=== PATIENT | female | born 1985 | race Caucasian/White ===

== ENCOUNTER → 2018-02-07 11:59 | Outpatient (CLI) | payer MEDICAID, SELFPAY ==
[2018-02-07 14:22] LABS: HCG Qualitative, Serum Negative (Negative)
[2018-02-07 14:33] LABS: Free T4 (Free Thyroxine) 1.39 ng/dl (0.76-1.46); Thyroid Stimulating Hormone 5.42 uIU/ml (0.358-3.740)
== END ==
PROVIDERS: PCP Physician Assistant; Visit Provider Physician Assistant
DX: E03.9 Hypothyroidism, unspecified (principal); N91.2 Amenorrhea, unspecified
CPT/HCPCS: 36415; 84439; 84443; 84703

== ENCOUNTER 2020-06-02 15:47 | Emergency (ER) | payer MEDICAID, SELFPAY ==
[2020-06-02 15:48] VITALS: PULSE 89; RESP 16; TEMP 37.2; O2SAT 98; BMI 56.5
--- NOTE | 2020-06-02 15:58 | HMH.EDUTC ---
[facility] [place] Disposition Clinical Impression: Sinusitis Qualifiers: Sinusitis location: unspecified location Chronicity: acute Recurrence: non-recurrent Qualified Code(s): J01.90 - Acute sinusitis, unspecified Otitis media Qualifiers: Otitis media type: suppurative Chronicity: acute Laterality: bilateral Recurrence: non-recurrent Spontaneous tympanic membrane rupture: without spontaneous rupture Qualified Code(s): H66.003 - Acute suppurative otitis media without spontaneous rupture of ear drum, bilateral Disposition: Home, Self-Care Condition on Discharge: Good Instructions: Middle Ear Infection, DI for Sinusitis Additional Instructions: Drink plenty of fluids. Take tylenol or ibuprofen for pain or fever. Take the medications as directed. Follow up with your regular doctor. GO TO THE ER FOR ANY WORSENING SYMPTOMS Prescriptions: Brompheniramine/Pseudoephed/Dm [Bromfed Dm Cough Syrup] 5 ml PO Q6HP PRN #240 syrup PRN Reason: Cough Transmission Status: Received by [facility] Amoxicillin/Potassium Clav [Augmentin 875-125 Tablet] 1 tab PO Q12H 10 Days #20 tab Transmission Status: Received by [facility] predniSONE [Prednisone 20mg Tab] 20 mg PO BID 4 Days #8 tab Transmission Status: Received by [facility] Referrals: Dorothy Hernández APRN [Primary Care Provider] - Time of Disposition: 16:11 Medical Decision Making - Medical Records Medical records reviewed: No: I reviewed the patient's medical records. - Donal Inquiry Pt receiving controlled substance: No Vital Signs: 06/02/20 15:48 06/02/20 16:12 Temperature 98.9 F 98.9 F Temperature Source Oral Oral Pulse Rate 89 Pulse Rate [Right] 89 Respiratory Rate 16 16 Blood Pressure 132/70 Blood Pressure Source Automatic Cuff Blood Pressure Position Sitting 02 Sat by Pulse Oximetry 98 Oxygen Delivery Method Room Air Room Air [facility] [place] HPI - General Stated complaint: Sore throat GARCIA Congestion Time Seen by Provider: 06/02/20 15:58 - History of Present Illness Provider Complaint: She states that she has had a cough, sore throat and sinus congestion for the past 3 days. She denies any possible contact with someone with covid. - Related Data Previous Rx's Medication Instructions Recorded Amoxicillin/Potassium Clav 1 tab PO Q12H 10 Days #20 tab 04/01/21 [Augmentin 875-125 Tablet] Brompheniramine/Pseudoephed/Dm 5 ml PO Q6HP PRN #240 syrup 06/02/20 [Bromfed Dm Cough Syrup] predniSONE [Prednisone 20mg 20 mg PO BID 4 Days #8 tab 06/02/20 Tab] Allergies Allergy/AdvReac Type Severity Reaction Status Date / Time From LORTAB Allergy Severe I-HIVES Uncoded 02/19/17 15:24 LATEX Allergy Severe I-HIVES Uncoded 02/19/17 15:24 SULFA (SULFONAMIDE) Allergy Severe SWELLING Uncoded 02/19/17 15:24 [facility] History - Hepatitis A Screen Attestation statement:: This patient has been screened for Hepatitis A risk factors. I have reviewed the patient's past medical history: Yes ROS Obtained: Yes All systems reviewed & no additional complaints - Constitutional Constitutional: Denies body ache, Reports chills, Denies fever(s), Reports poor appetite, Reports malaise - Eyes Eyes: Denies eye discharge - ENT Ears, Nose, Mouth, and Throat: Reports as per HPI - Cardiovascular Cardiovascular: Denies chest pain - Respiratory Respiratory: Reports as per HPI Physical Exam - General General appearance: alert, in no apparent distress - Head Head exam: atraumatic, normocephalic, normal inspection - Eye Eye exam: Present: normal appearance, PERRL, EOMI - ENT ENT exam: Present: mucous membranes moist, normal external ear exam - Expanded ENT Exam TM/Canal exam: Bilateral TM: erythema, bulging, effusion Mouth exam: Present: normal external inspection Teeth exam: Present: normal inspection Throat exam: Present: tonsillar erythema, tonsillomegaly. Absent: tonsillar exudate, R peritonsillar mass, L periton
[2020-06-02 16:12] VITALS: BP 132/70; PULSE 89; RESP 16; TEMP 37.2; O2SAT 98
== END 2020-06-02 16:14 | disposition home or self-care (01) ==
PROVIDERS: Emergency Provider Nurse Practitioner Family; PCP Nurse Practitioner Family
DX: J01.90 Acute sinusitis, unspecified (principal); H66.003 Acute suppurative otitis media without spontaneous rupture of ear drum, bilateral; Z88.2 Allergy status to sulfonamides; Z88.5 Allergy status to narcotic agent; Z91.040 Latex allergy status
CPT/HCPCS: 99202; G0463

== ENCOUNTER 2021-02-22 16:10 | Emergency (ER) | payer MEDICAID, SELFPAY ==
[2021-02-22 16:35] VITALS: BP 148/83; PULSE 66; RESP 18; TEMP 36.4; O2SAT 100; BMI 57.4
--- NOTE | 2021-02-22 16:49 | XR_ITS ---
PROCEDURE INFORMATION: Exam: XR Right Forearm Exam date and time: 02/22/2021 4:49 PM Age: 35 years old Clinical indication: Injury or trauma; Fall; Blunt trauma (contusions or hematomas); Arm, lower; Right TECHNIQUE: Imaging protocol: XR Right forearm. Views: 2 views. COMPARISON: No relevant prior studies available. FINDINGS: Bones/joints: There is no evidence of acute fracture. There is no evidence of joint malalignment or dislocation. Soft tissues: No focal soft tissue swelling. IMPRESSION: 1. No evidence of acute fracture. 2. No evidence of acute dislocation.
--- NOTE | 2021-02-22 17:33 | HMH.EDUTC ---
[facility] [place] Disposition Clinical Impression: Forearm sprain Qualifiers: Encounter type: initial encounter Laterality: right Qualified Code(s): S63.501A - Unspecified sprain of right wrist, initial encounter Disposition: Home, Self-Care Condition on Discharge: Good Instructions: Sprain, How To Perform RICE (Rest, Ice, Compress, Elevate) Additional Instructions: *RICE, Rest the extremity, Ice 15-20 minutes 3-4 times daily, Compress- wear the cesar wrap as discussed as much as possible to help reduce swelling and pain, Elevate the extremity when at rest *Cesar wrap is for support and help control swelling, use it except in the shower. Be sure that is not to tight but not to loose either *Elevate when resting *Ibuprofen as directed on package every 6-8 hours as needed for pain an inflammation. If need something more can take Tylenol in between doses of Ibuprofen to help Immediately follow up with your family doctor for new or worsening of symptoms, or no noticeable improvement over the next 3-5 days You may call back later this evening for the official reading of your xray Follow up with Orthopedics if needed Referrals: Dorothy Hernández APRN [Primary Care Provider] - As needed Gianluca Hernández JR, MD [Physician] - Time of Disposition: 17:34 Medical Decision Making - Donal Inquiry Pt receiving controlled substance: No Donal was queried for this patient: No Vital Signs: 02/22/21 16:35 02/22/21 17:35 Temperature 97.6 F 97.6 F Temperature Source Oral Pulse Rate 66 Pulse Rate [Left Brachial] 66 Respiratory Rate 18 18 Blood Pressure 148/83 H Blood Pressure [Left Arm] 148/83 H Blood Pressure Mean [Left Arm] 104 Blood Pressure Source [Left Arm] Automatic Cuff Blood Pressure Position [Left Arm] Sitting 02 Sat by Pulse Oximetry 100 Oxygen Delivery Method Room Air - Radiology Data #1 Image(s): Forearm Image Reviewed: Yes I reviewed the patient's radiology image Preliminary Findings: No Fracture Seen [facility] [place] HPI - General Stated complaint: AO [id number] right arm pain,home accident Time Seen by Provider: 02/22/21 16:50 Mode of Arrival: Ambulatory Source of Information: Patient Limitations: No Limitations Description of Symptoms (Recalled from Triage Doc. 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 it certain ways - Related Data Allergies Allergy/AdvReac Type Severity Reaction Status Date / Time acetaminophen [From Lortab] Allergy Verified 02/22/21 17:07 hydrocodone [From Lortab] Allergy Verified 02/22/21 17:07 latex Allergy Verified 02/22/21 17:07 Sulfa (Sulfonamide Allergy Verified 02/22/21 17:07 Antibiotics) - Worker's Comp Is this a Worker's Comp case?: No [facility] History - Hepatitis A Screen Drug use history?: No High risk sexual behaviors?: No History of sexually transmitted infection?: No Currently employed?: No Childcare worker?: No Do you have indoor plumbing?: Yes Do you have electricity?: Yes Attestation statement:: This patient has been screened for Hepatitis A risk factors. I have reviewed the patient's past medical history: Yes ROS Obtained: Yes All systems reviewed & no additional complaints, Yes Systems reviewed as appropriate & no additional complaints - Constitutional Constitutional: Reports system reviewed and no additional complaints, except as docu, Denies body ache, Denies chills, Denies fever(s) - ENT Ears, Nose, Mouth, and Throat: Reports system reviewed and no additional comp
[2021-02-22 17:35] VITALS: BP 148/83; PULSE 66; RESP 18; TEMP 36.4; O2SAT 100
== END 2021-02-22 17:40 | disposition home or self-care (01) ==
PROVIDERS: Emergency Provider Nurse Practitioner; PCP Nurse Practitioner Family
DX: S63.501A Unspecified sprain of right wrist, initial encounter (principal); W01.0XXA Fall on same level from slipping, tripping and stumbling without subsequent striking against object, initial encounter; Y92.73 Farm field as the place of occurrence of the external cause; Z88.2 Allergy status to sulfonamides
CPT/HCPCS: 73090; 99202; G0463

== ENCOUNTER → 2021-10-09 06:45 | Outpatient (CLI) | payer MEDICAID, SELFPAY ==
[2021-10-09 18:46] LABS: Basophils # 0.1 K/mm3 (0-0.2); Basophils % 0.6 % (0.1-2.0); Eosinophils % 0.1 % (0.1-12.0); Hematocrit 39.1 % (37.0-47.0); Hemoglobin 12.5 g/dL (12.2-16.2); Lymphocytes % 26.8 % (10-50); Mean Corpuscular HGB Conc 31.8 g/dL (31.8-35.4); Mean Corpuscular Hemoglobin 30.9 pg (27.0-31.2); Mean Platelet Volume 10.2 fl (7.4-10.4); Monocytes # 0.8 K/mm3 (0.1-1.0); Monocytes % 5.5 % (1.7-9.3); Platelet Count 375 K/mm3 (142-424); Red Blood Count 4.03 M/mm3 (4.20-5.40); Red Cell Distribution Width 14.4 % (11.5-17.5)
[2021-10-09 19:01] LABS: MANUAL DIFFERENTIAL MANUAL DIFFERENTIAL (MANUAL DIFF)
[2021-10-09 19:20] LABS: Lymphocytes % 30 % (10-50); Monocytes % 5 % (2-9); Neutrophils % 65 % (42-76); Platelet Estimate Normal; RBC Morphology Normal; Total Cells Counted 100
== END ==
PROVIDERS: PCP Family Medicine; Visit Provider Family Medicine
DX: R53.83 Other fatigue (principal); I10 Essential (primary) hypertension; Z20.822 Contact with and (suspected) exposure to COVID-19
CPT/HCPCS: 84439; 84443; 85007; 85025; C9803; U0003; U0005

== ENCOUNTER → 2021-11-09 08:46 | Outpatient (CLI) | payer MEDICAID, SELFPAY ==
[2021-11-09 14:13] LABS: Basophils # 0.1 K/mm3 (0-0.2); Basophils % 1.2 % (0.1-2.0); Eosinophils # 0.1 K/mm3 (0.0-0.4); Eosinophils % 1.4 % (0.1-12.0); Hematocrit 37.5 % (37.0-47.0); Hemoglobin 12.2 g/dL (12.2-16.2); Lymphocytes # 1.5 K/mm3 (0.7-4.5); Lymphocytes % 18.4 % (10-50); Mean Corpuscular HGB Conc 32.4 g/dL (31.8-35.4); Mean Corpuscular Hemoglobin 30.7 pg (27.0-31.2); Mean Corpuscular Volume 94.6 fl (81-99); Mean Platelet Volume 10.5 fl (7.4-10.4); Monocytes # 0.5 K/mm3 (0.1-1.0); Monocytes % 6.1 % (1.7-9.3); Neutrophils % 72.9 % (37.0-80.0); Platelet Count 331 K/mm3 (142-424); Red Blood Count 3.97 M/mm3 (4.20-5.40); Red Cell Distribution Width 13.9 % (11.5-17.5); White Blood Count 8.2 K/mm3 (4.8-10.8)
[2021-11-09 14:38] LABS: Free T4 (Free Thyroxine) 0.94 ng/dl (0.78-2.19)
[2021-11-09 14:49] LABS: Thyroid Stimulating Hormone 7.72 uIU/mL (0.465-4.68)
[2021-11-13 18:00] LABS: Vitamin B6 3.1 ug/L (3.4-65.2)
== END ==
PROVIDERS: PCP Family Medicine; Visit Provider Family Medicine
DX: E01.0 Iodine-deficiency related diffuse (endemic) goiter (principal); R53.83 Other fatigue; I10 Essential (primary) hypertension
CPT/HCPCS: 36415; 84207; 84439; 84443; 85025

== ENCOUNTER → 2021-12-11 11:45 | Outpatient (CLI) | payer MEDICAID, SELFPAY ==
[2021-12-11 18:48] LABS: Thyroid Stimulating Hormone 5.75 uIU/mL (0.465-4.68)
== END ==
PROVIDERS: PCP Family Medicine; Visit Provider Family Medicine
DX: E03.9 Hypothyroidism, unspecified (principal)
CPT/HCPCS: 84443

== ENCOUNTER → 2021-12-23 11:29 | Outpatient (CLI) | payer MEDICAID, SELFPAY ==
--- NOTE | 2021-12-23 11:41 | XR_ITS ---
PROCEDURE INFORMATION: Exam: XR Right Foot Complete; Alignment Exam date and time: 12/23/2021 11:42 AM Age: 36 years old Clinical indication: Pain; Foot; Bilateral; Additional info: Foot pain TECHNIQUE: Imaging protocol: Radiologic exam of the Right foot. Views: 3 or more views. COMPARISON: No relevant prior studies available. FINDINGS: Bones/joints: Normal. No acute fracture. Joint spaces are preserved. No dislocation or subluxation. Soft tissues: Normal. IMPRESSION: No evidence of acute osseous injury.
--- NOTE | 2021-12-23 11:41 | XR_ITS ---
PROCEDURE INFORMATION: Exam: XR Left Foot Complete; Alignment Exam date and time: 12/23/2021 11:42 AM Age: 36 years old Clinical indication: Pain; Foot; Bilateral; Additional info: Foot pain TECHNIQUE: Imaging protocol: Radiologic exam of the Left foot. Views: 3 or more views. COMPARISON: No relevant prior studies available. FINDINGS: Bones/joints: Minimal enthesophyte plantar margin of the calcaneus at the site of attachment of the plantar aponeurosis. Soft tissues: Normal. IMPRESSION: 1. No evidence of acute osseous injury. 2. Prominent calcaneal spur.
== END ==
PROVIDERS: PCP Family Medicine; Visit Provider Nurse Practitioner Family
DX: M79.672 Pain in left foot (principal); M79.671 Pain in right foot
CPT/HCPCS: 73630

== ENCOUNTER → 2022-04-10 20:49 | Outpatient (CLI) | payer MEDICAID, SELFPAY ==
[2022-04-10 19:51] LABS: Alanine Aminotransferase 20 U/L (12-78); Albumin Level 4.1 g/dl (3.5-5.0); Albumin/Globulin Ratio 1.3 (1.1-1.8); Alkaline Phosphatase 105 U/L (38-126); Anion Gap 10.4 mEq/L (5-15); Aspartate Amino Transferase 25 U/L (14-36); Blood Urea Nitrogen 10 mg/dl (7-17); Carbon Dioxide 27 mmol/L (22.0-30.0); Chloride 102 mmol/L (98-107); Cholesterol 196 mg/dl (140-200); Estimated Glomerular Filt Rate 112 ml/min (>60); GFR (African American) 136 ML/MIN (>60); Globulin 3.1 g/dL (1.3-3.2); Glucose 94 mg/dl (74-100); HDL Cholesterol 39 mg/dl (40-60); Potassium 4.4 mmoL/L (3.5-5.1); Sodium 135 mmol/L (136-145); Total Protein,Serum 7.2 g/dl (6.3-8.2); Triglycerides 189 mg/dl (30-150); VLDL Cholesterol 38 mg/dL (0-40)
[2022-04-10 20:03] LABS: Direct LDL Cholesterol 112.28 mg/dL (100-129)
== END ==
LOC: LAB 04-13 00:35 → LAB.DROPOF 04-18 08:14
PROVIDERS: PCP Nurse Practitioner Family; Visit Provider Nurse Practitioner Family
DX: I10 Essential (primary) hypertension (principal); E03.9 Hypothyroidism, unspecified
CPT/HCPCS: 80053; 80061; 84443

== ENCOUNTER → 2022-05-31 07:12 | Outpatient (CLI) | payer MEDICAID, SELFPAY ==
[2022-05-31 17:58] LABS: Basophils # 0.1 K/mm3 (0-0.2); Basophils % 1.3 % (0.1-2.0); Eosinophils # 0.4 K/mm3 (0.0-0.4); Eosinophils % 4.2 % (0.1-12.0); Hemoglobin 12.3 g/dL (12.2-16.2); Lymphocytes # 2.6 K/mm3 (0.7-4.5); Lymphocytes % 27.5 % (10-50); Mean Corpuscular HGB Conc 30.8 g/dL (31.8-35.4); Mean Corpuscular Hemoglobin 28.7 pg (27.0-31.2); Mean Corpuscular Volume 93.2 fl (81-99); Mean Platelet Volume 9.8 fl (7.4-10.4); Monocytes # 0.4 K/mm3 (0.1-1.0); Monocytes % 4.4 % (1.7-9.3); Neutrophils # 5.8 K/mm3 (1.8-7.8); Neutrophils % 62.6 % (37.0-80.0); Platelet Count 343 K/mm3 (142-424); Red Blood Count 4.29 M/mm3 (4.20-5.40); Red Cell Distribution Width 14.1 % (11.5-17.5); White Blood Count 9.3 K/mm3 (4.8-10.8)
[2022-05-31 18:04] LABS: Alanine Aminotransferase 18 U/L (12-78); Albumin Level 4.3 g/dl (3.5-5.0); Albumin/Globulin Ratio 1.4 (1.1-1.8); Alkaline Phosphatase 118 U/L (38-126); Anion Gap 12.5 mEq/L (5-15); Aspartate Amino Transferase 24 U/L (14-36); Bilirubin,Total 0.7 mg/dl (0.2-1.3); Blood Urea Nitrogen 12 mg/dl (7-17); Carbon Dioxide 29 mmol/L (22.0-30.0); Chloride 99 mmol/L (98-107); Estimated Glomerular Filt Rate 94 ml/min (>60); GFR (African American) 114 ML/MIN (>60); Glucose 94 mg/dl (74-100); Potassium 4.5 mmoL/L (3.5-5.1); Sodium 136 mmol/L (136-145); Total Protein,Serum 7.3 g/dl (6.3-8.2)
[2022-05-31 18:35] LABS: Thyroid Stimulating Hormone 7.35 uIU/mL (0.465-4.68)
== END ==
PROVIDERS: PCP Family Medicine; Visit Provider Family Medicine
DX: E03.9 Hypothyroidism, unspecified (principal); I10 Essential (primary) hypertension; R60.9 Edema, unspecified
CPT/HCPCS: 80053; 84443; 85025

== ENCOUNTER 2022-06-18 08:23 | Observation (INO) | payer MEDICAID, SELFPAY ==
[2022-06-18 08:24] VITALS: BP 161/97; PULSE 84; RESP 18; TEMP 36.7; O2SAT 99; BMI 43.2
--- NOTE | 2022-06-18 08:36 | PC.NURSE ---
ED MD AT BEDSIDE
--- NOTE | 2022-06-18 08:49 | CA_ITS ---
FINAL REPORT TECHNIQUE: Ultrasound images of the deep venous system were obtained from the left groin to the calf veins. CLINICAL HISTORY: leg swelling x 1 month. No known trauma. Morbid obesity. HTN. FINDINGS: The deep venous system is normally compressible. Normal flow is identified. IMPRESSION: No evidence of left lower extremity DVT. Reviewed, Interpreted and Dictated by Ronaldo Yepez III, MD Transcribed by Duane Bustamante Authenticated and [facility]
--- NOTE | 2022-06-18 08:51 | HMH.EDEXTP ---
Discharge Plan Disposition Patient Disposition: Admitted As Inpatient Prescriptions Prescriptions: No Action cetirizine 10 mg tablet 10 mg PO DAILY lisinopril 10 mg tablet 10 mg PO DAILY meloxicam 7.5 mg tablet 7.5 mg PO DAILY levothyroxine 125 mcg tablet 125 mcg PO DAILY Referrals Follow up/Referrals: Sourav Ambrocio MD [Primary Care Provider] - See instructions Clinical Impressions Clinical Impression: Cellulitis Instructions Patient Instructions: Cellulitis Discharge ED Provider: Jazmín Carmona Extremity Problem HPI General Chief complaint: Extremity Problem,Nontraumatic Stated complaint: left leg swollen, no accident Time Seen by Provider: 06/18/22 08:40 Mode of Arrival: Ambulatory Source of Information: Patient Limitations: No Limitations Description of Symptoms (Recalled from ER Triage Doc. by RN): PT C/O INCREASED SWELLING TO LEFT LOWER LEG FOR ABOUT 1 MONTH. HAS SEEN PCP ABOUT 1 WEEK AGO. REPORTS PAIN AND WARM TO TOUCH. History of Present Illness HPI Narrative: Patient is a 36-year-old female who is here secondary to left lower extremity swelling for 1 month. Patient is complaining about left lower extremity swelling and saw the primary care doctor 1 week ago. Patient has no fevers or chills. No trauma. Patient has no clotting disorder or long flight or long drive. No history of cancer. No hypercoagulable state. Complaint: extremity swelling Onset (ago): month(s) Consistency: constant Location: left and lower extremity Severity scale (1-10): 8 Quality: aching, dull and constant Radiation: distal Relieving factors: nothing Exacerbating factors: range of motion, walking, exertion and palpation Associated symptoms: denies other symptoms Related Data Home Medications Medication Instructions Recorded Confirmed cetirizine 10 mg tablet 10 mg PO DAILY Allergy symptoms 06/18/22 06/18/22 levothyroxine 125 mcg tablet 125 mcg PO DAILY THYROID 06/18/22 06/18/22 lisinopril 10 mg tablet 10 mg PO DAILY High blood pressure 06/18/22 06/18/22 meloxicam 7.5 mg tablet 7.5 mg PO DAILY Pain 06/18/22 06/18/22 Allergies Allergy/AdvReac Type Severity Reaction Status Date / Time hydrocodone [From Lortab] Allergy Verified 05/31/22 08:59 latex Allergy Verified 05/31/22 08:59 Sulfa (Sulfonamide Allergy Verified 05/31/22 08:59 Antibiotics) PFSH [facility] Disclaimer: The information contained in this section may have been updated after the patient was seen, as this information can be updated by other users. Medical History Calcaneal spur of left foot Callus of foot Forearm sprain Hypertension Metatarsalgia of both feet Nausea Otitis media Sinusitis Surgical History H/O tubal ligation History of cholecystectomy Previous section Family History Grandmother Cancer Coronary artery disease Kidney disease Grandfather Coronary artery disease Father Coronary artery disease Diabetes Heart attack Hypertension Kidney disease Mother Diabetes Stroke Social History Smoking Status: Never smoker alcohol intake: never substance use type: denies use current occupational status: unemployed Travel in the last 8 weeks: None household members: family and children housing: house ROS Obtained: Yes All systems reviewed & no additional complaints except as documented Constitutional Constitutional: Reports system reviewed and no additional complaints, except as documented Eyes Eyes: Reports system reviewed and no additional complaints, except as documented ENT Ears, Nose, Mouth, and Throat: Reports system reviewed and no additional complaints, except as documented Cardiovascular Cardiovascular: Reports system reviewed and no a
--- NOTE | 2022-06-18 08:51 | PC.NURSE ---
VASCULAR LAB NOTIFIED OF DOPPLER
--- NOTE | 2022-06-18 08:58 | PC.NURSE ---
SWING FRAME GRINDER OPERATOR AT BEDSIDE FOR DOPPLER
--- NOTE | 2022-06-18 09:11 | PC.NURSE ---
LABORATORY TECHNOLOGIST REPORTS DOPPLER IS NEGATIVE
--- NOTE | 2022-06-18 09:25 | PC.NURSE ---
ROUNDED ON PT AT THIS TIME. NO NEEDS VOICED
[2022-06-18 09:35] LABS: Chloride 100 mmol/L (98-107)
[2022-06-18 09:36] LABS: Potassium 4.3 mmoL/L (3.5-5.1); Sodium 136 mmol/L (136-145)
[2022-06-18 09:38] LABS: Alanine Aminotransferase 19 U/L (12-78); Alkaline Phosphatase 91 U/L (38-126); Anion Gap 14.3 mEq/L (5-15); Aspartate Amino Transferase 24 U/L (14-36); Bilirubin,Total 0.8 mg/dl (0.2-1.3); Blood Urea Nitrogen 9 mg/dl (7-17); Carbon Dioxide 26 mmol/L (22.0-30.0); Creatinine Clearance Estimated 144 mL/min (50-200); Estimated Glomerular Filt Rate 139 ml/min (>60); GFR (African American) 168 ML/MIN (>60)
[2022-06-18 09:39] LABS: Albumin Level 3.9 g/dl (3.5-5.0); Albumin/Globulin Ratio 1.1 (1.1-1.8); Calcium 8.7 mg/dl (8.4-10.2); Globulin 3.4 g/dL (1.3-3.2); Glucose 94 mg/dl (74-100); Total Protein,Serum 7.3 g/dl (6.3-8.2)
[2022-06-18 09:44] LABS: Basophils # 0.1 K/mm3 (0-0.2); Basophils % 0.6 % (0.1-2.0); Eosinophils # 0.3 K/mm3 (0.0-0.4); Eosinophils % 3.2 % (0.1-12.0); Hematocrit 35.9 % (37.0-47.0); Hemoglobin 11.6 g/dL (12.2-16.2); Lymphocytes # 2.2 K/mm3 (0.7-4.5); Lymphocytes % 22.9 % (10-50); Mean Corpuscular HGB Conc 32.5 g/dL (31.8-35.4); Mean Corpuscular Hemoglobin 29.1 pg (27.0-31.2); Mean Corpuscular Volume 89.5 fl (81-99); Mean Platelet Volume 8.4 fl (7.4-10.4); Monocytes # 0.4 K/mm3 (0.1-1.0); Monocytes % 3.6 % (1.7-9.3); Neutrophils # 6.6 K/mm3 (1.8-7.8); Neutrophils % 69.7 % (37.0-80.0); Platelet Count 249 K/mm3 (142-424); Red Blood Count 4.01 M/mm3 (4.20-5.40); Red Cell Distribution Width 14.1 % (11.5-17.5); White Blood Count 9.5 K/mm3 (4.8-10.8)
[2022-06-18 09:56] LABS: Activated Partial Thrombo Time 21.8 seconds (22.8-30.6); INR 0.89 (0.9-1.1); Prothrombin Time 9.7 seconds (10.1-12.5)
[2022-06-18 10:20] LABS: C-Reactive Protein 25.7 mg/L (0-4)
--- NOTE | 2022-06-18 10:35 | PC.NURSE ---
waiting artificial insemination technician back from dr. lynn (hospitalist)
[2022-06-18 10:38] LABS: D-Dimer 0.89 ug/mL (0.0-0.5)
[2022-06-18 10:39] LABS: Erythrocyte Sedimentation Rate 75 mm/hr (0-20)
[2022-06-18 10:40] LABS: Coronavirus 19, PCR Not Detected (NotDetected); Influenza A, PCR Not Detected (NotDetected); Influenza B, PCR Not Detected (NotDetected)
--- NOTE | 2022-06-18 10:40 | PC.NURSE ---
PT UPDATED ON POC BY DR BERGER, PT AGREES TO ADMISSION
--- NOTE | 2022-06-18 10:47 | EXP.PHA.CONS ---
Pharmacy Consult Date: 06/18/22 Time: 10:47 Referring provider: DR. BERGER Reason for Consult:: VANCOMYCIN DOSING Allergies Allergy/AdvReac Type Severity Reaction Status Date / Time hydrocodone [From Lortab] Allergy Verified 05/31/22 08:59 latex Allergy Verified 05/31/22 08:59 Sulfa (Sulfonamide Allergy Verified 05/31/22 08:59 Antibiotics) Home Medications Medication Instructions Recorded Confirmed Type cetirizine 10 mg tablet 10 mg PO DAILY ALLERGIES 06/18/22 06/18/22 History levothyroxine 125 mcg capsule 125 mcg PO DAILY THYROID 06/18/22 06/18/22 History lisinopril 10 mg tablet 10 mg PO DAILY High blood pressure 06/18/22 06/18/22 History New Prescriptions to Start Prescriptions: Height: 1.68 m Weight: 121.563 kg Laboratory Results:: Laboratory Results - last 24 hr 06/18/22 09:22: Sodium 136, Potassium 4.3, Chloride 100, Carbon Dioxide 26, Anion Gap 14.3, BUN 9, Creatinine 0.50 L, Estimated Creat Clear 144, Estimated GFR 139, Est GFR ( Amer) 168, Glucose 94, Calcium 8.7, Total Bilirubin 0.8, AST 24, ALT 19, Alkaline Phosphatase 91, Total Protein 7.3, Albumin 3.9, Globulin 3.4 H, Albumin/Globulin Ratio 1.1 06/18/22 09:22: PT 9.7 L, INR 0.89 L, APTT 21.8 L 06/18/22 09:37: WBC 9.5, RBC 4.01 L, Hgb 11.6 L, Hct 35.9 L, MCV 89.5, MCH 29.1, MCHC 32.5, RDW 14.1, Plt Count 249, MPV 8.4, Neut % (Auto) 69.7, Lymph % (Auto) 22.9, [place] % (Auto) 3.6, Eos % (Auto) 3.2, Baso % (Auto) 0.6, Neut # (Auto) 6.6, Lymph # (Auto) 2.2, [place] # (Auto) 0.4, Eos # (Auto) 0.3, Baso # (Auto) 0.1 06/18/22 09:37: ESR 75 H 06/18/22 09:37: C-Reactive Protein 25.7 H Medical History: Medical History (Updated 06/18/22 @ 08:36 by Dione Peterson RN) Calcaneal spur of left foot Callus of foot Forearm sprain Hypertension Metatarsalgia of both feet Nausea Otitis media Sinusitis Assessment and Plan Assessment and plan all Dx Assessment and Plan for all problems:: Pharmacokinetic dosing service Objective: Patient: Floor: Age: 36 yo Serum creatinine: 0.5 mg/dL Height: 66.0 Inches Weight (kg): 121.6 Assessment: IBW (kg): 59.30 Dosing wt(kg): 121.6 Estimated Creatinine clearance (ml/min): 130 Clearance limited to 130 ml/min to reduce risk of overdosing. CRCL method: Cockcroft and Gault using ibw(default). Drug selected: Vancomycin Loading dose (mg): 0 Vd (liters): 97.3 (factor used: 0.8 L/kg) Julio César (hr-1): 0.112 Half life (hrs): 6.19 Recommended dose: 2000 mg Interval: 8 hrs Infusion time (hrs): 2.0 Predicted peak (mcg/mL): 31.1 Predicted trough (mcg/mL): 15.88 Total body weight is being used for vancomycin dosing. Recommendations: Give Vancomycin 2000 mg q 8 hrs with an expected Cpeak of 31.1 mcg/ml and an expected Ctrough of 15.88 mcg/ml. ----Vanco only - ignore for aminoglycosides----- CLvanco= 10.90 L/hr AUC 0-24 /BASILIO Data: BASILIO 0.5 mcg/mL: AUC/BASILIO: 1100.9 BASILIO 1.0 mcg/mL: AUC/BASILIO: 550.5 --------- BASILIO 1.5 mcg/mL: AUC/BASILIO: 367.0 BASILIO 2.0 mcg/mL: AUC/BASILIO: 275.2
--- NOTE | 2022-06-18 10:48 | PC.NURSE ---
DR BERGER SPEAKING WITH DR. SHI FOR ADMISSION
--- NOTE | 2022-06-18 10:49 | HMH.PHAINT1 ---
Pharmacy Intervention Comments: MEDICATION RECONCILIATION COMPLETED ON PATIENT USING EXTERNAL FILL HISTORY FROM PHARMACY. -JEN DAVIDSON, MICHAELAD
--- NOTE | 2022-06-18 11:06 | PC.NURSE ---
dr. lynn stated would see pt prior to official admitting pt.
--- NOTE | 2022-06-18 11:08 | PC.NURSE ---
CARE MANAGEMENT NOTIFIED OF ADMISSION
[2022-06-18 11:10] LABS: Procalcitonin 0.042 ng/mL (0.0-2.0)
[2022-06-18 11:34] LABS: Lactic Acid 0.8 mmol/L (0.7-2.1)
[2022-06-18 11:44] LABS: Hemoglobin A1C 5.3 % (4.0-6.0)
--- NOTE | 2022-06-18 11:59 | PC.NURSE ---
REPORT GIVEN TO Tiffani LENTZ RN
--- NOTE | 2022-06-18 12:14 | EXP.HP ---
History of Present Illness *Admission Date: 06/18/22 *Reason for visit:: leg swelling, pain *History of present illness: Ms. Dickson is a 36-year-old female who presented with complaint of left lower leg pain from the ankle to the knee. Pain has been progressive over the past month. She notes occasional redness of the leg. Starting to have some pain in her right leg as well starting at the ankle. She denies any fevers, systemic symptoms, chest pain, nausea, vomiting, diarrhea, headache, trauma to her legs. Has not seen her PCP or been on antibiotics in the past month. ER initial work-up including imaging of her legs and labs. Doppler left lower extremity negative for DVT. White cell count normal however has elevated inflammatory markers. ER concern for cellulitis. Given pain and redness, initiated on IV vancomycin and cefepime. Consulted medicine for admission and further management. After arriving to the floor, patient is stable on room air. She states she is occasionally short of breath when chasing her kids but able to lay flat without dyspnea. Swelling and pain worse as the day goes on. Sometimes makes it hard to take her pants or socks off with the swelling. Denies any trauma or breaks in her skin. Does report family history of arthritis in her mom, not sure if it is rheumatologic. No known history of gout or arthritis in patient. [facility] Disclaimer: The information contained in this section may have been updated after the patient was seen, as this information can be updated by other users. Medical History Calcaneal spur of left foot Callus of foot Forearm sprain Hypertension Metatarsalgia of both feet Nausea Otitis media Sinusitis Surgical History H/O tubal ligation History of cholecystectomy Previous section Family History Diabetes Father Mother Coronary artery disease Grandmother Grandfather Father Kidney disease Grandmother Father Heart attack Father Cancer Grandmother Hypertension Father Stroke Mother Social History Smoking Status: Never smoker alcohol intake: never substance use type: denies use current occupational status: unemployed Travel in the last 8 weeks: None household members: family and children housing: house Review of Systems Review of Systems Review of systems (narrative): 14 point review of systems performed, pertinent positives and negatives as per [facility] Meds Home Medications and Allergies Home Medications Medication Instructions Recorded Confirmed Type cetirizine 10 mg tablet 10 mg PO DAILY Allergy symptoms 06/18/22 06/18/22 History levothyroxine 125 mcg tablet 125 mcg PO DAILY THYROID 06/18/22 06/18/22 History lisinopril 10 mg tablet 10 mg PO DAILY High blood pressure 06/18/22 06/18/22 History meloxicam 7.5 mg tablet 7.5 mg PO DAILY Pain 06/18/22 06/18/22 History New Prescriptions to Start Prescriptions: Allergies Allergy/AdvReac Type Severity Reaction Status Date / Time hydrocodone [From Lortab] Allergy Verified 05/31/22 08:59 latex Allergy Verified 05/31/22 08:59 Sulfa (Sulfonamide Allergy Verified 05/31/22 08:59 Antibiotics) Exam Data for Last 24 hours Vital signs and Labs for Last 24 Hours: Temp Pulse Resp BP Pulse Ox 98.0 F 84 18 161/97 H 99 06/18/22 08:24 06/18/22 08:24 06/18/22 08:24 06/18/22 08:24 06/18/22 08:24 Laboratory Results - last 24 hr 06/18/22 09:22: Sodium 136, Potassium 4.3, Chloride 100, Carbon Dioxide 26, Anion Gap 14.3, BUN 9, Creatinine 0.50 L, Estimated Creat Clear 144, Estimated GFR 139, Est GFR ( Amer) 168, Glucose 94, Calcium 8.7, Total Bilirubin 0.8, AST 24, ALT 19, Alkaline Phosphatase 91, Total Protein 7.3, Albumin 3.9, Globulin 3.4 H, Albumin/Globu
[2022-06-18 12:17] VITALS: BP 136/68; PULSE 80; RESP 18; TEMP 36.7; O2SAT 99
--- NOTE | 2022-06-18 12:24 | PC.NURSE ---
arrived by w/c from ED
[2022-06-18 12:27] VITALS: BP 136/68; PULSE 82; RESP 18; TEMP 36.7; O2SAT 98; BMI 59.4
[2022-06-18 14:41] LABS: NT Pro Brain Natriuretic Pep. 48.5 pg/mL (0-125)
--- NOTE | 2022-06-18 15:09 | PC.NURSE ---
A&OX4. TOLERATING RA WELL. PT UP INDEPENDENTLY IN ROOM. NO C/O PAIN THUS FAR. BLE RED AND WARM, EDEMA NOTED. LEFT SIDE IS WORSE THAN RIGHT. PT RESTING AT THIS TIME, VSS.
[2022-06-18 16:00] VITALS: BP 131/63; PULSE 75; RESP 20; TEMP 36.8; O2SAT 100
[2022-06-18 19:28] VITALS: BP 123/92; PULSE 85; RESP 18; TEMP 36.6; O2SAT 100
[2022-06-18 20:00] VITALS: O2SAT 97
[2022-06-19 04:00] VITALS: BP 132/74; PULSE 76; RESP 15; TEMP 36.3; O2SAT 95; BMI 59.3
[2022-06-19 06:20] LABS: Basophils % 0.4 % (0.1-2.0); Eosinophils # 0.3 K/mm3 (0.0-0.4); Eosinophils % 2.8 % (0.1-12.0); Hematocrit 35.3 % (37.0-47.0); Hemoglobin 11.2 g/dL (12.2-16.2); Lymphocytes # 2.6 K/mm3 (0.7-4.5); Lymphocytes % 24.3 % (10-50); Mean Corpuscular HGB Conc 31.7 g/dL (31.8-35.4); Mean Corpuscular Hemoglobin 28.7 pg (27.0-31.2); Mean Corpuscular Volume 90.7 fl (81-99); Mean Platelet Volume 8.6 fl (7.4-10.4); Monocytes # 0.4 K/mm3 (0.1-1.0); Monocytes % 3.9 % (1.7-9.3); Neutrophils # 7.4 K/mm3 (1.8-7.8); Neutrophils % 68.6 % (37.0-80.0); Platelet Count 231 K/mm3 (142-424); Red Blood Count 3.89 M/mm3 (4.20-5.40); Red Cell Distribution Width 14.1 % (11.5-17.5); White Blood Count 10.8 K/mm3 (4.8-10.8)
[2022-06-19 07:04] LABS: Erythrocyte Sedimentation Rate 52 mm/hr (0-20)
[2022-06-19 07:11] LABS: Chloride 100 mmol/L (98-107); Sodium 133 mmol/L (136-145)
[2022-06-19 07:14] LABS: Alanine Aminotransferase 16 U/L (12-78); Albumin Level 3.6 g/dl (3.5-5.0); Albumin/Globulin Ratio 1.2 (1.1-1.8); Alkaline Phosphatase 75 U/L (38-126); Aspartate Amino Transferase 33 U/L (14-36); Bilirubin,Total 1.2 mg/dl (0.2-1.3); Blood Urea Nitrogen 12 mg/dl (7-17); Calcium 8.3 mg/dl (8.4-10.2); Carbon Dioxide 28 mmol/L (22.0-30.0); Creatinine Clearance Estimated 120 mL/min (50-200); Estimated Glomerular Filt Rate 112 ml/min (>60); GFR (African American) 136 ML/MIN (>60); Glucose 93 mg/dl (74-100); Magnesium 1.9 mg/dl (1.6-2.3); Total Protein,Serum 6.6 g/dl (6.3-8.2)
[2022-06-19 07:20] VITALS: BP 118/66; PULSE 80; RESP 18; TEMP 36.9; O2SAT 96
[2022-06-19 07:21] LABS: C-Reactive Protein 30.8 mg/L (0-4)
--- NOTE | 2022-06-19 07:24 | EXP.DC.SUM ---
General Admission date:: 06/18/22 Discharge date: 06/19/22 HPI HPI HPI: Ms. Dickson is a 36-year-old female who presented with complaint of left lower leg pain from the ankle to the knee. Pain has been progressive over the past month. She notes occasional redness of the leg. Starting to have some pain in her right leg as well starting at the ankle. She denies any fevers, systemic symptoms, chest pain, nausea, vomiting, diarrhea, headache, trauma to her legs. Has not seen her PCP or been on antibiotics in the past month. ER initial work-up including imaging of her legs and labs. Doppler left lower extremity negative for DVT. White cell count normal however has elevated inflammatory markers. ER concern for cellulitis. Given pain and redness, initiated on IV vancomycin and cefepime. Consulted medicine for admission and further management. After arriving to the floor, patient is stable on room air. She states she is occasionally short of breath when chasing her kids but able to lay flat without dyspnea. Swelling and pain worse as the day goes on. Sometimes makes it hard to take her pants or socks off with the swelling. Denies any trauma or breaks in her skin. Does report family history of arthritis in her mom, not sure if it is rheumatologic. No known history of gout or arthritis in patient. Hospital Course Hospital Course Hospital Course: 36-year-old female with morbid obesity and hypothyroidism.? Concern for cellulitis versus lipedema versus lymphedema.? Admitted for IV antibiotics and monitoring overnight.? Ultrasound negative for DVT.? Clinically stable.? Problems addressed as follows: Cellulitis versus lymphedema Elevated inflammatory marker -Lower legs with edema bilaterally.? Tender to palpation.? No significant erythema by time she arrived to the floor. Was started on empiric IV antibiotics. Will complete total of 5 days of antibiotics with transition to oral Keflex 500 mg twice daily. Given duration of onset of a month, concern for this being related to lipedema or lymphedema versus cellulitis. Echo obtained. Poor visualization due to body habitus however function grossly normal. EF greater than 55%. Diastolic parameters inconclusive. BNP obtained, 48. Trialed Lasix 40 mg IV x1. Had good response. Marginal change in lower extremity edema. oven tender on exam however. Marginally better day of discharge. Patient would benefit from eval in lymphedema clinic. Outpatient order placed for eval and treatment. Would still benefit from further work-up for alternate etiologies of her pain. Will defer further work-up to PCP. Of note uric acid was obtained, normal at 5.0. Hypothyroidism: Continue home levothyroxine Hypertension: Continue home lisinopril Morbid obesity complicates all aspects of her care.? May underlie her current presentation as well. Stable for discharge home with further management as an outpatient. Exam Data for Last 24 hours Vital signs and Labs for Last 24 Hours: Temp Pulse Resp BP Pulse Ox 97.3 F L 76 15 132/74 95 06/19/22 04:00 06/19/22 04:00 06/19/22 04:00 06/19/22 04:00 06/19/22 04:00 Laboratory Results - last 24 hr 06/18/22 09:22: Sodium 136, Potassium 4.3, Chloride 100, Carbon Dioxide 26, Anion Gap 14.3, BUN 9, Creatinine 0.50 L, Estimated Creat Clear 144, Estimated GFR 139, Est GFR ( Amer) 168, Glucose 94, Calcium 8.7, Total Bilirubin 0.8, AST 24, ALT 19, Alkaline Phosphatase 91, Total Protein 7.3, Albumin 3.9, Globulin 3.4 H, Albumin/Globulin Ratio 1.1 06/18/22 09:22: PT 9.7 L, INR 0.89 L, APTT 21.8 L 06/18/22 09:22: Uric Acid 5.0, NT-Pro-B Natriuret Pep 48.5 06/18/22 09:37: WBC 9.5, RBC 4.01 L, Hgb 11.6 L, Hct 35.9 L, MCV 89.5, MCH 29.1, MCHC 32.5, RDW 14.1, Plt Count 249, MPV 8.4, Neut % (Auto) 69.7, Lymph % (Auto) 22.9, [place] % (Auto) 3.6, Eos % (Auto) 3.2, Baso % (Auto) 0.6, Neut # (Auto) 6.6, Lymph # (Auto) 2.2, [place] # (Auto) 0.4, Eos # (Auto) 0.3, Baso # (Auto) 0.1
[2022-06-19 11:21] LABS: Vancomycin,Trough 21.4 ug/mL (5.0-10.0)
--- NOTE | 2022-06-19 12:09 | HMH.PHAINT1 ---
Pharmacy Intervention Comments: Counseled patient on new medication (cephalexin) to START at discharge. Patient expressed understanding of medication's indication, dose, route, frequency, and potential side effects.
--- NOTE | 2022-06-20 15:17 | CARE MANAGER ---
Spoke with patient related to hospital discharge. She states she feels worse and her leg is the same. She states that she has not called PCP for follow up appointment. Recommended she get an appointment tomorrow or Saturday. She is aware of her appt. with lymphedema clinic and she picked up her antibiotic. Denies any other questions or concerns. DOMENICO Rosas
== END 2022-06-19 12:37 | disposition home or self-care (01) ==
LOC: ER 11:09 → 2ND 11:33
PROVIDERS: Admitting Provider Internal Medicine Adolescent Medicine; Emergency Provider Emergency Medicine; PCP Family Medicine; Visit Provider Internal Medicine Adolescent Medicine
DX: L03.90 Cellulitis, unspecified (principal); E03.9 Hypothyroidism, unspecified; I10 Essential (primary) hypertension; Z79.899 Other long term (current) drug therapy; Z68.43 Body mass index [BMI] 50.0-59.9, adult; I89.0 Lymphedema, not elsewhere classified
CPT/HCPCS: 36415; 80053; 80202; 83036; 83605; 83735; 83880; 84145; 84550; 85025; 85378; 85610; 85651; 85730; 86140; 87040; 93306; 93971; 99285; C9803; G0378; J3370; U0003; U0005

== ENCOUNTER → 2022-09-05 09:40 | Outpatient (CLI) | payer MEDICAID, SELFPAY ==
[2022-09-05 17:29] LABS: Basophils % 0.4 % (0.1-2.0); Eosinophils # 0.3 K/mm3 (0.0-0.4); Eosinophils % 3.5 % (0.1-12.0); Hematocrit 38.3 % (37.0-47.0); Hemoglobin 11.8 g/dL (12.2-16.2); Lymphocytes # 2.5 K/mm3 (0.7-4.5); Lymphocytes % 31.5 % (10-50); Mean Corpuscular HGB Conc 30.9 g/dL (31.8-35.4); Mean Corpuscular Hemoglobin 27.5 pg (27.0-31.2); Mean Corpuscular Volume 88.9 fl (81-99); Mean Platelet Volume 10.5 fl (7.4-10.4); Monocytes # 0.4 K/mm3 (0.1-1.0); Monocytes % 5.4 % (1.7-9.3); Neutrophils # 4.7 K/mm3 (1.8-7.8); Neutrophils % 59.2 % (37.0-80.0); Platelet Count 303 K/mm3 (142-424); Red Cell Distribution Width 14.5 % (11.5-17.5); White Blood Count 7.9 K/mm3 (4.8-10.8)
[2022-09-05 17:54] LABS: Thyroid Stimulating Hormone 7.44 uIU/mL (0.465-4.68)
== END ==
PROVIDERS: PCP Family Medicine; Visit Provider Family Medicine
DX: D64.9 Anemia, unspecified (principal); E03.9 Hypothyroidism, unspecified
CPT/HCPCS: 84443; 85025

== ENCOUNTER 2022-09-11 09:00 | Outpatient (RCR) | payer MEDICAID, SELFPAY ==
--- NOTE | 2022-08-17 11:32 | HMH.PTOPEV ---
PT Outpatient Evaluation Rehab PT Outpatient Evaluation Start: 08/17/22 10:05 Freq: Status: Active Protocol: Document 08/17/22 10:07 HANNAHBI (Rec: 08/17/22 11:32 SHANNA [id number]) E-signed By Radha Hines, PT Outpatient Therapy Subjective History Subjective History Pt is a 37 year old female that presents to the PT clinic with reports of (B) foot pain . Pt reports that after walking/standing ~ 2 minutes she experiences (B) foot burning/ pain. Pt reports that she began to notice the pain in her feet ~ 6 months ago. Pt reports that she had a callus removed from her L foot which helped with the pain some. Pt reports she was given voltaren gel which does not help much. Pt reports she has also been taking mobic medication but has not noticed any improvement. Pt reports she notices a little bit more pain in L>R. Pt reports she notices the most pain in the morning and is consistent throughout the day. Pt states she has a difficult time playing with her children or doing many activities due to her feet. Pt reports that she has tried a cold pack, hot pack, stretches- all with little relief. PMH: lymphedema, hypothyroidism, obesity Chief Complaint Pain,Swelling Symptom Type Ache,Throb,Burning,Numbness, Tingling Symptoms Relieved By Rest/Positioning,Heat,OTC Meds Symptoms Aggravated By Sitting,Standing,Bending/ Stooping,Physical Activity, Twisting,Walking,Lifting Prior Functional Limitations None Current Functional Limitations Reaching,Lifting,Dressing, Driving,Sleeping,Standing, Sitting,Squatting,Recreation Activity,Walking,Stairs, Balance,Bending/Stooping Symptom Description Constant but Variable Level of pain today (0-10) 5
== END 2022-09-11 09:05 | disposition home or self-care (01) ==
LOC: PT 09:00
PROVIDERS: PCP Family Medicine; Visit Provider Nurse Practitioner Family
DX: M79.671 Pain in right foot (principal); M77.41 Metatarsalgia, right foot; M79.672 Pain in left foot; M77.42 Metatarsalgia, left foot
CPT/HCPCS: 97010; 97014; 97110; 97163; G0283

== ENCOUNTER → 2022-09-27 11:14 | Outpatient (CLI) | payer MEDICAID, SELFPAY ==
--- NOTE | 2022-09-27 11:21 | XR_ITS ---
FINAL REPORT CLINICAL HISTORY: Lymphedema, Lt leg numbness/tingling COMPARISON: None FINDINGS: No fracture is identified. Minimal endplate spurring. Mild facet arthropathy. Alignment is normal. IMPRESSION: No acute process. Reviewed, Interpreted and Dictated by Shubham Garcia MD Transcribed by Meredith Medina Authenticated and [facility]
== END ==
PROVIDERS: PCP Family Medicine; Visit Provider Nurse Practitioner Family
DX: R20.2 Paresthesia of skin (principal)
CPT/HCPCS: 72100

== ENCOUNTER 2022-10-04 10:00 | Outpatient (RCR) | payer MEDICAID, SELFPAY ==
--- NOTE | 2022-06-27 12:40 | HMH.PTOPWND ---
Rehab Outpt Wound Evaluation Rehab OP Wound Evaluation Start: 06/27/22 11:50 Freq: Status: Active Protocol: Document 06/27/22 12:30 PHORNE (Rec: 06/27/22 12:39 PHORNE [id number]) E-signed By Rasheed Smiley, PT Subjective/History History History This is the initial PT eval for Natacha Dickson 36 yowf who presents with c/o B LE edema x ~ 2 mos with insidious onset of symptoms, L LE worse than R LE. She reports US showed no evidence of DVT in B LE. She c /o increased pain with increased edema, tenderness to palpation, and intermittent tingling, worse in the L LE. She reports hx of CCY, hypothyroid, prior L LE cellulitis, and prior partial tear of L ACL and MCL. Subjective Subjective Currently pain is 6/10, at worst 9/10. No pitting edema noted, but fibrotic susan to B lower legs noted with palpation. Possible Lipidema component, but difficult to assess at this time. Moderate blanchable erythema noted to B lower legs. 2/4 TTP noted in B lower legs. Lymphedema Eval Classification of Lymphedema Secondary Lymphedema Yes Stemmer's sign Stemmer's Sign no Stage of Lymphedema Lymphedema stages Stage II (Pitting edema, increased fibrosis w/ decreased pitting) Skin Changes Dry Skin Yes Skin Folds Yes Redness Yes Discoloration of Skin Yes Other Changes Yes Pain Scale Pain Scale (0-10) 9 Affected Extremities Areas Affected by Lymphedema/Edema Right Lower Extremity,Left Lower Extremity Manual Lymphatic Drainage Treatment Area MLD Treatment Area Right Lower Extremity,Left Lower Extremity Wound Problems/Impairments Impairments Problems/Impairmments Palpation Tenderness,Impaired Endurance,Impaired Standing, Impaired Sitting,Impaired Household Care,Impaired Recreational Activities,
--- NOTE | 2022-07-25 14:50 | HMH.RHREAS ---
Rehab Reassessment Rehab OP Re-assessment Start: 07/25/22 14:39 Freq: Status: Active Protocol: Document 07/25/22 14:44 JAVAN (Rec: 07/25/22 14:50 PHOMOHINDER [id number]) E-signed By Rasheed Smiley, PT Rehab Re-assessment Subjective Subjective Pt reports 8/10 pain this date in L lateral lower leg. It feels like somebody is putting hot coals on my leg. Objective Objective Notes Circumferential measurements: R LE total is 252.6 cm which is -8.7 cm since IE L LE total is 266.0 cm which is +2.0 cm since IE TTP: 03/07 noted to B lower legs . Assessment Progress Assessment Slower Than Expected Assessment Notes Pt has shown significant edema reduction in the R LE, but no progress in the L LE as of yet. She also continues to c/o severe pain in the L LE, as well. She continues to have difficulty with tar heat exchanger cleaner and transfers due to edema and pain. She continues to need skilled interventions to return to prior level of function. Patient goals met ST,[address],3,5 LT,2,3,4,5,6 ,7 Revised Goals none Plan Plan Continue per initial POC Frequency of Therapy 2 x/wk Duration of therapy 4 wks Time and Billing Re-Eval Time 15 Re-Eval Billing Units 1 PHYSICIAN CERTIFICATION: I certify the specified therapy services for Natacha Dickson are required, authorized, and reviewed every 30 days.
--- NOTE | 2022-08-23 11:41 | HMH.RHREAS ---
Rehab Reassessment Rehab OP Re-assessment Start: 07/25/22 14:39 Freq: Status: Active Protocol: Document 08/23/22 11:37 DEANTezFAMILIA (Rec: 08/23/22 11:41 PHOMOHINDER [id number]) E-signed By Rasheed Smiley, PT Rehab Re-assessment Subjective Subjective Pt reports, My right leg feels really good, but my left leg still hurts most of the time. Pain in L LE 08/11 this am. Objective Objective Notes Circumferential measurements: R LE total is 243.9 cm which is -17.4 cm since IE L LE total is 258.6 cm which is -5.4 cm since IE TTP: 03/07 noted to L lower leg. Assessment Progress Assessment Progressing as Expected Assessment Notes Pt has shown significant reduction in B LE edema overall, with R much more so than L. She continues to have quite a bit of pain, but only in the L LE now. She continues to have difficulty with standing activity at home due to the L LE edema and pain. She continues to need skilled intervention to return to prior level of function. Patient goals met ST,2,3,4,5 Goals Not Met LT,2,3,4,5,6,7 Revised Goals none Plan Plan Continue per initial POC Frequency of Therapy 2 x/wk Duration of therapy 4 wks Time and Billing Re-Eval Time 16 Re-Eval Billing Units 1 PHYSICIAN CERTIFICATION: I certify the specified therapy services for Natacha Dickson are required, authorized, and reviewed every 30 days.
== END 2022-10-04 11:00 | disposition home or self-care (01) ==
LOC: PT 10:00
PROVIDERS: PCP Family Medicine; Visit Provider Internal Medicine Adolescent Medicine
DX: I89.0 Lymphedema, not elsewhere classified (principal)
CPT/HCPCS: 97140; 97162; 97164

== ENCOUNTER → 2022-11-15 23:33 | Outpatient (CLI) | payer MEDICAID, SELFPAY | PROVIDERS: PCP Family Medicine; Visit Provider Family Medicine | DX: E03.9 Hypothyroidism, unspecified (principal) | CPT/HCPCS: 84443 ==

== ENCOUNTER → 2023-02-01 08:38 | Outpatient (CLI) | payer MEDICAID, SELFPAY ==
[2023-02-01 17:06] LABS: Thyroid Stimulating Hormone 7.23 uIU/mL (0.465-4.68)
== END ==
PROVIDERS: PCP Family Medicine; Visit Provider Nurse Practitioner Family
DX: E03.9 Hypothyroidism, unspecified (principal)
CPT/HCPCS: 84443

== ENCOUNTER 2023-04-29 16:26 | Outpatient (CLI) | payer MEDICAID, SELFPAY | END 2023-04-29 23:59 | LOC: LAB.DROPOF 16:26 | PROVIDERS: PCP Nurse Practitioner Family; Visit Provider Nurse Practitioner Family | DX: J02.9 Acute pharyngitis, unspecified (principal) | CPT/HCPCS: 87070 ==

== ENCOUNTER 2023-05-06 16:48 | Outpatient (CLI) | payer MEDICAID, SELFPAY ==
[2023-05-06 16:33] LABS: Alanine Aminotransferase 20 U/L (12-78); Albumin Level 4.1 g/dl (3.5-5.0); Albumin/Globulin Ratio 1.4 (1.1-1.8); Alkaline Phosphatase 139 U/L (38-126); Anion Gap 10.4 mEq/L (5-15); Aspartate Amino Transferase 24 U/L (14-36); Bilirubin,Total 0.6 mg/dl (0.2-1.3); Blood Urea Nitrogen 10 mg/dl (7-17); Carbon Dioxide 28 mmol/L (22.0-30.0); Chloride 104 mmol/L (98-107); Chol/HDL Ratio 6.1 (1-3.5); Cholesterol 218 mg/dl (140-200); Estimated Glomerular Filt Rate 94 ml/min (>60); GFR (African American) 113 ML/MIN (>60); Glucose 101 mg/dl (74-100); HDL Cholesterol 36 mg/dl (40-60); Potassium 4.4 mmoL/L (3.5-5.1); Sodium 138 mmol/L (136-145); Total Protein,Serum 7.1 g/dl (6.3-8.2); Triglycerides 156 mg/dl (30-150); VLDL Cholesterol 31 mg/dL (0-40)
[2023-05-06 16:36] LABS: Basophils # 0.1 K/mm3 (0-0.2); Basophils % 0.7 % (0.1-2.0); Eosinophils # 0.2 K/mm3 (0.0-0.4); Eosinophils % 2.6 % (0.1-12.0); Hemoglobin 12.2 g/dL (12.2-16.2); Lymphocytes % 23.9 % (10-50); Mean Corpuscular HGB Conc 31.4 g/dL (31.8-35.4); Mean Corpuscular Hemoglobin 30.1 pg (27.0-31.2); Mean Corpuscular Volume 95.9 fl (81-99); Mean Platelet Volume 10.3 fl (7.4-10.4); Monocytes # 0.5 K/mm3 (0.1-1.0); Monocytes % 5.3 % (1.7-9.3); Neutrophils # 5.8 K/mm3 (1.8-7.8); Neutrophils % 67.6 % (37.0-80.0); Platelet Count 285 K/mm3 (142-424); Red Blood Count 4.06 M/mm3 (4.20-5.40); Red Cell Distribution Width 14.1 % (11.5-17.5); White Blood Count 8.6 K/mm3 (4.8-10.8)
[2023-05-06 16:44] LABS: Direct LDL Cholesterol 124.12 mg/dL (100-129)
[2023-05-06 17:04] LABS: Thyroid Stimulating Hormone 8.46 uIU/mL (0.465-4.68)
[2023-05-06 17:52] LABS: Hemoglobin A1C 5.4 % (4.0-6.0)
[2023-05-06 17:54] LABS: 25-OH Vitamin D, Total < 12.8 ng/mL (30-100)
== END 2023-05-06 23:59 ==
LOC: LAB.DROPOF 16:48
PROVIDERS: PCP Nurse Practitioner Family; Visit Provider Nurse Practitioner Family
DX: E03.9 Hypothyroidism, unspecified (principal); E55.9 Vitamin D deficiency, unspecified; Z68.44 Body mass index [BMI] 60.0-69.9, adult
CPT/HCPCS: 80053; 80061; 82306; 83036; 84443; 85025

== ENCOUNTER 2023-08-06 13:28 | Outpatient (CLI) | payer MEDICAID, SELFPAY ==
[2023-08-06 16:33] LABS: Basophils # 0.1 K/mm3 (0-0.2); Basophils % 0.8 % (0.1-2.0); Eosinophils # 0.4 K/mm3 (0.0-0.4); Eosinophils % 4.1 % (0.1-12.0); Hematocrit 38.6 % (37.0-47.0); Hemoglobin 12.4 g/dL (12.2-16.2); Lymphocytes # 2.2 K/mm3 (0.7-4.5); Lymphocytes % 24.2 % (10-50); Mean Corpuscular HGB Conc 32.1 g/dL (31.8-35.4); Mean Corpuscular Hemoglobin 29.6 pg (27.0-31.2); Mean Corpuscular Volume 92.4 fl (81-99); Mean Platelet Volume 10.4 fl (7.4-10.4); Monocytes # 0.4 K/mm3 (0.1-1.0); Monocytes % 4.7 % (1.7-9.3); Neutrophils # 6.1 K/mm3 (1.8-7.8); Neutrophils % 66.2 % (37.0-80.0); Platelet Count 266 K/mm3 (142-424); Red Blood Count 4.18 M/mm3 (4.20-5.40); Red Cell Distribution Width 14.9 % (11.5-17.5); White Blood Count 9.1 K/mm3 (4.8-10.8)
[2023-08-06 16:41] LABS: Alanine Aminotransferase 23 U/L (12-78); Albumin Level 3.9 g/dl (3.5-5.0); Albumin/Globulin Ratio 1.2 (1.1-1.8); Alkaline Phosphatase 126 U/L (38-126); Anion Gap 11.5 mEq/L (5-15); Aspartate Amino Transferase 25 U/L (14-36); Bilirubin,Total 0.7 mg/dl (0.2-1.3); Blood Urea Nitrogen 9 mg/dl (7-17); Calcium 9.6 mg/dl (8.4-10.2); Carbon Dioxide 29 mmol/L (22.0-30.0); Chloride 101 mmol/L (98-107); Estimated Glomerular Filt Rate 111 ml/min (>60); GFR (African American) 135 ML/MIN (>60); Globulin 3.3 g/dL (1.3-3.2); Glucose 103 mg/dl (74-100); Magnesium 1.7 mg/dl (1.6-2.3); Potassium 4.5 mmoL/L (3.5-5.1); Sodium 137 mmol/L (136-145); Total Protein,Serum 7.2 g/dl (6.3-8.2)
[2023-08-06 16:59] LABS: 25-OH Vitamin D, Total 23.5 ng/mL (30-100); Free Thyroxine Index 3.2 ug/dL (5.93-13.13); T4 (Thyroxine) 12.3 ug/dl (5.53-11.0); Triiodothryronine (T3) Uptake 26 % (23.5-40.5)
[2023-08-06 17:12] LABS: Thyroid Stimulating Hormone 7.02 uIU/mL (0.465-4.68)
== END 2023-08-06 23:59 | disposition home or self-care (01) ==
LOC: LAB.DROPOF 08-07 13:29
PROVIDERS: PCP Nurse Practitioner Family; Visit Provider Nurse Practitioner Family
DX: E03.9 Hypothyroidism, unspecified (principal); E55.9 Vitamin D deficiency, unspecified; Z68.45 Body mass index [BMI] 70 or greater, adult; R25.2 Cramp and spasm
CPT/HCPCS: 80050; 80053; 82306; 83735; 84436; 84443; 84479; 85025

== ENCOUNTER 2023-11-12 16:55 | Outpatient (CLI) | payer MEDICAID, SELFPAY ==
[2023-11-12 17:36] LABS: Alanine Aminotransferase 23 U/L (12-78); Albumin Level 3.9 g/dl (3.5-5.0); Albumin/Globulin Ratio 1.2 (1.1-1.8); Alkaline Phosphatase 108 U/L (38-126); Anion Gap 9.6 mEq/L (5-15); Aspartate Amino Transferase 26 U/L (14-36); Bilirubin,Total 0.8 mg/dl (0.2-1.3); Blood Urea Nitrogen 6 mg/dl (7-17); Calcium 9.3 mg/dl (8.4-10.2); Carbon Dioxide 30 mmol/L (22.0-30.0); Chloride 101 mmol/L (98-107); Estimated Glomerular Filt Rate 137 ml/min (>60); GFR (African American) 166 ML/MIN (>60); Globulin 3.3 g/dL (1.3-3.2); Glucose 77 mg/dl (74-100); Potassium 4.6 mmoL/L (3.5-5.1); Sodium 136 mmol/L (136-145); Total Protein,Serum 7.2 g/dl (6.3-8.2)
[2023-11-12 17:50] LABS: Free Thyroxine Index 5.1 ug/dL (5.93-13.13); T4 (Thyroxine) 15.8 ug/dl (5.53-11.0); Triiodothryronine (T3) Uptake 32 % (23.5-40.5)
[2023-11-12 18:03] LABS: Thyroid Stimulating Hormone < 0.02 uIU/mL (0.465-4.68)
[2023-11-12 22:14] LABS: 25-OH Vitamin D, Total 39.6 ng/mL (30-100)
[2023-11-13 08:56] LABS: HIV (1&2) Antibody Rapid NONREACTIVE (NONREACTIVE)
[2023-11-14 11:18] LABS: HCV Ab Non Reactive (Non Reactive)
[2023-11-14 17:10] LABS: Thyroglobulin Level 633.9 IU/mL (0.0-0.9)
== END 2023-11-12 23:59 | disposition home or self-care (01) ==
LOC: LAB.DROPOF 16:55
PROVIDERS: PCP Nurse Practitioner Family; Visit Provider Nurse Practitioner Family
DX: E03.9 Hypothyroidism, unspecified (principal); E55.9 Vitamin D deficiency, unspecified; Z11.59 Encounter for screening for other viral diseases; Z11.4 Encounter for screening for human immunodeficiency virus [HIV]
CPT/HCPCS: 80053; 82306; 84436; 84443; 84479; 86800; 86803; 87389

== ENCOUNTER 2023-11-20 10:30 | Outpatient (CLI) | payer MEDICAID, SELFPAY ==
--- NOTE | 2023-11-20 10:31 | US_ITS ---
FINAL REPORT TECHNIQUE: Real-time grayscale and color ultrasound of the thyroid was performed. CLINICAL HISTORY: elevated thyroglobulin COMPARISON: None FINDINGS: The thyroid gland measures 37 x 11 x 12 mm on the right and 38 x 13 x 12 mm on the left. The isthmus measures 5 mm. The parenchyma is heterogeneous, probably due to diffuse goiter.. Nodules: Scattered macro calcifications are noted, not associated with a specific mass. IMPRESSION: Heterogeneous thyroid gland probably due to diffuse goiter, without suspicious mass or nodule. Reviewed, Interpreted and Dictated by William Bauman MD Transcribed by Meredith Medina Authenticated and . [facility]
== END 2023-11-20 23:59 | disposition home or self-care (01) ==
LOC: RAD 10:31
PROVIDERS: PCP Family Medicine; Visit Provider Family Medicine
DX: E03.9 Hypothyroidism, unspecified (principal)
CPT/HCPCS: 76536

== ENCOUNTER 2023-12-12 15:27 | Emergency (ER) | payer MEDICAID, SELFPAY ==
[2023-12-12 15:28] VITALS: BP 171/103; PULSE 83; RESP 20; TEMP 36.9; O2SAT 99; BMI 60.5
--- NOTE | 2023-12-12 15:30 | ED_ITS ---
Discharge Plan Disposition Patient Disposition: Home, Self-Care Condition: Good Prescriptions Prescriptions: No Action methocarbamol 750 mg tablet 1,500 mg PO TID Qty: 180 1RF meloxicam 15 mg tablet 15 mg PO DAILY Qty: 90 1RF lisinopril 10 mg tablet See Rx Instructions .ROUTE .COMPLEX Qty: 90 3RF Dose Instruction: TAKE 1 TABLET BY MOUTH ONCE DAILY Rx Instructions: TAKE 1 TABLET BY MOUTH ONCE DAILY levothyroxine 50 mcg tablet 50 mcg PO DAILY Qty: 30 3RF levothyroxine 200 mcg tablet 200 mcg PO DAILY Qty: 30 2RF cholecalciferol (vitamin D3) 1,250 mcg (50,000 unit) capsule 1,250 mcg PO WEEKLY Qty: 5 3RF amitriptyline 10 mg tablet 10 mg PO TID Qty: 90 2RF cetirizine 10 mg tablet See Rx Instructions .ROUTE .COMPLEX Qty: 30 2RF Dose Instruction: TAKE 1 TABLET BY MOUTH EVERY DAY Rx Instructions: TAKE 1 TABLET BY MOUTH EVERY DAY Referrals Follow up/Referrals: Sourav Ambrocio MD [Primary Care Provider] - See instructions Activity Restrictions/Add. Instructions Additional Instructions/Restrictions: You may use ice compression and Tylenol as needed I would advise against ibuprofen and Naprosyn due to the fact that it may make the hematoma worse in the short-term. Follow-up with your PCP for no improvement or worsening symptoms or return to ER as needed Clinical Impressions Clinical Impression: Hematoma of right hand Instructions Patient Instructions: DI for Hematoma (Bruise) Print Language Print Language: Maltese Discharge ED Provider: Florentin Jackson General Adult HPI <VAHID Braajas - Last Filed: 12/12/23 16:00> General Chief complaint: Extremity Injury, Upper Stated complaint: AO12/10 Rt hand inj Time Seen by Provider: 12/12/23 15:30 History of Present Illness HPI narrative: Patient presents for right hand injury. Patient struck the dorsum of her right hand against a TV stand while playing with her daughter. This morning she woke up and noticed that she had a significant bruise. Over the same area. Patient reports that causes burning when she attempts to move her hand but she is able to move her hand. She has no numbness no tingling. Related Data Previous Rx's ?Medication ?Instructions ?Recorded lisinopril 10 mg tablet See Rx Instructions .Route 11/13/22 .COMPLEX #90 tabs levothyroxine 50 mcg tablet 50 mcg PO DAILY #30 tabs 08/08/23 levothyroxine 200 mcg tablet 200 mcg PO DAILY #30 tabs 09/10/23 cholecalciferol (vitamin D3) 1,250 1,250 mcg PO WEEKLY #5 caps 10/28/23 mcg (50,000 unit) capsule amitriptyline 10 mg tablet 10 mg PO TID #90 tabs 10/31/23 cetirizine 10 mg tablet See Rx Instructions .Route 10/31/23 .COMPLEX #30 tabs meloxicam 15 mg tablet 15 mg PO DAILY #90 tabs 11/12/23 methocarbamol 750 mg tablet 1,500 mg (2 x 750 mg) PO TID #180 11/12/23 tabs Allergies Allergy/AdvReac Type Severity Reaction Status Date / Time hydrocodone [From Lortab] Allergy Verified 11/12/23 09:35 latex Allergy Verified 11/12/23 09:35 Sulfa (Sulfonamide Allergy Verified 11/12/23 09:35 Antibiotics) [facility] <VAHID Barajas - Last Filed: 12/12/23 16:00> [facility] Disclaimer: The information contained in this section may have been updated after the vahid jane was seen, as this information can be updated by other users. Medical History Hypertension Callus of foot Nausea Calcaneal spur of left foot Metatarsalgia of both feet Forearm sprain Otitis media Sinusitis Surgical History Previous section H/O tubal ligation History of cholecystectomy Family History Grandmother Cancer Coronary artery disease Kidney disease Grandfather Coronary artery disease Father Coronary artery disease Diabetes Heart attack Hypertension Kidney disease Mother Diabetes Stroke Social History Smoking Status: Never smoker alcohol intake: never substance use type: denies use current occupational status: unemployed Travel in the last 8 weeks: None household members: family and children housing: house Other Medical History Have you received the Flu Vaccine for this season: No Have you received the Pneumonia Vaccine: No <VAHID Barajas - Last Filed: 12/12/23 16:00> ROS Obtained: Yes Systems reviewed as appropriate & no additional complaints except as documented Physical Exam <VAHID Barajas - Last Filed: 12/12/23 16:00> General General appearance: alert and in no apparent distress Respiratory Respiratory exam: Present normal lung sounds bilaterally Cardiovascular Cardiovascular exam: Present regular rate and normal rhythm Neurological Exam Neurological exam: Present alert and oriented X3 Medical Decision Making <VAHID Barajas - Last Filed: 12/12/23 16:00> Medical Records Screening: Per USPSTF and CDC recommendations, given the prevalence of disease in our region, it is our hospital?s policy to screen for HIV and viral Hepatitis for all patients aged 18 and over and those with ongoing risk factors. Donal Inquiry Pt receiving controlled substance: No Vital Signs: 12/12/23 15:28 12/12/23 16:08 Temperature 98.5 F 70 F L Temperature Source Oral Pulse Rate 80 Pulse Rate [Right Radial] 83 Respiratory Rate 20 20 Blood Pressure 158/79 H Blood Pressure [Right Arm] 171/103 H Blood Pressure Mean [Right Arm] 125 02 Sat by Pulse Oximetry 99 Oxygen Delivery Method Room Air Room Air Orders (Tests/Meds): ED MEDICATIONS Discontinued Medications Generic Name Dose Route Start Last Admin Trade Name Mason PRN Reason Stop Dose Admin Acetaminophen 1,000 mg 12/12/23 15:34 12/12/23 15:43 Acetaminophen 500mg Tab PO 12/12/23 15:35 1,000 mg ONCE ONE Administration ORDERS Category Date Time Status Hand XR right minimum 3 views [XR hand RT min 3V] Stat Exams 12/12/23 15:34 Completed Medical Decision Narrative: In summary patient is a 38-year-old female who presents to the emergency department for evaluation of right hand injury. Patient is hemodynamically stable upon arrival, afebrile. Physical exam is remarkable for hematoma over the fourth and fifth metacarpals on the dorsum of her right hand. There is no bony deformity noted. It is tender to palpation dorsally but not on the palmar surface. She is neurovascular intact distally.. Differential diagnosis includes hematoma versus fracture. Initial workup will be conducted with plain film x- rays. Initial interventions include Tylenol. Initial workup reviewed by me and my informal interpretation of her plain film x-ray shows no evidence of acute fracture. Upon repeat evaluation modest improvement of her discomfort after initial intervention. Given this patient is appropriate for discharge with follow-up with with her PCP for any worsening or not improving symptoms or return to ER as needed. <Florentin Jackson MD - Last Filed: 12/12/23 19:23> Vital Signs: 12/12/23 15:28 12/12/23 16:08 Temperature 98.5 F 70 F L Temperature Source Oral Pulse Rate 80 Pulse Rate [Right Radial] 83 Respiratory Rate 20 20 Blood Pressure 158/79 H Blood Pressure [Right Arm] 171/103 H Blood Pressure Mean [Right Arm] 125 02 Sat by Pulse Oximetry 99 Oxygen Delivery Method Room Air Room Air Orders (Tests/Meds): ED MEDICATIONS Discontinued Medications Generic Name Dose Route Start Last Admin Trade Name Freq PRN Reason Stop Dose Admin Acetaminophen 1,000 mg 12/12/23 15:34 12/12/23 15:43 Acetaminophen 500mg Tab PO 12/12/23 15:35 1,000 mg ONCE ONE Administration ORDERS Category Date Time Status Hand XR right minimum 3 views [XR hand RT min 3V] Stat Exams 12/12/23 15:34 Completed Medical Decision Narrative: In summary patient is a 38-year-old female who presents to the emergency department for evaluation of right hand injury. Patient is hemodynamically stable upon arrival, afebrile. Physical exam is remarkable for hematoma over the fourth and fifth metacarpals on the dorsum of her right hand. There is no bony deformity noted. It is tender to palpation dorsally but not on the palmar surface. She is neurovascular intact distally.. Differential diagnosis includes hematoma versus fracture. Initial workup will be conducted with plain film x- rays. Initial interventions include Tylenol. Initial workup reviewed by me and my informal interpretation of her plain film x-ray shows no evidence of acute fracture. Upon repeat evaluation modest improvement of her discomfort after initial intervention. Given this patient is appropriate for discharge with follow-up with with her PCP for any worsening or not improving symptoms or return to ER as needed. I, Florentin Arredondo MD, was present at the time of evaluation and agree with the plan and workup as mentioned above. Critical Care <VAHID Barajas - Last Filed: 12/12/23 16:00> Critical Care Time Critical Care Time: No
--- NOTE | 2023-12-12 15:34 | XR_ITS ---
FINAL REPORT CLINICAL HISTORY: Trauma to the dorsum of the right hand FINDINGS: RIGHT HAND Three views demonstrate no acute fracture or dislocation. The visualized joint spaces are normally aligned. There is dorsal hand soft tissue swelling. IMPRESSION: Soft tissue swelling with no acute bony abnormality. Reviewed, Interpreted and Dictated by Ronaldo Yepez III, MD Transcribed by Judith Encarnacion Authenticated and . [facility]
[2023-12-12] MEDS: ACETAMINOPHEN 500MG TAB 1000 MG PO (15:43)
[2023-12-12 16:08] VITALS: BP 158/79; PULSE 80; RESP 20; TEMP 21.1; O2SAT 97
== END 2023-12-12 16:08 | disposition home or self-care (01) ==
PROVIDERS: Emergency Provider Student in an Organized Health Care Education/Training Program; PCP Family Medicine
DX: S60.221A Contusion of right hand, initial encounter (principal); M79.641 Pain in right hand; W22.8XXA Striking against or struck by other objects, initial encounter; Y93.89 Activity, other specified; Y92.009 Unspecified place in unspecified non-institutional (private) residence as the place of occurrence of the external cause
CPT/HCPCS: 73130; 99283

== ENCOUNTER 2024-01-02 10:43 | Outpatient (CLI) | payer MEDICAID, SELFPAY | END 2024-01-02 23:59 | disposition home or self-care (01) | LOC: LAB 10:44 | PROVIDERS: PCP Family Medicine; Visit Provider Physician Assistant | DX: R63.5 Abnormal weight gain (principal); Z68.45 Body mass index [BMI] 70 or greater, adult | CPT/HCPCS: 36415; 82533 ==

== ENCOUNTER 2024-03-17 09:15 | Outpatient (CLI) | payer MEDICAID, SELFPAY ==
[2024-03-17 16:49] LABS: HDL Cholesterol 40 mg/dl (40-60)
[2024-03-17 16:51] LABS: Chol/HDL Ratio 5.1 (1-3.5); Cholesterol 204 mg/dl (140-200); Triglycerides 177 mg/dl (30-150); VLDL Cholesterol 35 mg/dL (0-40)
[2024-03-17 16:59] LABS: Direct LDL Cholesterol 121.32 mg/dL (100-129)
[2024-03-17 18:26] LABS: 25-OH Vitamin D, Total 34.2 ng/mL (30-100)
== END 2024-03-17 23:59 | disposition home or self-care (01) ==
LOC: LAB.DROPOF 03-18 13:26
PROVIDERS: PCP Nurse Practitioner Family; Visit Provider Nurse Practitioner Family
DX: E55.9 Vitamin D deficiency, unspecified (principal)
CPT/HCPCS: 80061; 82306

== ENCOUNTER 2024-10-16 10:16 | Emergency (ER) | payer MEDICAID, SELFPAY ==
--- OUTSIDE RECORDS SUMMARY | 2024-10-16 10:24 | XMS_ITS | Encounter Summary ---
Author Organization [employer] ([place], [place], [place], [place]) Address [address] [place] [address] Care Team Providers Care Materials Tech Name Role Phone Unavailable Primary Care Provider Unavailabl e Encounter Details Date Type Department Care Team (Late st Contact Info) Description 05/08/[address] [facility] [place] [address] ProviderRuperto MD [address] [place] [address] Social History Tobacco Use Types Packs/Day Years Used Date Smoking Tobacco: Never Assessed Comments Unknown Sex and Gender Information Value Date Recorded Sex Assigned at Female 08/29/2021 4:28 PM CDT Legal Sex Female 4:28 PM CDT Gender Identity Female 08/29/2021 4:28 PM CDT Sexual Orientation Not on file documented as of this encounter Miscellaneous Notes * Cerner Conversion Note - Historical ProviderMD - 05/08/2020 12:42 PM SECURITY SCREENER Patient: PASCALE BOOTHE Age: 34 Years Sex: Female : 1985 Assessment/Plan 34-year-old female who underwent laparoscopic cholecystectomy yesterday for acute cholecystitis. Had a very large stone in the neck of the gallbladder. Doing well this morning. Seems to have good pain control but not up moving much yet. Noted moderate perioperative leukocytosis. She has just a bit of transaminitis and hyperbilirubinemia. I think likely the large gallstone was causing some biliary compression which should be resolving. Okay to discharge from my standpoint when she feels ready. We discussed discharge instructions today. Okay to shower when home. Regular diet as tolerated. Avoid heavy lifting more than 10 pounds. We will plan for short follow-up this week. If any clinical concerns for ongoing biliary obstruction will repeat labs. Otherwise if she remains in house we will check CMP tomorrow. VTE Prophylaxis - Medical Heparin 5,000 Units, SubCutaneous, Inj, Q8H, Routine, Start 05/07/20 14:00:00 EST, 05/07/20 11:02:00 EST (BLADIMIR YI) Subjective No events. Moderate pain control. Tolerating liquids. Vital Signs T: 36.5 ??C TMIN: 36.4 ??C TMAX: 36.9 ??C HR: 81 RR: 17 BP: 116/68 SpO2: 94% Oxygen Settings (Last) Oxygen Therapy Mode: Room air (05/08/20 11:07:00) Oxygen Flow Rate: 2 Liter/Min (05/07/20 20:19:00) Intake & Output Totals Last 24 Hours (7a-7a) Input Total: 1223.6 mL Output Total: 0 mL Balance: 1223.6 mL Physical Exam Comfortable in bed, regular rate and rhythm, normal work of breathing, abdomen soft, appropriately tender, laparoscopic incision sites without erythema. Medications Dilaudid, 0.5 mg= 0.5 mL, IV Push, Q2H, PRN DuoNeb 0.5 mg-2.5 mg/3 mL inhalation solution, 3 mL, Nebulized Inhalation , RT_Q6H, PRN heparin, 5000 Units= 1 mL, SubCutaneous, Q8H hydrALAZINE, 10 mg= 0.5 mL, IV Push, Q6H, PRN Pravachol, 20 mg= 1 Tab, Oral, At Bedtime propranolol, 40 mg= 2 Tab, Oral, Daily Roxicodone, 10 mg= 2 Tab, Oral, Q4H, PRN Sodium Chloride 0.9% intravenous solution 1,000 mL, 1000 mL, IntraVENous Synthroid, 175 mcg= 1 Tab, Oral, Daily Tylenol, 650 mg= 2 Tab, Oral, Q4H, PRN Zofran, 4 mg= 2 mL, IV Push, Q4H, PRN Zoloft, 100 mg= 1 Tab, Oral, Daily Zosyn + Sodium Chloride 0.9% intravenous solution 100 mL Lab Results Test Name Test Result Date/Time Sodium Level 137 mmol/L 05/08/2020 06:11 EST Potassium Level 4.1 mmol/L 05/08/2020 06:11 EST Chloride Level 104 mmol/L 05/08/2020 06:11 EST Carbon Dioxide Level 29 mmol/L 05/08/2020 06:11 EST Anion Gap 8 (Low) 05/08/2020 06:11 EST Glucose Level 115 mg/dL (High) 05/08/2020 06:11 EST Blood Urea Nitrogen 7 mg/dL 05/08/2020 06:11 EST Creatinine Level 0.80 mg/dL 05/08/2020 06:11 EST eGFR >60 mL/min/1.73m2 05/08/2020 06:11 EST eGFR NonAfrican >60 mL/min/1.73m2 05/08/2020 06:11 EST Bun/Creatinine 8.8 05/08/2020 06:11 EST Calcium Level 8.8 mg/dL 05/08/2020 06:11 EST Protein Total 7.2 Gram/dL 05/08/2020 06:11 EST Albumin Level 3.3 Gram/dL (Low) 05/08/2020 06:11 EST Globulin 3.9 Gram/dL 05/08/2020 06:11 EST A/G Ratio 0.8 (Low) 05/08/2020 06:11 EST Bilirubin Total 1.4 mg/dL (High) 05/08/2020 06:11 EST Alk Phos 113 Units/Liter 05/08/2020 06:11 EST AST 110 Units/Liter (High) 05/08/2020 06:11 EST ALT 104 Units/Liter (High) 05/08/2020 06:11 EST WBC 14.8 K/uL (High) 05/08/2020 06:11 EST RBC 4.17 Million/uL 05/08/2020 06:11 EST Hgb 12.3 g/dL 05/08/2020 06:11 EST Hct 39.0 % 05/08/2020 06:11 EST MCV 93.5 fL 05/08/2020 06:11 EST MCH 29.5 pg 05/08/2020 06:11 EST MCHC 31.5 Gram/dL (Low) 05/08/2020 06:11 EST Platelet Count 282 K/uL 05/08/2020 06:11 EST MPV 11.5 fL 05/08/2020 06:11 EST RDW 13.4 % 05/08/2020 06:11 EST Neut % 84.8 % (High) 05/08/2020 06:11 EST Neut # 12.59 K/uL (High) 05/08/2020 06:11 EST Lymph % 10.6 % (Low) 05/08/2020 06:11 EST Lymph # 1.57 x10(3)/uL 05/08/2020 06:11 EST [place] % 3.6 % 05/08/2020 06:11 EST [place] # 0.53 K/uL 05/08/2020 06:11 EST Eos % 0.0 % 05/08/2020 06:11 EST Eos # 0.00 x10(3)/uL 05/08/2020 06:11 EST Baso % 0.2 % 05/08/2020 06:11 EST Baso # 0.03 x10(3)/uL 05/08/2020 06:11 EST Slide Review No 05/08/2020 06:11 EST IG# 0.12 x10(3)/uL (High) 05/08/2020 06:11 EST IG% 0.80 % (High) 05/08/2020 06:11 EST Electronically signed by [facility], [facility] Conversion Primary Care Nurse Practitioner Cerner at 06/20/2022 6:29 PM CDT documented in this encounter Plan of Treatment Not on file documented as of this encounter Visit Diagnoses Not on filedocumented in this encounter
--- OUTSIDE RECORDS SUMMARY | 2024-10-16 10:24 | XMS_ITS | Encounter Summary ---
Author Organization [employer] ([place], [place], [place], [place]) Address [address] [place] [address] Care Team Providers Care Emulsification Operator Name Role Phone Unavailable Primary Care Provider Unavailabl e Encounter Details Date Type Department Care Team (Late st Contact Info) Description 05/08/2020 Transcribed Document [facility] [place] [facility] [place] [address] ProviderRuperto MD [address] [place] [address] Social History Tobacco Use Types [...] Conversion Note - Historical ProviderMD - 05/08/2020 4:07 PM LOGISTICS LOSS PREVENTION MANAGER UM Authorization Entered On: 05/08/2020 16:07 EST Performed On: 05/08/2020 16:07 EST by DEL HARRISON Rn-Utilization Review Primary Insurance Authorization Authorization and Policy Numbers : Insurance 1 Health Plan: [employer] Policy Number: [id number] Authorization Number: Insurance Primary Name : [employer] Policy Number: [id number] Authorization Status-Primary : Awaiting callback Authorized Service Begin Date-Primary : 05/07/2020 EST Authorization Comments-Primary : Faxed facesheet and orders to [employer] for Inpt notification. Historical Authorization Comments-Primary : No Authorization Comments Found DEL HARRISON Rn-Utilization Review - 05/08/2020 16:07 EST Electronically signed by Jimmy [facility] Conversion Director Sales Support Cerner at 06/20/2022 6:16 PM CDT documented in this encounter Plan of Treatment Not on file documented as of this encounter Visit Diagnoses Not on filedocumented in this encounter
--- OUTSIDE RECORDS SUMMARY | 2024-10-16 10:24 | XMS_ITS | Encounter Summary ---
Author Organization [employer] ([place], [place], [place], [place]) Address [address] [place] [address] Care Team Providers Care Refrigeration Installer Name Role Phone Unavailable Primary Care Provider Unavailabl e Encounter Details Date Type Department Care Team (Late st Contact Info) Description 05/08/2020 Transcribed Document [facility] [place] [address] [place] [address] ProviderRuperto MD [address] [place] [address] Social History Tobacco Use Types [...] Conversion Note - Historical ProviderMD - 05/08/2020 2:00 AM PLASTIC MOULD MAKER Plush Brusher Details Entered On: 05/08/2020 1:41 EST Performed On: 05/08/2020 2:00 EST by Laina Greer V, RN Order Details Transport Mode Order Detail : Wheelchair Isolation Precautions Order Detail : Standard Precautions Order Detail : 1 IV Order Detail : 1 Oxygen Order Detail : 0 Nurse Collect Order Detail : 0 Lift/Transfer : Minimal Central Line Order Detail : No Room Service : Appropriate Arterial Line : No Patient Needs Meds Crushed/Liquid : No Laina Greer V, RN - 05/08/2020 1:41 EST documented in this encounter Plan of Treatment Not on file documented as of this encounter Visit Diagnoses Not on filedocumented in this encounter
--- OUTSIDE RECORDS SUMMARY | 2024-10-16 10:24 | XMS_ITS | Encounter Summary ---
Author Organization [employer] ([place], [place], [place], [place]) Address [address] [place] [address] Care Team Providers Care Vascular Nurse Name Role Phone Unavailable Primary Care Provider Unavailabl e Encounter Details Date Type Department Care Team (Late st Contact Info) Description 05/08/2020 Transcribed Document [facility] [place] [address] [place] [address] ProviderRuperto MD [address] [place] [address] Social History Tobacco Use Types [...] Conversion Note - Historical ProviderMD - 05/08/2020 5:00 AM SALES SERVICE PROFESSIONAL Chart Check - Review Order Profile Entered On: 05/08/2020 6:48 EST Performed On: 05/08/2020 5:00 EST by Laina Greer V RN Chart Check Powerplans Initiated/Discontinued as Appropriate : Yes All Active Orders Reviewed : Yes Laina Greer RN - 05/08/2020 6:48 EST documented in this encounter Plan of Treatment Not on file documented as of this encounter Visit Diagnoses Not on filedocumented in this encounter
--- OUTSIDE RECORDS SUMMARY | 2024-10-16 10:24 | XMS_ITS | Clinical Summary ---
Author Organization [employer] ([place], [place], [place], [place]) Address [address] [place] [address] Care Team Providers Care Superintendent Construction Name Role Phone Unavailable Primary Care Provider Unavailabl e Social History Tobacco Use Types Packs/Day Years Used Date Smoking Tobacco: Never Assessed Comments Unknown Sex and Gender Information Value Date Recorded Sex Assigned at Female 08/29/2021 4:28 PM CDT Legal Sex Female 4:28 PM CDT Gender Identity Female 08/29/2021 4:28 PM CDT Sexual Orientation Not on file Plan of Treatment Not on file
--- OUTSIDE RECORDS SUMMARY | 2024-10-16 10:25 | XMS_ITS | Encounter Summary ---
Author Organization [employer] ([place], [place], [place], [place]) Address [address] [place] [address] Care Team Providers Care Pm Technician Name Role Phone Unavailable Primary Care Provider Unavailabl e Encounter Details Date Type Department Care Team (Late st Contact Info) Description 05/12/2020 Transcribed Document [facility] [place] [address] [place] [address] ProviderRuperto MD [address] [place] [address] Social History Tobacco Use Types [...] Cerner Conversion Note - Historical ProviderMD - 05/12/2020 6:38 AM TURN MACHINE OPERATOR UM Authorization Entered On: 05/12/2020 6:40 EST Performed On: 05/12/2020 6:38 EST by Willow Connelly, Site Physician Primary Insurance Authorization Authorization and Policy Numbers : Insurance 1 Health Plan: [employer] Policy Number: [id number] Authorization Number: Insurance Primary Name : [employer] Policy Number: [id number] Authorization Status-Primary : No precert required Auth/Referral Contact Name-Primary : [place] Authorization Number-Primary : NPR - COVID Crisis Authorized Service Begin Date-Primary : 05/07/2020 EST Authorization Comments-Primary : Per fax 05/11/20 @ 1131. All authorization s for inpatient medical services have been suspended. Historical Authorization Comments-Primary : Comment 1: Discharge date and summary faxed. (Willow Connelly, Site Physician 05/11/2020 14:15) Comment 2: no updated information on website (Juliana Fontanez, Rn-Utilization Review 05/11/2020 10:07) Comment 3: Faxed facesheet and orders to [employer] for Inpt notification. (DEL HARRISON, Rn-Utilization Review 05/08/2020 16:07) Willow Connelly, Site Physician - 05/12/2020 6:38 EST documented in this encounter Plan of Treatment Not on file documented as of this encounter Visit Diagnoses Not on filedocumented in this encounter
--- OUTSIDE RECORDS SUMMARY | 2024-10-16 10:25 | XMS_ITS | Encounter Summary ---
Author Organization [employer] ([place], [place], [place], [place]) Address [address] [place] [address] Care Team Providers Care Television Service Engineer Name Role Phone Unavailable Primary Care Provider Unavailabl e Encounter Details Date Type Department Care Team (Late st Contact Info) Description 05/09/2020 Transcribed Document [facility] [place] [facility] [place] [address] ProviderRuperto MD [address] [place] [address] Social History Tobacco Use Types [...] Cerner Conversion Note - Historical ProviderMD - 05/09/2020 2:00 AM OB TECH Bone Char Kiln Tender Details Entered On: 05/09/2020 4:54 EST Performed On: 05/09/2020 2:00 EST by Abeba Henderson, RN Order Details Transport Mode Order Detail : Wheelchair Isolation Precautions Order Detail : Standard Precautions Order Detail : 1 IV Order Detail : 1 Oxygen Order Detail : 0 Nurse Collect Order Detail : 0 Lift/Transfer : Minimal Central Line Order Detail : No Room Service : Appropriate Arterial Line : No Patient Needs Meds Crushed/Liquid : No Abeba Henderson, RN - 05/09/2020 4:54 EST documented in this encounter Plan of Treatment Not on file documented as of this encounter Visit Diagnoses Not on filedocumented in this encounter
--- OUTSIDE RECORDS SUMMARY | 2024-10-16 10:25 | XMS_ITS | Encounter Summary ---
Author Organization [employer] ([place], [place], [place], [place]) Address [address] [place] [address] Care Team Providers Care Human Resources Admin Name Role Phone Unavailable Primary Care Provider Unavailabl e Encounter Details Date Type Department Care Team (Late st Contact Info) Description 05/07/2020 Transcribed Document [facility] [place] Family Medicine [place] [address] ProviderRuperto MD [place] [address] Social History Tobacco Use Types Packs/Day Years Used Date Smoking Tobacco: Never Assessed Comments Unknown Sex and Gender Information Value Date Recorded Sex Assigned at Female 08/29/2021 4:28 PM CDT Legal Sex Female 4:28 PM CDT Gender Identity Female 08/29/2021 4:28 PM CDT Sexual Orientation Not on file documented as of this encounter Miscellaneous Notes * [employer]ner Conversion Note - Historical Provider, - 05/07/2020 8:28 AM INTERNATIONAL FLIGHT ATTENDANT Admission History, Adult Entered On: 05/07/2020 9:37 EST Performed On: 05/07/2020 8:28 EST by Levar Luna RN Advance Directive Patient has Advance Directive *Q : No, patient refuses Advance Directive information Levar Luna RN - 05/07/2020 9:28 EST Anesthesia/Transfusion History Family History of Anesthesia Reaction : No prior transfusion(s) Transfusion History : Prior anesthesia without reaction Family History of Anesthesia Reaction : None Levar Luna RN - 05/07/2020 9:28 EST Functional Assessment Living Situation : Home Persons Assisting Patient at Home : Child/Children, Parent(s) Current Home Treatments : None Levar Luna RN - 05/07/2020 9:28 EST General Info Want Family/Rep/Phys Notified of Admit : No Emergency Contact #1 : day killian Emergency Contact #1 Phone Number : [phone] Emergency Contact #1 Relationship : mother Emergency Contact #2 : na Emergency Contact #2 Phone Number : na Emergency Contact #2 Relationship : na Information Obtained From : Patient Primary Language : Nigerian Communication Barrier : None Supervisor Inspection Needed : No Levar Luna RN - 05/07/2020 9:28 EST Fall Risk Scales ABCs Fall Injury Risk Identification : None CLAYTON Hx Falls Immediate/Within 3 Months : No Clayton Secondary Diagnosis : No CLAYTON Use of Ambulatory Aid : Bed rest/Nurse assist CLAYTON IV Therapy or IV Access : Yes [place] Gait/Transferring : Normal, bedrest, immobile [place] Mental Status : Oriented to own ability [place] Fall Risk Score : 20 C[place]TON Fall Scale Risk Level : 0-24 Low Risk [place] Fall Interventions : Adequate lighting, Assistive devices within reach, Bed in low position, Call device within reach, Frequent orientation to call device, Frequent orientation to surroundings, Hourly comfort/safety rounds, Non-slip footwear, Personal items within reach, Reinforced to call for assistance before getting out of bed, Room free of clutter/spills, Upper side-rails up, Wheels locked, Wires/Cords secured Levar Luna RN - 05/07/2020 9:28 EST Health Histories Smoking Status : Never (less than 100 in lifetime; none in last 30 days) Smokeless Tobacco Status : Never Levar Luna RN - 05/07/2020 9:28 EST Social History (As Of: 05/07/2020 09:37:25 EST) Height and Weight, Clinical Dosing Height Source : Stated Height Entry Format : [place] Height, Feet : 5 ft(Converted to: 152 cm, 60 Inch) Height, Inches : 6 Inch(Converted to: 0 ft 6 Inch, 15.24 cm) Clinical Height : 167.64 cm Weight Source : Standing scale Weight Entry Format : [place] Clinical Dosing Weight : 159.09 kg Weight, Pounds : 350 lb Body Surface Area (BSA) : 2.54 m2 Body Mass Index : 56.6 kg/m2 (>HHI) [place] Body Weight : 59 kg Levar Luna RN - 05/07/2020 9:28 EST Infectious Disease History Has the patient ever been tested for COVID-19? : Yes, Patient stated results Negative Date of COVID-19 test known? : Yes Date of COVID-19 Test : 05/07/2020 EST Does patient have symptoms of COVID-19? : No COVID19 Screening : No Experiencing Infectious Disease Symptoms : Vomiting Physical contact outside [place] in the last 30 days : No Infectious Disease History : Chicken pox/Shingles Tuberculosis Symptoms : None Levar Luna RN - 05/07/2020 9:28 EST Influenza Vaccine Asmt, Adult Previous Vaccines from Immunization Schedule : No qualifying data available. Influenza Immunization, Current Season : Outside of influenza season Levar Luna RN - 05/07/2020 9:28 EST Pneumococcal Vaccine Previous Vaccines from Immunization Schedule : No qualifying data available. Pneumonia Immunization Received : No Pneumococcal Risk Assessment < Age 65 : None Levar Luna RN - 05/07/2020 9:28 EST Order Details Patient Needs Meds Crushed/Liquid : No Levar Luna RN - 05/07/2020 9:28 EST Nutrition History Eating Poorly Due to Decreased Appetite : No Unplanned Weight Loss in Past 3-6 Months : No Malnutrition Screening Tool Total(mal) : 0 Malnutrition Screening Tool Risk Level : Patient not at risk Levar Luna RN - 05/07/2020 9:28 EST [place] Suicide Severity Rating Scale (C-SSRS) CSSRS Past Month Wish to be : No CSSRS Past Month Suicidal Thoughts : No CSSRS Lifetime Suicide Behavior : No Suicide Severity Rating Score : 0 Suicide Severity Rating : No Additional Care Required at this time Levar Luna RN - 05/07/2020 9:28 EST Psychosocial History Currently in Unsafe Situation : No Levar Luna RN - 05/07/2020 9:28 EST Sleep Apnea Risk Assmt BiPAP/CPAP Ordered for Home Use : Yes Hx of Obstructive Sleep Apnea Diagnosis : Yes BiPAP/CPAP Used at Home : No Reason BiPAP/CPAP Not Used at Home : pt has young kids that are terrified of the machine Age over 50 Years Old : No Gender Male : No Levar Luna RN - 05/07/2020 9:28 EST Valuables and Belongings Valuables and Belongings : Clothing, Jewelry, Personal items Clothing : Common streetwear Clothing Disposition : With patient Jewelry : Necklace, Ring Jewelry Disposition : With patient Personal Items : Cell phone, Purse Personal Items Disposition : With patient Levar Luna RN - 05/07/2020 9:28 EST Electronically signed by Jimmy [facility] Conversion Calcine Furnace Tender Cerner at 06/20/2022 6:22 PM CDT documented in this encounter Plan of Treatment Not on file documented as of this encounter Visit Diagnoses Not on filedocumented in this encounter
--- OUTSIDE RECORDS SUMMARY | 2024-10-16 10:25 | XMS_ITS | Encounter Summary ---
Author Organization [employer] ([place], [place], [place], [place]) Address [address] [place] [address] Care Team Providers Care Director Credit Risk Name Role Phone Unavailable Primary Care Provider Unavailabl e Encounter Details Date Type Department Care Team (Late st Contact Info) Description 05/10/2020 Transcribed Document [facility] [place] [facility] [place] [address] ProviderRuperto MD [address] [place] [address] Social History Tobacco Use Types [...] Cerner Conversion Note - Historical ProviderMD - 05/10/2020 2:00 AM STAGING TECHNICIAN Industrial Tech Instructor Details Entered On: 05/10/2020 4:16 EST Performed On: 05/10/2020 2:00 EST by Abeba Henderson, RN Order [...] Needs Meds Crushed/Liquid : No Abeba Henderson, DOMENICO - 05/10/2020 4:16 EST Electronically signed by Jimmy [facility] Conversion Cooker Syrup Cerner at 06/20/2022 6:13 PM CDT documented in this encounter Plan of Treatment Not on file documented as of this encounter Visit Diagnoses Not on filedocumented in this encounter
--- OUTSIDE RECORDS SUMMARY | 2024-10-16 10:25 | XMS_ITS | Encounter Summary ---
Author Organization [employer] ([place], [place], [place], [place]) Address [address] [place] [address] Care Team Providers Care Delivery Helper Name Role Phone Unavailable Primary Care Provider Unavailabl e Encounter Details Date Type Department Care Team (Late st Contact Info) Description 05/11/2020 Transcribed Document [facility] [place] [facility] [place] [address] ProviderRuperto MD [address] [place] [address] Social History Tobacco Use Types [...] Cerner Conversion Note - Historical ProviderMD - 05/11/2020 2:15 PM MANUFACTURING SYSTEMS ENGINEER UM Authorization Entered On: 05/11/2020 14:15 EST Performed On: 05/11/2020 14:15 EST by Willow Connelly, Cleaning Specialist Primary Insurance Authorization Authorization and Policy Numbers : Insurance 1 Health Plan: [employer] Policy Number: [id number] Authorization Number: Insurance Primary Name : [employer] Policy Number: [id number] Authorization Status-Primary : Awaiting callback Auth/Referral Contact Name-Primary : [place] Authorized Service Begin Date-Primary : 05/07/2020 EST Authorization Comments-Primary : Discharge date and summary faxed. Historical Authorization Comments-Primary : Comment 1: no updated information on website (Juliana Fontanez Rn-Utilization Review 05/11/2020 10:07) Comment 2: Faxed facesheet and orders to [employer] for Inpt notification. (DEL HARRISON, Rn-Utilization Review 05/08/2020 16:07) Willow Connelly, Cleaning Specialist - 05/11/2020 14:15 EST Electronically signed by Jimmy [facility] Conversion Registered Nurse Cerner at 06/20/2022 6:24 PM CDT documented in this encounter Plan of Treatment Not on file documented as of this encounter Visit Diagnoses Not on filedocumented in this encounter
--- OUTSIDE RECORDS SUMMARY | 2024-10-16 10:25 | XMS_ITS | Clinical Summary ---
Author Organization [facility] Address [address] [place] [address] Care Team Providers Care Brand Mgr Name Role Phone Dorothy Hernández FRANCISCO Primary Care Provider [phone] Allergies Active Allergy Reactions Criticality Noted Date Comments Hydrocodone Hives,Rash Medium 04/19/2021 Latex Hives,Swelling High 04/19/2021 Sulfa Drugs Anaphylaxis High 04/19/2021 Medications ibuprofen 600 MG tablet Take 1 tablet (600 mg total) by mouth every 6 (six) hours if needed for mild pain or fever for up to 14 doses. 14 tablet 2 Active lisinopril 10 MG tablet Take 1 tablet (10 mg total) by mouth 1 (one) time each day. 30 tablet 1 2 028 Active amitriptyline (Elavil) 10 MG tablet Take 1 tablet (10 mg) by mouth nightly. 4 Active cetirizine (ZyrTEC) 10 MG tablet Take 1 tablet (10 mg) by mouth daily. 4 Active Vitamin D3 1.25 MG (43261 UT) capsule Take 1 capsule (50,000 Units) by mouth 1 (one) time per week. 4 Active meloxicam (Mobic) 15 MG tablet Take 1 tablet (15 mg) by mouth daily. 4 Active dexamethasone (Decadron) 1 MG tabletIndicatio ns:Abnormal weight gain Take 1 tablet when directed 2 tablet 4 Active Additional Information Patient not taking.Reported on 05/05/2024 methocarbamol (Robaxin) 750 MG tablet Active Semaglutide-Dung ght Management (Wegovy) 0.25 MG/0.5ML solution auto-injector Inject 0.25 mg under the skin 1 (one) time per week. 2 mL Active levothyroxine (Synthroid, Levoxyl) 200 MCG tabletIndicatio ns:Hypothyroidi sm, unspecified type Take 1 tablet by mouth daily before breakfast. TAKE 1 TABLET (200 MCG) BY MOUTH DAILY IN ADDITION TO 50 MCG FOR A TOTAL DOSE OF 250 MCG OF LEVOTHYROXINE DAILY PATIENT MUST ATTEND FOLLOW UP ON 12/02/2024 FOR ANY ADDITIONAL REFILLS. 30 tablet 3 5 Active levothyroxine (Synthroid, Levoxyl) 50 MCG tabletIndicatio ns:Hypothyroidi sm, unspecified type Take 1 tablet by mouth daily before breakfast. IN COMBINATION WITH 200 MCG TABLET FOR TOTAL DAILY DOSE OF 250 MCG EVERY DAY PATIENT MUST ATTEND FOLLOW UP ON 12/02/2024 FOR ANY ADDITIONAL REFILLS. 30 tablet 3 5 Active Active Problems Problem Noted Date Diagnosed Date Lymphedema 05/18/2024 High cholesterol 05/18/2024 Multiple joint pain 05/18/2024 Hypothyroid 05/05/2024 Hypertension 03/02/2024 Sleep apnea, unspecified 03/02/2024 Hypothyroidism 02/29/2024 Abnormal weight gain 12/27/2023 Dental caries 09/14/2021 Morbid obesity with BMI of 60.0-69.9, adult 04/04 Encounters Date Type Department Care Team Description 07/20/2024 Refill [place] [facility] Endocrinology [address] [place] [address] Sarah Holland MD Hypothyroidism, unspecified type 07/20/2024 Refill [place] [facility] [place] [facility] Endocrinology [address] [place] [address] Marah Espinal PA Hypothyroidism, unspecified type from Last 3 Months Family History Medical History Relation Name Comments Diabetes Father Heriberto Dickson Heart attack Father Heriberto Dcikson Diabetes Mother Renee contreras Relation Name Status Comments Father Heriberto Dickson Alive Mother Renee contreras Alive Social History Tobacco Use Types Packs/Day Years Used Date Smoking Tobacco: Never Smokeless Tobacco: Never Tobacco Cessation:Counseling Given: Yes Alcohol Use Standard Drinks/Week Comments Not Currently 0 (1 standard drink = 0.6 oz pur e alcohol) PHQ-2 Answer Date Recorded Patient Health Questionnaire-2 Score 0 05/14/2024 PHQ-9 Answer Date Recorded Patient Health Questionnaire-9 Score 0 05/14/2024 PHQ-2A Answer Date Recorded Depression Risk 0 05/14/2024 PHQ-9A Answer Date Recorded Depression Risk Score 0 05/14/2024 Comments No Sex and Gender Information Value Date Recorded Sex Assigned at Female 04/25/2021 10:30 PM EST Legal Sex Female 8:45 PM EDT Gender Identity Female 04/25/2021 10:30 PM EST Sexual Orientation Straight 04/25/2021 10 :30 PM EST Last Filed Vital Signs Vital Sign Reading Time Taken Comments Blood Pressure 135/81 05/14/2024 1:52 PM EDT Pulse 88 05/14/2024 1:52 PM EDT Temperature 36.2 C (97.2 F) 05/05/2024 10:36 AM EST Respiratory Rate 16 05/14/2024 1:52 PM EDT Oxygen Saturation 95% 05/14/2024 1:52 PM EDT Inhaled Oxygen Concentration - - Weight 172 kg (378 lb 6.4 oz) 05/14/2024 1:52 PM EDT Height 162.6 cm (5' 4 ) 05/14/2024 1:52 PM EDT Body Mass Index 64.95 05/14/2024 1:52 PM EDT Plan of Treatment Upcoming Encounters Date Type Department Care Team (Late st Contact Info) Description 11/05/2024 2:40 PM EDT Office Visit [facility] [address] [facility] 5th Floor [address] [place] [address] Brianne Espinoza PA [address] [facility] [address] [place] [address] 12/02/2024 11:40 AM EDT Office Visit [facility] Endocrinology [address] [place] [address] Sona Wallace DO [address] [place] [address] Health Maintenance Due Date Last Done Comments Dental Oral Exam 1985 [facility]-Infant/Child/Adol SDOH Screenings 1985 Dental Prophylaxis 01/29/1994 07/28/1993 Diabetes: Dental Exam 1994 [facility]-Varicella Vaccines (1 of 2 - 13+ 2-dose series) 1997 [facility]- SDOH Screenings 2002 [facility]-Adult SDOH Screenings 2002 [facility]-Pneumococcal Vaccine: Pediatrics (0 to 5 Years) and At-Risk Patients (6 to 49 Years) (1 of 2 - PCV) 07/04/2003 [facility]-Pap Smear 2005 HPV Vaccines (1 - 3-dose SCDM series) 07/04/2011 [facility]-Cervical Cancer Screening 2014 [facility]-HPV/Cotest 2014 Dental X-Ray: Bitewings 09/22/2022 09/21/2021 [facility]-DTaP,Tdap,and Td Vaccines (3 - Td or Tdap) 07/07/2023 07/06/2013, 11/01/1998 [id number] Vaccine ( season) 2023 06/23/2021, 07/21/2020, 06/23/2020 Dental X-Ray: Full Mouth 04/27/2024 04/26/2021 [facility]-Influenza Vaccine (#1) 2024 12/11/2021 [facility]-Diabetes: Hemoglobin A1C 11/11/2024 05/14/2024 [facility]-Depression Screening 05/14/2025 025, 05/14/2024, 05/14/2024, Additional history exists [facility]-Zoster Vaccines (1 of 2) 2034 [facility]-Hepatitis B Vaccines Completed 000, 12/02/1998, 11/01/1998 [facility]-HIV Screening Completed 09/14/2021 [facility]-Hepatitis C Screening Completed 09/14/2021 [facility]-Obesity Intervention Completed 025, 05/05/2024, 03/02/2024, Additional history exists [facility]-HIB Vaccines Aged Out No longer e ligible based on patient's age to complete this topic [facility]-Hepatitis A Vaccines Aged Out No longer eligible based on patient's age to complete this topic [facility]-IPV Vaccines Aged Out No longer e ligible based on patient's age to complete this topic [facility]-Rotavirus Vaccines Aged Out No lo nger eligible based on patient's age to complete this topic Procedures Procedure Name Priority Date/Time Associated Diagnosis Comments HEMOGLOBIN A1C Routine 05/14/2024 2:36 PM EDT Lymphedema Morbid obesity with BMI of 60.0-69.9, adult (CMS/HCC) Hypertension, unspecified type High cholesterol Multiple joint pain 19 BITEWING - SINGLE RADIOGRAPHIC IMAGE Routine 09/21/2021 8:00 AM EDT Pain, dental HEPATITIS C ANTIBODY - ED W/REFLEX TO HCV QUANT PCR STAT 09/14/2021 10:49 AM EDT HIV 1/2 ANTIBODY/ANTIGEN SCREEN WITH REFLEX TO HIV I/II DIFFERENTIATION STAT 09/14/2021 10:49 AM EDT PANORAMIC RADIOGRAPHIC IMAGE Routine 04/26/2021 8:00 AM EST Dental caries PROPHYLAXIS - CHILD Routine 07/28/1993 1 2:00 AM EDT from Last 3 Months or Most Recently Relevant to Health Maintenance Results * Hemoglobin A1c (05/14/2024 2:36 PM EDT) Hemoglobin A1c 5.0 <5.7 % 05/14/2024 6:14 PM EDT [facility] Blood Venous blood specimen / Unknown Venipuncture / Unknown 05/14/2024 2:36 PM EDT 05/14/2024 2:37 PM EDT Narrative [facility] - 05/14/2024 6:14 PM EDT HA1C Interpretive Data: Diagnosis of Diabetes: Diabetic > or = 6.5% Pre-diabetic 5.7 to 6.4% Non-diabetic < or = 5.6% Glycemic Targets for Type I and Type II Diabetics: Non- Adults <7.0% Adults <6.0% Children and Adolescents <7.5% Source: [place] [employer]. Standards of medical care in diabetes,2017. Diabetes Care.2017:40 (suppl 1):S1-S135. HbA1c assay performed by an ion-exchange chromatography method that is certified traceable to the DCCT. Robyn Beckford APRN LAB BLOOD ORDERABLES Melisa l Result [facility] [address] [place] [address] * HIV 1 & 2 Antibody/Antigen Screen (09/14/2021 10:49 AM EDT) Pathologist [facility] HIV 1 & 2 Antibody/Anti gen Screen Nonreactive Nonreactive 09/14/2021 12:22 PM EDT [facility] Blood Venous blood specimen / Unknown Venipuncture / Unknown 09/14/2021 10:49 AM EDT 09/14/2021 11:05 AM EDT Reynold Flores MD LAB BLOOD ORDERABLES Final Res ult Performing Organization Address [facility] Co de Phone Number [facility] [address] [place] [address] * Hepatitis C Antibody - ED (09/14/2021 10:49 AM EDT) [facility] Hepatitis C Antibody Negative Negative 09/14/2021 12:21 PM EDT [facility] Blood Venous blood specimen / Unknown Venipuncture / Unknown 09/14/2021 10:49 AM EDT 09/14/2021 11:05 AM EDT Reynold Flores MD LAB BLOOD ORDERABLES Final Res ult Performing Organization Address City/[facility] Co de Phone Number [facility] [address] [place] [address] from Last 3 Months or Most Recently Relevant to Health Maintenance Insurance [employer] MEDICA[employer] [facility] MEDICAID DENTAL Care Teams Brand Mgr Relationship Specialty Start Date End Date Dorothy Hernández APRN [address] [place] [id number] PCP - General 04/04/21
--- OUTSIDE RECORDS SUMMARY | 2024-10-16 10:25 | XMS_ITS | Encounter Summary ---
Author Organization [employer] ([place], [place], [place], [place]) Address [address] [place] [address] Care Team Providers Care Booky Name Role Phone Unavailable Primary Care Provider Unavailabl e Encounter Details Date Type Department Care Team (Late st Contact Info) Description 05/10/2020 Transcribed Document [facility] Family Medicine [facility] [place] [address] ProviderRuperto MD [address] [place] [address] Social History Tobacco Use Types [...] Conversion Note - Historical ProviderMD - 05/10/2020 12:30 PM RECOVERER Patient: PASCALE BOOTHE Age: 34 Years Sex: Female : 1985 Assessment/Plan Postop day 3 laparoscopic cholecystectomy for acute cholecystitis. Doing well. Nausea has resolved. Tolerating full liquids. She is ambulating. Pain control is moderate. Mild transaminitis and hyperbilirubinemia are resolving, suspect these were from cholecystitis and large stone causing some biliary compression. No sign of ongoing biliary obstruction. I'll order regular diet. If she tolerates this for a meal or two okay to discharge any time either today or tomorrow. Can plan for follow-up in two weeks. Should avoid lifting more than 10 pounds. Okay to shower when home. I sent oxycodone and docusate to her pharmacy [facility] Prophylaxis - Medical Heparin 5,000 Units, SubCutaneous, Inj, Q8H, Routine, Start 05/07/20 14:00:00 EST, 05/07/20 11:02:00 EST (BLADIMIR YI) Subjective no issues. Feeling better than yesterday. Nausea resolved. Asking for solid food. Vital Signs T: 36.7 ??C TMIN: 36.4 ??C TMAX: 36.8 ??C HR: 56(Monitored) RR: 18 BP: 108/60 SpO2: 94% Oxygen Settings (Last) Oxygen Therapy Mode: Room air (05/10/20 07:49:00) Oxygen Flow Rate: 2 Liter/Min (05/07/20 20:19:00) Intake & Output Totals Last 24 Hours (7a-7a) Input Total: 1074.98 mL Output Total: 0 mL Balance: 1074.98 mL Physical Exam comfortable in bed, regular rate and rhythm, normal work of breathing on room air Abdomen soft, nontender, incisions without erythema or drainage Medications Dilaudid, 0.5 mg= 0.5 mL, IV Push, Q2H, PRN DuoNeb 0.5 mg-2.5 mg/3 mL inhalation solution, 3 mL, Nebulized Inhalation , RT_Q6H, PRN heparin, 5000 Units= 1 mL, SubCutaneous, Q8H hydrALAZINE, 10 mg= 0.5 mL, IV Push, Q6H, PRN pantoprazole, 40 mg= 1 Tab, Oral, Daily Phenergan, 12.5 mg= 0.5 mL, IV Push, Q6H, PRN [...] Test Result Date/Time Sodium Level 137 mmol/L 05/10/2020 06:46 EST Potassium Level 3.4 mmol/L (Low) 05/10/2020 06:46 EST Chloride Level 103 mmol/L 05/10/2020 06:46 EST Carbon Dioxide Level 31 mmol/L 05/10/2020 06:46 EST Anion Gap 6 (Low) 05/10/2020 06:46 EST Glucose Level 82 mg/dL 05/10/2020 06:46 EST Blood Urea Nitrogen 10 mg/dL 05/10/2020 06:46 EST Creatinine Level 0.90 mg/dL 05/10/2020 06:46 EST eGFR >60 mL/min/1.73m2 05/10/2020 06:46 EST eGFR NonAfrican >60 mL/min/1.73m2 05/10/2020 06:46 EST Bun/Creatinine 11.1 05/10/2020 06:46 EST Calcium Level 8.4 mg/dL 05/10/2020 06:46 EST Protein Total 6.3 Gram/dL (Low) 05/10/2020 06:46 EST Albumin Level 3.0 Gram/dL (Low) 05/10/2020 06:46 EST Globulin 3.3 Gram/dL 05/10/2020 06:46 EST A/G Ratio 0.9 (Low) 05/10/2020 06:46 EST Bilirubin Total 1.1 mg/dL 05/10/2020 06:46 EST Alk Phos 215 Units/Liter (High) 05/10/2020 06:46 EST AST 144 Units/Liter (High) 05/10/2020 06:46 EST ALT 233 Units/Liter (High) 05/10/2020 06:46 EST Lipase Level 45 Units/Liter (Low) 05/10/2020 06:46 EST WBC 8.1 K/uL 05/10/2020 06:46 EST RBC 3.73 Million/uL (Low) 05/10/2020 06:46 EST Hgb 11.0 g/dL (Low) 05/10/2020 06:46 EST Hct 35.4 % 05/10/2020 06:46 EST MCV 94.9 fL (High) 05/10/2020 06:46 EST MCH 29.5 pg 05/10/2020 06:46 EST MCHC 31.1 Gram/dL (Low) 05/10/2020 06:46 EST Platelet Count 200 K/uL 05/10/2020 06:46 EST MPV 11.4 fL 05/10/2020 06:46 EST RDW 13.7 % 05/10/2020 06:46 EST Slide Review No 05/10/2020 06:46 EST Electronically signed by [facility], [facility] Conversion Media Developer Cerner at 06/20/2022 6:35 PM CDT documented in this encounter Plan of Treatment Not on file documented as of this encounter Visit Diagnoses Not on filedocumented in this encounter
--- OUTSIDE RECORDS SUMMARY | 2024-10-16 10:25 | XMS_ITS | Encounter Summary ---
Author Organization [employer] ([place], [place], [place], [place]) Address [address] [place] [address] Care Team Providers Care Machine Installer Name Role Phone Unavailable Primary Care Provider Unavailabl e Encounter Details Date Type Department Care Team (Late st Contact Info) Description 05/08/2020 Transcribed Document [facility] Family Medicine [address] [place] [address] ProviderRuperto MD [address] [place] [address] Social History Tobacco Use Types Packs/Day Years Used Date Smoking Tobacco: Never Assessed Comments Unknown Sex and Gender Information Value Date Recorded Sex Assigned at Female 08/29/2021 4:28 PM CDT Legal Sex Female 4:28 PM CDT Gender Identity Female 08/29/2021 4:28 PM CDT Sexual Orientation Not on file documented as of this encounter Miscellaneous Notes * Cerner Conversion Note - Ruperto ProviderMD - 05/08/2020 10:56 AM COLLEGE COUNSELOR Patient: PASCALE BOOTHE Age: 34 years Sex: Female : 1985 Associated Diagnoses: None Author: GINO SOLORIO MD Subjective Seen and examined 3/ complains from nausea, abdominal pain She underwent laparoscopic cholecystectomy yesterday Review of Systems Nausea No fever no chills Abdominal pain No shortness of breath or chest pain Health Status Allergies: Allergic Reactions (Selected) Severe Sulfa drugs- No reactions were documented. Mild Latex- No reactions were documented. Medium Lortab- No reactions were documented., Allergies (3) Active Reaction sulfa drugs None Documented Lortab None Documented Latex None Documented Current medications: (Selected) Inpatient Medications Ordered Dilaudid: 0.5 mg, IV Push, Q2H, PRN: Pain (Severe 7-10) DuoNeb 0.5 mg-2.5 mg/3 mL inhalation solution: 3 mL, Nebulized Inhalation, RT_Q6H, PRN: Shortness of Breath Pravachol: 20 mg, Oral, At Bedtime Roxicodone: 10 mg, Oral, Q4H, PRN: Pain (Moderate 4-6) Sodium Chloride 0.9% intravenous solution 1,000 mL: 75 mL/Hr, IntraVENous Synthroid: 175 mcg, Oral, Daily Tylenol: 650 mg, Oral, Q4H, PRN: Pain (Mild 1-3) Zofran: 4 mg, IV Push, Q4H, PRN: Nausea Zoloft: 100 mg, Oral, Daily Zosyn + Sodium Chloride 0.9% intravenous solution 100 mL: 3.375 Gram, 33.33 mL/Hr, IV Piggyback, Q6HInt heparin: 5,000 Units, SubCutaneous, Q8H hydrALAZINE: 10 mg, IV Push, Q6H, PRN: Other (See Comment) propranolol: 40 mg, Oral, Daily Documented Medications Documented diclofenac sodium 75 mg oral delayed release tablet: 0 Refill(s) levothyroxine 175 mcg (0.175 mg) oral tablet: 0 Refill(s) lisinopril 10 mg oral tablet: 0 Refill(s) pravastatin 20 mg oral tablet: 0 Refill(s) propranolol 40 mg oral tablet: 0 Refill(s) sertraline 100 mg oral tablet: 0 Refill(s), Medications (13) Active Scheduled: (6) heparin 5,000 units/1 mL inj 5,000 Units 1 mL, SubCutaneous, Q8H levothyroxine 175 mcg (0.175 mg) tab 175 mcg 1 Tab, Oral, Daily piperacillin-tazobactam + NaCl 0.9% 100 mL 3.375 Gram, IV Piggyback, Q6HInt PRAVAstatin sodium 20 mg tab 20 mg 1 Tab, Oral, At Bedtime propranolol 20 mg tab 40 mg 2 Tab, Oral, Daily sertraline 100 mg tab 100 mg 1 Tab, Oral, Daily Continuous: (1) NaCl 0.9% 1,000 mL 1,000 mL, IntraVENous, 75 mL/Hr PRN: (6) acetaminophen 325 mg tab 650 mg 2 Tab, Oral, Q4H albuterol-ipratropium inh 3 mL 3 mL, Nebulized Inhalation, RT_Q6H hydrALAZINE 20 mg/1 mL inj 10 mg 0.5 mL, IV Push, Q6H HYDROmorphone 1 mg/1 mL inj 0.5 mg 0.5 mL, IV Push, Q2H ondansetron 4 mg/2 mL inj 4 mg 2 mL, IV Push, Q4H oxyCODONE 5 mg tab 10 mg 2 Tab, Oral, Q4H Problem list: Medical History of obstructive sleep apnea / IMO [id number] / Confirmed, Active Problems (8) Anxiety Depression History of obstructive sleep apnea Hyperlipidemia Hypertension Hypothyroidism, unspecified Migraines Sleep apnea Objective VS/Measurements Vitals Signs (last 24 hrs) Last Charted Minimum Maximum Temp 97.7 (MAY 08 08:59) 97.7 (MAY 08 08:59) 98.2 (MAY 07 12:00) Mon HR 81 (MAY 08 08:59) 49 (MAY 07 18:00) 83 (MAY 07 14:51) Resp Rate 17 (MAY 08 08:59) 14 (MAY 08 06:21) H 40 (MAY 07 14:51) SBP 116 (MAY 08 08:59) 115 (MAY 07 12:00) H 167 (MAY 07 15:10) DBP 68 (MAY 08 08:59) 60 (MAY 07 16:10) H 97 (MAY 07 14:51) MAP 80 (MAY 08 08:59) 80 (MAY 08 08:59) 114 (MAY 07 14:51) SpO2 94 (MAY 08 08:59) L 91 (MAY 08 07:44) 100 (MAY 07 15:00) General: Alert and oriented, Mild distress, Obese. Eye: Pupils are equal, round and reactive to light, Extraocular movements are intact, Normal conjunctiva. HENT: Normocephalic, No pharyngeal erythema. Neck: Supple, Non-tender, No lymphadenopathy. Respiratory: Lungs are clear to auscultation, Breath sounds are equal. Cardiovascular: Normal rate, Regular rhythm, No murmur, Good pulses equal in all extremities. Gastrointestinal: Soft, Non-distended, Normal bowel sounds, Right upper quadrant tenderness. Musculoskeletal: Normal range of motion, No tenderness. Integumentary: Warm, No rash. Neurologic: Alert, Oriented, No focal deficits. Psychiatric: Cooperative, Appropriate mood & affect. Review / Management MAY 08 06:11 137 104 7 / H 115 4.1 29 0.80 \ MAY 08 06:11 \ 12.3 / H 14.8 282 / 39.0 \ No Radiology Results Found Results review: Labs (Last four charted values) WBC H 14.8 (MAY 08) H 11.9 (MAY 07) HB 12.3 (MAY 08) 12.0 (MAY 07) HCT 39.0 (MAY 08) 37.2 (MAY 07) Plt 282 (MAY 08) 246 (MAY 07) Na 137 (MAY 08) 139 (MAY 07) K 4.1 (MAY 08) 4.2 (MAY 07) Cl 104 (MAY 08) 105 (MAY 07) CO2 29 (MAY 08) 28 (MAY 07) BUN 7 (MAY 08) 8 (MAY 07) Cr 0.80 (MAY 08) 0.70 (MAY 07) Glu R H 115 (MAY 08) H 107 (MAY 07) Ca 8.8 (MAY 08) 9.0 (MAY 07) PT 10.3 (MAY 07) INR 1.0 (MAY 07) AST H 110 (MAY 08) 11 (MAY 07) ALT H 104 (MAY 08) 21 (MAY 07) ALK P 113 (MAY 08) 81 (MAY 07) T Bili H 1.4 (MAY 08) 0.6 (MAY 07) PTN 7.2 (MAY 08) 7.2 (MAY 07) ALB L 3.3 (MAY 08) 3.4 (MAY 07) . Impression and Plan #Probable acute cholecystitis CT scan showed large gallstone, distended gallbladder Keep patient n.p.o. IV fluid IV Zosyn Consult surgery underwent laparoscopic cholecystectomy 3/ Advance diet per surgery Encourage ambulation Pain control #Right upper quadrant pain Bowel rest Pain control #Elevated white count IV antibiotic Monitor Afebrile Recheck in the morning #Elevated LFT post operative Monitor #Nausea and vomiting Keep patient n.p.o. Antiemetic as needed #Hypertension Patient on lisinopril at home IV hydralazine as needed Monitor blood pressure #Hypothyroidism levothyroxine #Anxiety and depression Resume home medication #Morbid obesity Complicate clinical aspect of care #Obstructive sleep apnea Patient not compliant with CPAP We will order CPAP at night and with sleep #Migraine headache We will resume home medications when list available DVT prophylaxis SCDs Time spent 33 minutes Discussed with patient family at bedside Labs, imaging from outside hospital reviewed Electronically signed by Fran Marquez Conversion Director Of Student Financial Services Cerner at 06/20/2022 6:29 PM CDT documented in this encounter Plan of Treatment Not on file documented as of this encounter Visit Diagnoses Not on filedocumented in this encounter
--- OUTSIDE RECORDS SUMMARY | 2024-10-16 10:25 | XMS_ITS | Encounter Summary ---
Author Organization [employer] ([place], [place], [place], [place]) Address [address] [place] [address] Care Team Providers Care Boring Inspector Name Role Phone Unavailable Primary Care Provider Unavailabl e Encounter Details Date Type Department Care Team (Late st Contact Info) Description 05/11/2020 Transcribed Document [facility] [place] [address] ProviderRuperto MD [address] [place] [address] Social History Tobacco Use Types [...] Cerner Conversion Note - Ruperto ProviderMD - 05/11/2020 10:21 AM WASTE [place] [address] PASCALE BOOTHE :1985 Visit Time:05/07/2020 Your Visit Summary Your Care Team Admitting Physician - KEELY GUZMAN, DO-INT Attending Physician - GINO SOLORIO MD Primary Care Physician - JAYDON GARY, RESISTOR WINDER-FAM Referring Physician - PAULA DELGADO (REF)MD-INT Your Diagnosis Abdominal pain Calculus of gallbladder without cholecystitis without obstruction, Calculus of gallbladder without cholecystitis without obstruction Discharge Vitals Temperature 36.9 ??C Heart Rate (Monitored) 56 Respiratory Rate 18 Blood Pressure 124/70 What to do next Instructions From Your Care Team Diet after Discharge: Resume usual diet as tolerated, Activity after Discharge: As tolerated, Lifting Restrictions: No heavy lifting over 10 pounds Driving after Discharge: Do not drive until 24 hours after no longer taking pain medications May Return to Work/School: to be determined by physician Showering/Bathing: May shower, No tub bathing, soaking or swimming Notify Provider of: questions or concerns Wound/Incision Care after Discharge: Keep operative site/wound site clean and dry, Discharge Activity: Discharge Activity: Activity as tolerated Diet: Discharge Diet: Resume usual diet as tolerated Follow-Up Appointments Follow Up with BLADIMIR YI MD When 05/25/2020 11:00 AM EDT Comments Appointment has been made Bring discharge instructions with you Bring Ins Card, Photo ID, Ins Co-pay Where: [id number] [facility] [address] [address]- Follow Up with JAYDON GARY APRN-FAM When 05/16/2020 02:15 PM EDT Comments Appointment has been made Bring discharge instructions with you Bring Ins Card, Photo ID, Ins Co-pay Where: [address] [place] [address]- [phone] Medications What How Much When Instructions Next Dose docusate (Colace 100 mg oral capsule) 1 Capsule(s) Oral Every Day Pickup at [facility] 05/12/2020 AM oxyCODONE (Roxicodone 5 mg oral tablet) 1 Tablet(s) Oral Every 4 Hours as needed for Pain (Moderate 4-6) Pickup at [facility] as needed PRAVAstatin (pravastatin 20 mg oral tablet) 1 Tablet(s) Oral Every Day 05/12/2020 AM diclofenac (diclofenac sodium 75 mg oral delayed release tablet) 1 Tablet(s) Oral Two Times A Day 05/11/2020 PM levothyroxine (levothyroxine 175 mcg (0.175 mg) oral tablet) 1 Tablet(s) Oral Every Day 05/12/2020 AM lisinopril (lisinopril 10 mg oral tablet) 1 Tablet(s) Oral Every Day 05/12/2020 AM propranolol (propranolol 40 mg oral tablet) 1 Tablet(s) Oral Every Day 05/12/2020 AM sertraline (sertraline 100 mg oral tablet) 1 Tablet(s) Oral Every Day 05/12/2020 AM Pharmacy Information [facility] [address] [place], [place] [phone] Take your medications faithfully. Do NOT skip medication. Do NOT stop taking medications without the direction of a physician. Carry a list of your medications with you at all times, and take this medication list with you to your first follow up visit. Report any side effects. Avoid herbal remedies unless discussed with your physician. As part of your treatment plan, your physician may have prescribed a limited course of a controlled substance. This medication may be given to help people with moderate or severe pain or for other medical conditions, but there are risks involved with treatment. Common side effects may include nausea, constipation, drowsiness, sweating, itching, dry mouth, and rash. More serious side effects may include cognitive and motor impairment, like problems with thinking, concentrating, alertness, and movement (e.g. slowed reflexes), and driving and operating heavy machinery can be dangerous. It is important for you to talk to your physician if you have these side effects or questions. These controlled substances can produce physical dependence and be habit-forming if taken for an extended period of time, which means that the body has gotten used to them and may experience withdrawal symptoms if they are abruptly stopped. Withdrawal symptoms can include runny nose, sweating, goose bumps, diarrhea, abdominal cramping, rapid heartbeat, difficulty sleeping, and nervousness. Please dispose of unused and medications per your retail pharmacy guidance. Allergies sulfa drugs Latex Lortab Immunizations This Visit No Immunizations Found Stroke/TIA Instructions Individualized Stroke Risk Factors Individualized Stroke Risk Factors *Q: Hypertension/High blood pressure Stroke/TIA Signs/Symptoms to Report Immediately: Sudden onset difficulty speaking, Sudden onset difficulty understanding speech, Sudden onset change in vision, Sudden onset weakness particulary on one side of the body, Sudden onset numbness/tingling, Sudden severe headache, Sudden dizziness or trouble with gait, Call : EMS activation is crucial Mutually Agreed Upon Goals My LDL Level: My LDL Level: Education Materials Laparoscopic Cholecystectomy, Care After This sheet gives you information about how to care for yourself after your procedure. Your health care provider may also give you more specific instructions. If you have problems or questions, contact your health care provider. What can I expect after the procedure? After the procedure, it is common to have: ??? Pain at your incision sites. You will be given medicines to control this pain. ??? Mild nausea or vomiting. ??? Bloating and possible shoulder pain from the air-like gas that was used during the procedure. Follow these instructions at home: Incision care ??? Follow instructions from your health care provider about how to take care of your incisions. Make sure you: ? Wash your hands with soap and water before you change your bandage (dressing). If soap and water are not available, use hand bomb technician. ? Change your dressing as told by your health care provider. ? Leave stitches (sutures), skin glue, or adhesive strips in place. These skin closures may need to be in place for 2 weeks or longer. If adhesive strip edges start to loosen and curl up, you may trim the loose edges. Do not remove adhesive strips completely unless your health care provider tells you to do that. ??? Do not take baths, swim, or use a hot tub until your health care provider approves. Ask your health care provider if you can take showers. You may only be allowed to take sponge baths for bathing. ??? Check your incision area every day for signs of infection. Check for: ? More redness, swelling, or pain. ? More fluid or blood. ? Warmth. ? Pus or a bad smell. Activity ??? Do not drive or use heavy machinery while taking prescription pain medicine. ??? Do not lift anything that is heavier than 10 lb (4.5 kg) until your health care provider approves. ??? Do not play contact sports until your health care provider approves. ??? Do not drive for 24 hours if you were given a medicine to help you relax (sedative). ??? Rest as needed. Do not return to work or school until your health care provider approves. General instructions ??? Take iunx-jqm-srmxwxu and prescription medicines only as told by your health care provider. ??? To prevent or treat constipation while you are taking prescription pain medicine, your health care provider may recommend that you: ? Drink enough fluid to keep your urine clear or pale yellow. ? Take rzvd-aaw-bdovbsv or prescription medicines. ? Eat foods that are high in fiber, such as fresh fruits and vegetables, whole grains, and beans. ? Limit foods that are high in fat and processed sugars, such as fried and sweet foods. Contact a health care provider if: ??? You develop a rash. ??? You have more redness, swelling, or pain around your incisions. ??? You have more fluid or blood coming from your incisions. ??? Your incisions feel warm to the touch. ??? You have pus or a bad smell coming from your incisions. ??? You have a fever. ??? One or more of your incisions breaks open. Get help right away if: ??? You have trouble breathing. ??? You have chest pain. ??? You have increasing pain in your shoulders. ??? You faint or feel dizzy when you stand. ??? You have severe pain in your abdomen. ??? You have nausea or vomiting that lasts for more than one day. ??? You have leg pain. This information is not intended to replace advice given to you by your health care provider. Make sure you discuss any questions you have with your health care provider. Document Released: 02/18/2006 Document Revised: 01/31/2018 Document Reviewed: 08/06/2016 [employer] Patient Education ?? 2020 [employer]. Cholecystitis Cholecystitis is inflammation of the gallbladder. It is often called a gallbladder attack. The gallbladder is a pear-shaped organ that lies beneath the liver on the right side of the body. The gallbladder stores bile, which is a fluid that helps the body digest fats. If bile builds up in your gallbladder, your gallbladder becomes inflamed. This condition may occur suddenly. Cholecystitis is a serious condition and requires treatment. What are the causes? The most common cause of this condition is gallstones. Gallstones can block the tube (duct) that carries bile out of your gallbladder. This causes bile to build up. Other causes include: ??? Damage to the gallbladder due to a decrease in blood flow. ??? Infections in the bile ducts. ??? Scars or kinks in the bile ducts. ??? Tumors in the liver, pancreas, or gallbladder. What increases the risk? You are more likely to develop this condition if: ??? You have sickle cell disease. ??? You take control pills or use estrogen. ??? You have alcoholic liver disease. ??? You have liver cirrhosis. ??? You have your nutrition delivered through a vein (parenteral nutrition). ??? You are critically ill. ??? You do not eat or drink for a long time. This is also called fasting. ??? You are obese. ??? You lose weight too fast. ??? You are . ??? You have high levels of fat (triglycerides) in the blood. ??? You have pancreatitis. What are the signs or symptoms? Symptoms of this condition include: ??? Pain in the abdomen, especially in the upper right area of the abdomen. ??? Tenderness or bloating in the abdomen. ??? Nausea. ??? Vomiting. ??? Fever. ??? Chills. How is this diagnosed? This condition is diagnosed with a medical history and physical exam. You may also have other tests, including: ??? Imaging tests, such as: ? An ultrasound of the gallbladder. ? A CT scan of the abdomen. ? A gallbladder nuclear scan (HIDA scan). This scan allows your health care provider to see the bile moving from your liver to your gallbladder and on to your small intestine. ? MRI. ??? Blood tests, such as: ? A complete blood count. The white blood cell count may be higher than normal. ? Liver function tests. Certain types of gallstones cause some results to be higher than normal. How is this treated? Treatment may include: ??? Surgery to remove your gallbladder (cholecystectomy). ??? Antibiotic medicine, usually through an IV. ??? Fasting for a certain amount of time. ??? Giving IV fluids. ??? Medicine to treat pain or vomiting. Follow these instructions at home: ??? If you had surgery, follow instructions from your health care provider about home care after the procedure. Medicines ??? Take obbf-ulh-tkjpusa and prescription medicines only as told by your health care provider. ??? If you were prescribed an antibiotic medicine, take it as told by your health care provider. Do not stop taking the antibiotic even if you start to feel better. General instructions ??? Follow instructions from your health care provider about what to eat or drink. When you are allowed to eat, avoid eating or drinking anything that triggers your symptoms. ??? Do not lift anything that is heavier than 10 lb (4.5 kg), or the limit that you are told, until your health care provider says that it is safe. ??? Do not use any products that contain nicotine or tobacco, such as cigarettes and e-cigarettes. If you need help quitting, ask your health care provider. ??? Keep all follow-up visits as told by your health care provider. This is important. Contact a health care provider if: ??? Your pain is not controlled with medicine. ??? You have a fever. Get help right away if: ??? Your pain moves to another part of your abdomen or to your back. ??? You continue to have symptoms or you develop new symptoms even with treatment. Summary ??? Cholecystitis is inflammation of the gallbladder. ??? The most common cause of this condition is gallstones. Gallstones can block the tube (duct) that carries bile out of your gallbladder. ??? Common symptoms are pain in the abdomen, nausea, vomiting, fever, and chills. ??? This condition is treated with surgery to remove the gallbladder, medicines, fasting, and IV fluids. ??? Follow your health care provider's instructions for eating and drinking. Avoid eating anything that triggers your symptoms. This information is not intended to replace advice given to you by your health care provider. Make sure you discuss any questions you have with your health care provider. Document Released: 02/18/2006 Document Revised: 06/27/2018 Document Reviewed: 06/27/2018 [employer] Patient Education ?? 2020 [employer]. docusate (oral/rectal) (K esequiel lam) Colace, Diocto, Doc-Q-Lace, Docu, Doculase, Docusil, Docusoft S, DocuSol, Dulcolax Stool Softener, Enemeez Mini, Armando-Tin, Pedia-Lax Stool Softener, Espinoza Stool Softener, Promolaxin, Silace, Surfak Stool Softener, Carmelina-Q-Lax What is the most important information I should know about docusate? You should not use docusate if you also use mineral oil, unless your doctor tells you to. What is docusate? Docusate is a stool softener that makes bowel movements softer and easier to pass. Docusate is used to relieve occasional constipation (irregularity). There are many brands and forms of docusate available. Not all brands are listed on this leaflet. Docusate may also be used for purposes not listed in this medication guide. What should I discuss with my healthcare provider before using docusate? You should not use docusate if you are allergic to it. Ask a doctor or pharmacist if this medicine is safe to use if you have: ?? stomach pain; ?? nausea; ?? vomiting; or ?? a sudden change in bowel habits that lasts over 2 weeks. Ask a doctor before using this medicine if you are or . Do not give this medicine to a child without medical advice. How should I use docusate? Use exactly as directed on the label, or as prescribed by your doctor. Drink plenty of liquids while you are using docusate. Measure liquid medicine carefully. Use the dosing syringe provided, or use a medicine dose-measuring device (not a kitchen spoon). Do not take the rectal enema by mouth. Rectal medicine is for use only in the rectum. Wash your hands before and after using the enema. To use the enema, lie on your left side with your left leg extended and your right leg slightly bent. Remove the cap from the applicator tip and gently insert the tip into your rectum. Slowly squeeze the bottle to empty the contents into the rectum. After using the enema, lie down on your left side for at least 30 minutes to allow the liquid to distribute throughout your intestines. Avoid using the bathroom, and hold in the enema at least 1 hour, or all night if possible. Read and carefully follow any Instructions for Use provided with your medicine. Ask your doctor or pharmacist if you do not understand these instructions. Docusate generally produces bowel movement in 12 to 72 hours. Call your doctor if your symptoms do not improve after 72 hours. You should not use docusate for longer than 1 week, unless your doctor tells you to. Store at room temperature away from moisture and heat. Do not freeze liquid medicine. What happens if I miss a dose? Since docusate is used when needed, you may not be on a dosing schedule. Skip any missed dose if it's almost time for your next dose. Do not use two doses at one time. What happens if I overdose? Seek emergency medical attention or call the Poison Help line at . What should I avoid while using docusate? Avoid using mineral oil, unless told to do so by a doctor. What are the possible side effects of docusate? Get emergency medical help if you have signs of an allergic reaction: hives; difficult breathing; swelling of your face, lips, tongue, or throat. Stop using docusate and call your doctor at once if you have: ?? rectal bleeding or irritation; or ?? no bowel movement after 72 hours. Less serious side effects may be more likely, and you may have none at all. This is not a complete list of side effects and others may occur. Call your doctor for medical advice about side effects. You may report side effects to FDA at 4-534-FDJ-3638. What other drugs will affect docusate? Other drugs may affect docusate, including prescription and udlx-rvq-eyuswye medicines, vitamins, and herbal products. Tell your doctor about all your current medicines and any medicine you start or stop using. Where can I get more information? Your pharmacist can provide more information about docusate. Remember, keep this and all other medicines out of the reach of children, never share your medicines with others, and use this medication only for the indication prescribed. Every effort has been made to ensure that the information provided by [employer] is accurate, up-to-date, and complete, but no guarantee is made to that effect. Drug information contained herein may be time sensitive. [employer] information has been compiled for use by healthcare practitioners and consumers in the [place] and therefore [employer] does not warrant that uses outside of the [place] are appropriate, unless specifically indicated otherwise. [employer] drug information does not endorse drugs, diagnose patients or recommend therapy. [employer] drug information is an informational resource designed to assist licensed healthcare practitioners in caring for their patients and/or to serve consumers viewing this service as a supplement to, and not a substitute for, the expertise, skill, knowledge and judgment of healthcare practitioners. The absence of a warning for a given drug or drug combination in no way should be construed to indicate that the drug or drug combination is safe, effective or appropriate for any given patient. [employer] does not assume any responsibility for any aspect of healthcare administered with the aid of information [employer] provides. The information contained herein is not intended to cover all possible uses, directions, precautions, warnings, drug interactions, allergic reactions, or adverse effects. If you have questions about the drugs you are taking, check with your doctor, nurse or pharmacist. Copyright 4209-7669 [facility]. Version: 4.01. Revision Date: 09/08/2018. oxycodone (ox i KOE done) Oxaydo, OxyCONTIN, Oxyfast, OxyIR, Roxicodone, Xtampza ER What is the most important information I should know about oxycodone? MISUSE OF OPIOID MEDICINE CAN CAUSE ADDICTION, OVERDOSE, OR . Keep the medication in a place where others cannot get to it. Taking opioid medicine during may cause life-threatening withdrawal symptoms in the . Fatal side effects can occur if you use opioid medicine with alcohol, or with other drugs that cause drowsiness or slow your breathing. What is oxycodone? Oxycodone is an opioid pain medication used to treat moderate to severe pain. The extended-release form of oxycodone is for anrtzk-met-nxxck treatment of pain and should not be used on an as-needed basis for pain. Oxycodone may also be used for purposes not listed in this medication guide. What should I discuss with my healthcare provider before using oxycodone? You should not use oxycodone if you are allergic to it, or if you have: ?? severe asthma or breathing problems; or ?? a blockage in your stomach or intestines. You should not use oxycodone unless you are already using a similar opioid medicine and are tolerant to it. Most brands of oxycodone are not approved for use in people under 18. OxyContin should not be given to a child younger than 11 years old. Tell your doctor if you have ever had: ?? breathing problems, sleep apnea; ?? a head injury, or seizures; ?? drug or alcohol addiction, or mental illness; ?? liver or kidney disease; ?? urination problems; or ?? problems with your gallbladder, pancreas, or thyroid. If you use opioid medicine while you are , your baby could become dependent on the drug. This can cause life-threatening withdrawal symptoms in the baby after it is born. Babies born dependent on opioids may need medical treatment for several weeks. Ask a doctor before using opioid medicine if you are . Tell your doctor if you notice severe drowsiness or slow breathing in the nursing baby. How should I use oxycodone? Follow the directions on your prescription label and read all medication guides. Never use oxycodone in larger amounts, or for longer than prescribed. Tell your doctor if you feel an increased urge to take more of this medicine. Never share opioid medicine with another person, especially someone with a history of drug abuse or addiction. MISUSE CAN CAUSE ADDICTION, OVERDOSE, OR . Keep the medication in a place where others cannot get to it. Selling or giving away opioid medicine is against the law. Stop taking all other yiyeri-uak-vqprr opioid pain medicines when you start taking extended-release oxycodone. Take oxycodone with food. Swallow the capsule or tablet whole to avoid exposure to a potentially fatal overdose. Do not crush, chew, break, open, or dissolve. If you cannot swallow a capsule whole, open it and sprinkle the medicine into a spoonful of pudding or applesauce. Swallow the mixture right away without chewing. Do not save it for later use. Never crush or break an oxycodone pill to inhale the powder or mix it into a liquid to inject the drug into your vein. This can cause in . Measure liquid medicine carefully. Use the dosing syringe provided, or use a medicine dose-measuring device (not a kitchen spoon). You should not stop using oxycodone suddenly. Follow your doctor's instructions about tapering your dose. Store at room temperature, away from heat, moisture, and light. Keep track of your medicine. Oxycodone is a drug of abuse and you should be aware if anyone is using your medicine improperly or without a prescription. Do not keep leftover opioid medication. Just one dose can cause in someone using this medicine accidentally or improperly. Ask your pharmacist where to locate a drug take-back disposal program. If there is no take-back program, flush the unused medicine down the toilet. What happens if I miss a dose? Since oxycodone is used for pain, you are not likely to miss a dose. Skip any missed dose if it is almost time for your next dose. Do not use two doses at one time. What happens if I overdose? Seek emergency medical attention or call the Poison Help line at . An opioid overdose can be fatal, especially in a child or other person using the medicine without a prescription. Overdose symptoms may include severe drowsiness, pinpoint pupils, slow breathing, or no breathing. Your doctor may recommend you get naloxone (a medicine to reverse an opioid overdose) and keep it with you at all times. A person caring for you can give the naloxone if you stop breathing or don't wake up. Your caregiver must still get emergency medical help and may need to perform CPR (cardiopulmonary resuscitation) on you while waiting for help to arrive. Anyone can buy naloxone from a pharmacy or local health department. Make sure any person caring for you knows where you keep naloxone and how to use it. What should I avoid while using oxycodone? Do not drink alcohol. Dangerous side effects or could occur. Avoid driving or operating machinery until you know how oxycodone will affect you. Dizziness or severe drowsiness can cause falls or other accidents. Avoid medication errors. Always check the brand and strength of oxycodone you get from the pharmacy. What are the possible side effects of oxycodone? Get emergency medical help if you have signs of an allergic reaction: hives; difficult breathing; swelling of your face, lips, tongue, or throat. Opioid medicine can slow or stop your breathing, and may occur. A person caring for you should give naloxone and/or seek emergency medical attention if you have slow breathing with long pauses, blue colored lips, or if you are hard to wake up. Call your doctor at once if you have: ?? noisy breathing, sighing, shallow breathing, breathing that stops during sleep; ?? a slow heart rate or weak pulse; ?? a light-headed feeling, like you might pass out; ?? confusion, unusual thoughts or behavior; ?? seizure (convulsions); ?? low cortisol levels-- nausea, vomiting, loss of appetite, dizziness, worsening tiredness or weakness; or ?? high levels of serotonin in the body--agitation, hallucinations, fever, sweating, shivering, fast heart rate, muscle stiffness, twitching, loss of coordination, nausea, vomiting, diarrhea. Serious breathing problems may be more likely in older adults and in those who are debilitated or have wasting syndrome or chronic breathing disorders. Common side effects may include: ?? drowsiness, headache, dizziness, tiredness; or ?? constipation, stomach pain, nausea, vomiting. This is not a complete list of side effects and others may occur. Call your doctor for medical advice about side effects. You may report side effects to FDA at 8-611-SPE-8114. What other drugs will affect oxycodone? You may have breathing problems or withdrawal symptoms if you start or stop taking certain other medicines. Tell your doctor if you also use an antibiotic, antifungal medication, heart or blood pressure medication, seizure medication, or medicine to treat HIV or hepatitis C. Opioid medication can interact with many other drugs and cause dangerous side effects or . Be sure your doctor knows if you also use: ?? cold or allergy medicines, bronchodilator asthma/COPD medication, or a diuretic ('water pill'); ?? medicines for motion sickness, irritable bowel syndrome, or overactive bladder; ?? other opioids--opioid pain medicine or prescription cough medicine; ?? a sedative like Valium--diazepam, alprazolam, lorazepam, Xanax, Klonopin, Versed, and others; ?? drugs that make you sleepy or slow your breathing--a sleeping pill, muscle relaxer, medicine to treat mood disorders or mental illness; or ?? drugs that affect serotonin levels in your body--a stimulant, or medicine for depression, Parkinson's disease, migraine headaches, serious infections, or nausea and vomiting. This list is not complete and many other drugs may affect oxycodone. This includes prescription and [id number] medicines, vitamins, and herbal products. Not all possible drug interactions are listed here. Where can I get more information? Your pharmacist can provide more information about oxycodone. Remember, keep this and all other medicines out of the reach of children, never share your medicines with others, and use this medication only for the indication prescribed. Every effort has been made to ensure that the information provided by [employer]. ('[employer]') is accurate, up-to-date, and complete, but no guarantee is made to that effect. Drug information contained herein may be time sensitive. [employer] information has been compiled for use by healthcare practitioners and consumers in the [place] and therefore [employer] does not warrant that uses outside of the [place] are appropriate, unless specifically indicated otherwise. [employer]'s drug information does not endorse drugs, diagnose patients or recommend therapy. [employer] drug information is an informational resource designed to assist licensed healthcare practitioners in caring for their patients and/or to serve consumers viewing this service as a supplement to, and not a substitute for, the expertise, skill, knowledge and judgment of healthcare practitioners. The absence of a warning for a given drug or drug combination in no way should be construed to indicate that the drug or drug combination is safe, effective or appropriate for any given patient. [facility] does not assume any responsibility for any aspect of healthcare administered with the aid of information [facility] provides. The information contained herein is not intended to cover all possible uses, directions, precautions, warnings, drug interactions, allergic reactions, or adverse effects. If you have questions about the drugs you are taking, check with your doctor, nurse or pharmacist. Copyright 7380-1475 [employer]. Version: 14.02. Revision Date: 03/31/2020. Emergency Awareness and Preventative Care STROKE is an EMERGENCY Every Minute Counts Act FAST and Check for these signs: FACE Does the face look uneven? ARM Does one arm drift down? SPEECH Does their speech sound strange? TIME Call at any sign of stroke Stroke Risk Factors Atrial Fibrillation (irregular heartbeat) Diabetes Family history of stroke Heart Disease Heavy alcohol use High Blood Pressure High Cholesterol Physical inactivity and obesity Smoking Cigarette Smoking The facts are clear, cigarette smoking will shorten your life. Smoking can cause many illnesses along the way. As a healthcare provider, we recommend that you stop smoking. Assistance with quitting is available by contacting 3-179-VQTE-NOW. This is a free resource providing counseling, support, and referral. Or you may contact your personal physician. National Suicide Prevention Lifeline: The National Suicide Prevention Lifeline is a national network of local crisis centers that provides free and confidential emotional support to people in suicidal crisis or emotional distress 24 hours a day, 7 days a week. Don't Wait! Stop a Heart Attack Before it Starts What is a heart attack? A heart attack is damage or to a part of the heart from severely decreased or lack of blood flow to the heart. Over time, arteries can become narrow from the buildup of fat and cholesterol, which is called plaque. The plaque can rupture causing a blood clot to form. When the blood clot forms, the artery can become severely narrowed or completely blocked, causing a heart attack. Heart attack is the leading cause of in the [place]. 85% of muscle damage occurs within the first 2 hours. Delay in the recognition of heart attack symptoms increases the chances of . Know the early symptoms of a heart attack: Nausea Feeling of fullness in chest Jaw Pain Pain that travels down one or both arms Fatigue/being tired Anxiety Back Pain Chest pressure, squeezing, or discomfort Shortness of breath Sweating, or a cold sweat Feeling of impending doom There are unusual signs of a heart attack, too! Women, the elderly, and diabetics may present with atypical symptoms: Fainting/dizziness Weakness Confusion Risk Factors for a Heart Attack Some heart disease risk factors, such as age and family history, cannot be changed. Others, like smoking and lack of exercise, can be changed. Smoking High Cholesterol High Blood Pressure Family History Obesity Age Gender (Males are at higher risk) Lack of Exercise Diabetes Diet Stress Excessive Alcohol Intake If you or someone you know is experiencing the signs and symptoms of a heart attack, DON???T DELAY. Call immediately and seek help. If someone collapses, perform CPR! Do not attempt to drive if you are having symptoms of heart attack. Hands-Only CPR Why Hands-Only CPR? Hands-Only CPR has been shown to be as effective as conventional CPR for cardiac arrests that occur outside of a hospital. Survival depends on immediately receiving CPR from someone nearby. How do you perform Hands-Only CPR? There are two easy steps: Call if you see a teen or adult collapse Push hard and fast in the center of the chest at a beat of 100 beats per minute. Save a life! 4 WAYS TO GET AHEAD OF SEPSIS SEPSIS is a MEDICAL EMERGENCY. Time matters! Infections put you and your family at risk for a life-threatening condition called sepsis. Sepsis is the body's extreme response to an infection. It is life-threatening, and without timely treatment, sepsis can rapidly lead to tissue damage, organ failure, and . Sepsis happens when an infection you already have-in your skin, lungs, urinary tract or somewhere else-triggers a chain reaction throughout your body. 1 PREVENT INFECTIONS Take good care of chronic conditions. Talk to your doctor about getting the recommended vaccines. 2 PRACTICE GOOD HYGIENE Wash your hands frequently. Keep cuts or open sores clean and covered until they are healed. 3 KNOW THE SYMPTOMS Confusion or disorientation Shortness of breath High heart rate Fever, shivering, or feeling very cold Extreme pain or discomfort Clammy or sweaty skin 4 ACT FAST Get medical care IMMEDIATELY if you suspect sepsis or if you have an infection that is not getting better or is getting worse. To learn more about sepsis and how to prevent infections, visit www.cdc.gov/sepsis. Test Results Laboratory or Other Results This Visit (last charted value for your 05/07/2020 visit) Hematology 05/11/2020 7:12 AM WBC: 8.1 K/uL -- Normal range between ( 4.5 and 10.5 ) RBC: 3.73 Million/uL -- Normal range between ( 3.93 and 5.22 ) Hct: 35.4 % -- Normal range between ( 34.1 and 44.9 ) Hgb: 11.0 g/dL -- Normal range between ( 11.2 and 15.7 ) Platelet Count: 190 K/uL -- Normal range between ( 163 and 369 ) MCH: 29.5 pg -- Normal range between ( 25.6 and 32.2 ) MCHC: 31.1 Gram/dL -- Normal range between ( 32.2 and 36.5 ) MCV: 94.9 fL -- Normal range between ( 79.0 and 94.8 ) Slide Review: No RDW: 13.8 % -- Normal range between ( 11.7 and 14.9 ) MPV: 11.7 fL -- Normal range between ( 9.4 and 12.4 ) 05/08/2020 6:11 AM Eos %: 0.0 % -- Normal range between ( 0.0 and 7.0 ) [place] #: 0.53 K/uL -- Normal range between ( 0.16 and 1.00 ) Eos #: 0.00 x10(3)/uL -- Normal range between ( 0.00 and 0.80 ) [place] %: 3.6 % -- Normal range between ( 3.0 and 9.0 ) Baso %: 0.2 % -- Normal range between ( 0.0 and 1.5 ) Baso #: 0.03 x10(3)/uL -- Normal range between ( 0.00 and 0.20 ) Neut %: 84.8 % -- Normal range between ( 34.0 and 71.0 ) Neut #: 12.59 K/uL -- Normal range between ( 1.56 and 6.13 ) Lymph %: 10.6 % -- Normal range between ( 19.3 and 53.1 ) Lymph #: 1.57 x10(3)/uL -- Normal range between ( 1.00 and 3.90 ) IG#: 0.12 x10(3)/uL -- Normal range between ( 0.00 and 0.05 ) IG%: 0.80 % -- Normal range between ( 0.00 and 0.60 ) General Chemistry 05/11/2020 7:12 AM Creatinine Level: 0.70 mg/dL -- Normal range between ( 0.55 and 1.02 ) Sodium Level: 140 mmol/L -- Normal range between ( 136 and 146 ) Potassium Level: 3.4 mmol/L -- Normal range between ( 3.5 and 5.1 ) Chloride Level: 104 mmol/L -- Normal range between ( 102 and 112 ) Carbon Dioxide Level: 32 mmol/L -- Normal range between ( 21 and 32 ) Anion Gap: 7 -- Normal range between ( 9 and 20 ) Bilirubin Total: 0.7 mg/dL -- Normal range between ( 0.2 and 1.2 ) A/G Ratio: 0.8 -- Normal range between ( 1.1 and 2.5 ) ALT: 169 Units/Liter -- Normal range between ( 13 and 56 ) AST: 52 Units/Liter -- Normal range between ( 5 and 37 ) Globulin: 3.4 Gram/dL -- Normal range between ( 1.5 and 4.5 ) Alk Phos: 188 Units/Liter -- Normal range between ( 27 and 136 ) Bun/Creatinine: 14.3 -- Normal range between ( 8.0 and 20.0 ) Calcium Level: 8.5 mg/dL -- Normal range between ( 8.4 and 10.1 ) eGFR : >60 mL/min/1.73m2 eGFR NonAfrican: >60 mL/min/1.73m2 Glucose Level: 78 mg/dL -- Normal range between ( 74 and 106 ) Blood Urea Nitrogen: 10 mg/dL -- Normal range between ( 7 and 22 ) Protein Total: 6.2 Gram/dL -- Normal range between ( 6.4 and 8.2 ) Albumin Level: 2.8 Gram/dL -- Normal range between ( 3.4 and 5.0 ) 05/10/2020 6:46 AM Lipase Level: 45 Units/Liter -- Normal range between ( 73 and 393 ) 05/09/2020 6:59 AM Bilirubin Direct: 0.3 mg/dL -- Normal range between ( 0.0 and 0.2 ) Coagulation 05/07/2020 9:59 AM INR: 1.0 -- Normal range between ( 0.9 and 1.2 ) PT: 10.3 Second(s) -- Normal range between ( 9.2 and 12.0 ) Patient Name:PASCALE BOOTHE I have received and understand this information and was given the opportunity to ask questions. Patient/Consumer Attorney Name: Patient/Consumer Attorney Signature: Relationship to Patient: Clinician/Hospital Consumer Attorney Signature: Date: documented in this encounter Plan of Treatment Not on file documented as of this encounter Visit Diagnoses Not on filedocumented in this encounter
--- OUTSIDE RECORDS SUMMARY | 2024-10-16 10:25 | XMS_ITS | Encounter Summary ---
Author Organization [employer] ([place], [place], [place], [place]) Address [address] [place] [address] Care Team Providers Care Market Editor Name Role Phone Unavailable Primary Care Provider Unavailabl e Encounter Details Date Type Department Care Team (Late st Contact Info) Description 05/09/2020 Transcribed Document [facility] [place] Family Medicine [address] [place] [address] ProviderRuperto MD [address] [place] [address] Social History Tobacco Use Types [...] Cerner Conversion Note - Ruperto ProviderMD - 05/09/2020 9:32 AM OFFICE ASSOCIATE Patient: PASCALE BOOTHE Age: 34 years Sex: Female : 1985 Associated Diagnoses: None Author: GINO SOLORIO MD Subjective Seen and examined / complains from nausea, abdominal pain did not tolerate lunch last night Her liver function test elevated Review of Systems Nausea No fever no [...] Nebulized Inhalation, RT_Q6H, PRN: Shortness of Breath Phenergan: 12.5 mg, IV Push, Q6H, PRN: Nausea/Vomiting Pravachol: 20 mg, Oral, At Bedtime Roxicodone: [...] IV Push, Q6H, PRN: Other (See Comment) pantoprazole: 40 mg, Oral, Daily propranolol: 40 mg, Oral, Daily Documented Medications Documented diclofenac sodium 75 mg oral delayed release tablet: 0 Refill(s) levothyroxine 175 mcg (0.175 mg) oral tablet: 0 Refill(s) lisinopril 10 mg oral tablet: 0 Refill(s) pravastatin 20 mg oral tablet: 1 Tab, 0 Refill(s) propranolol 40 mg oral tablet: 0 Refill(s) sertraline 100 mg oral tablet: 0 Refill(s), Medications (15) Active Scheduled: (7) heparin 5,000 units/1 mL inj 5,000 Units 1 mL, SubCutaneous, Q8H levothyroxine 175 mcg (0.175 mg) tab 175 mcg 1 Tab, Oral, Daily pantoprazole EC 40 mg tab 40 mg 1 Tab, Oral, Daily piperacillin-tazobactam + NaCl 0.9% 100 mL 3.375 Gram, IV Piggyback, Q6HInt PRAVAstatin sodium 20 mg tab 20 mg 1 Tab, Oral, At Bedtime propranolol 20 mg tab 40 mg 2 Tab, Oral, Daily sertraline 100 mg tab 100 mg 1 Tab, Oral, Daily Continuous: (1) NaCl 0.9% 1,000 mL 1,000 mL, IntraVENous, 75 mL/Hr PRN: (7) acetaminophen 325 mg tab 650 mg 2 [...] tab 10 mg 2 Tab, Oral, Q4H promethazine 25 mg/1 mL inj 12.5 mg 0.5 mL, IV Push, Q6H Problem list: Medical History of obstructive sleep apnea / IMO [id number] / Confirmed, Active Problems (8) Anxiety Depression History of obstructive sleep apnea Hyperlipidemia Hypertension Hypothyroidism, unspecified Migraines Sleep apnea Objective VS/Measurements Vitals Signs (last 24 hrs) Last Charted Minimum Maximum Temp 98.2 (MAY 09 06:15) 97.9 (MAY 08 23:10) 98.6 (MAY 09 03:00) Apical HR L 59 (MAY 09 08:40) L 59 (MAY 09 08:40) 81 (MAY 08 11:29) Mon HR 59 (MAY 09 06:15) 52 (MAY 08 23:10) 77 (MAY 08 11:30) Resp Rate 14 (MAY 09 06:15) 14 (MAY 09 06:15) 18 (MAY 08 11:30) SBP H 142 (MAY 09 06:15) 100 (MAY 08 13:00) H 148 (MAY 09 03:00) DBP 72 (MAY 09 06:15) 63 (MAY 08 13:00) 83 (MAY 08 23:10) MAP 97 (MAY 09 06:15) 75 (MAY 08 13:00) 98 (MAY 08 23:10) SpO2 96 (MAY 09 07:55) L 93 (MAY 08 18:30) 97 (MAY 08 13:00) General: Alert and oriented, Mild distress, Obese. [...] mood & affect. Review / Management MAY 09 06:59 138 103 10 / 98 3.8 31 0.90 \ MAY 09 06:59 \ 11.6 / 10.3 252 / 36.3 \ No Radiology Results Found Results review: Labs (Last four charted values) WBC 10.3 (MAY 08) H 14.8 (MAY 08) H 11.9 (MAY 07) HB 11.6 (MAY 08) 12.3 (MAY 07) 12.0 (MAY 06) HCT 36.3 (MAY 08) 39.0 (MAY 07) 37.2 (MAY 06) Plt 252 (MAY 08) 282 (MAY 07) 246 (MAY 06) Na 138 (MAY 08) 137 (MAY 07) 139 (MAY 06) K 3.8 (MAY 08) 4.1 (MAY 07) 4.2 (MAY 06) Cl 103 (MAY 08) 104 (MAY 07) 105 (MAY 06) CO2 31 (MAY 08) 29 (MAY 07) 28 (MAY 06) BUN 10 (MAY 08) 7 (MAY 07) 8 (MAY 06) Cr 0.90 (MAY 08) 0.80 (MAY 07) 0.70 (MAY 06) Glu R 98 (MAY 08) H 115 (MAY 07) H 107 (MAY 06) Ca 9.0 (MAY 08) 8.8 (MAY 07) 9.0 (MAY 06) PT 10.3 (MAY 06) INR 1.0 (MAY 06) AST H 169 (MAY 08) H 110 (MAY 07) 11 (MAY 06) ALT H 251 (MAY 08) H 104 (MAY 07) 21 (MAR 06) ALK P H 179 (MAY 09) 113 (MAY 08) 81 (MAY 07) T Bili 1.2 (MAY 09) H 1.4 (MAY 08) 0.6 (MAY 07) PTN 7.1 (MAY 09) 7.2 (MAY 08) 7.2 (MAY 07) ALB L 3.3 (MAY 09) L 3.3 (MAY 08) 3.4 (MAY 07) . Impression and Plan #Probable acute cholecystitis CT scan showed large gallstone, distended gallbladder IV fluid IV Zosyn Consult surgery underwent laparoscopic cholecystectomy 05/07 Advance diet per surgery Encourage ambulation Pain control #Right upper quadrant pain Bowel rest Pain control check lipase #Elevated white count, trending down IV antibiotic Monitor Afebrile Recheck in the morning #Elevated LFT worsening No Jaundice, Bili slightly elevated post operative Monitor #Nausea and vomiting Diet as tolerated Antiemetic as needed #Hypertension Patient on lisinopril at home IV hydralazine as needed Monitor blood pressure #Hypothyroidism levothyroxine #Anxiety and depression Resume home medication #Morbid obesity Complicate clinical aspect of care #Obstructive sleep apnea Patient not compliant with CPAP We will order CPAP at night and with sleep #Migraine headache We will resume home medications when list available DVT prophylaxis SCDs Time spent 31 minutes Discussed with patient family at bedside Labs, imaging from outside hospital reviewed Disposition: she is not tolerating diet, nausea, Monitor LFT documented in this encounter Plan of Treatment Not on file documented as of this encounter Visit Diagnoses Not on filedocumented in this encounter
--- OUTSIDE RECORDS SUMMARY | 2024-10-16 10:25 | XMS_ITS | Encounter Summary ---
Author Organization [employer] ([place], [place], [place], [place]) Address [address] [place] [address] Care Team Providers Care Principal Quality Engineer Name Role Phone Unavailable Primary Care Provider Unavailabl e Encounter Details Date Type Department Care Team (Late st Contact Info) Description 05/07/2020 Transcribed Document [facility] [place] Family Medicine [address] [place] [address] ProviderRuperto MD [address] [place] [address] Social History Tobacco Use Types [...] Cerner Conversion Note - Ruperto ProviderMD - 05/07/2020 1:32 PM FOLDER SEAMER [facility] Main OR PACU Summary Primary Physician: BLADIMIR YI MD Finalized Date/Time: 05/07/20 16:46:02 Pt. Name: PASCALE BOOTHE /Sex: 1985 Female Med Rec #: [id number] Physician: KEELY GUZMAN, DO-INT Financial #: [id number] Pt. Type: I Room/Bed: [facility]/ Admit/Disch: 05/07/20 08:50:00 - Institution: [facility] Main OR PACU I Case Times Entry 1 In PACU I 05/07/20 14:51:00 Ready for PACU 05/07/20 16:30:00 Discharge Discharge from PACU 05/07/20 16:30:00 I Last Modified By: TREY NIEVES RN 05/07/20 16:37:16 [facility] Main OR PACU I Case Times Audit 05/07/20 16:37:16 Sand Tester: GUSTAVO Modifier: BRANDEP <+> 1 Ready for PACU Discharge <+> 1 Discharge from PACU I Finalized By: TREY NIEVES, RN Document Signatures Signed By: TREY NIEVES RN 05/07/20 16:46 Electronically signed by [facility] Conversion Reconciliation Specialist Cerner at 06/20/2022 6:14 PM CDT documented in this encounter Plan of Treatment Not on file documented as of this encounter Visit Diagnoses Not on filedocumented in this encounter
--- OUTSIDE RECORDS SUMMARY | 2024-10-16 10:25 | XMS_ITS | Encounter Summary ---
Author Organization [employer] ([place], [place], [place], [place]) Address [address] [place] [address] Care Team Providers Care Sash Sticker Name Role Phone Unavailable Primary Care Provider Unavailabl e Encounter Details Date Type Department Care Team (Late st Contact Info) Description 05/07/2020 Transcribed Document [facility] [place] Family Medicine [address] [place] [address] ProviderRuperto MD [address] [place] [address] Social History Tobacco Use Types [...] - Ruperto ProviderMD - 05/07/2020 1:32 PM INBOUND SALES MANAGER [facility] Main OR IntraOp Summary Primary Physician: BLADIMIR YI MD Finalized Date/Time: 05/08/20 12:38:15 Pt. Name: NATACHA BOOTHE /Sex: 1985 Female Med Rec #: [id number] Physician: KEELY GUZMAN, DO-INT Financial #: [id number] Pt. Type: I Room/Bed: [facility]/ Admit/Disch: 05/07/20 08:50:00 - Institution: [facility] IntraOp Case Attendance Entry 1 Entry 2 Entry 3 Case Attendee BLADIMIR YI MD TAY, JAMES, MD-ELMA DE LEON Role Performed Surgeon/Proceduralist, Anesthesiologist Tempering Kiln Tender, First First Time In 05/07/20 13:17:00 05/07/20 13:17:00 05/07/20 13:17:00 Time Out 05/07/20 14:54:00 05/07/20 14:54:00 05/07/20 14:54:00 Procedure Cholecystectomy Cholecystectomy Cholecystectomy Laparoscopic Laparoscopic Laparoscopic Other Attendee Superficial Wound Closed By: Last Modified By: Fanny Connelly, Fanny Calderon, Fanny Calderon RN 05/07/20 14:57:51 05/07/20 14:57:51 05/07/20 14:57:51 Entry 4 Entry 5 Case Attendee Fanny Connelly, EMILIA MONTOYA Role Performed Floor Representative, First Scrub, First Time In 05/07/20 13:17:00 05/07/20 13:17:00 Time Out 05/07/20 14:54:00 05/07/20 14:54:00 Procedure Cholecystectomy Cholecystectomy Laparoscopic Laparoscopic Other Attendee Superficial Wound Closed By: Last Modified By: Fanny Connelly, Fanny Calderon RN 05/07/20 14:57:51 05/07/20 14:57:51 [facility] IntraOp Case Attendance Audit 05/07/20 14:57:51 Rn Women Services: JORGE Modifier: [email or web address] 1 <+> Time Out 1 <*> Procedure Cholecystectomy Laparoscopic 2 <+> Time In 2 <+> Time Out 2 <*> Procedure Cholecystectomy Laparoscopic 3 <+> Time In 3 <+> Time Out 3 <*> Procedure Cholecystectomy Laparoscopic 4 <+> Time In 4 <+> Time Out 4 <*> Procedure Cholecystectomy Laparoscopic 5 <+> Time In 5 <+> Time Out 5 <*> Procedure Cholecystectomy Laparoscopic [facility] IntraOp Case Times Entry 1 Patient In Room Time 05/07/20 13:17:00 Out Room Time 05/07/20 14:54:00 Anesthesia Start Time 05/07/20 13:17:00 Stop Time 05/07/20 14:54:00 Surgery / Procedure Times Start Time 05/07/20 13:32:00 Stop Time 05/07/20 14:42:00 Last Modified By: Fanny Connelly RN 05/07/20 14:57:23 [facility] IntraOp Case Times Audit 05/07/20 14:57:23 Rn Women Services: SMITHPD Modifier: [email or web address] <+> 1 Out Room Time <+> 1 Stop Time 05/07/20 14:47:00 Rn Women Services: JORGE Modifier: SMITHPD <+> 1 Stop Time [facility] IntraOp Cautery Entry 1 ESU Identification Cautery Type Monopolar ESU ID Number [id number] ID Type Hospital Number Cautery Settings Cut Setting 1 Coag Setting 30 ESU Grounding Pad Ground Pad Type Adult Grounding Pad Site Right thigh Grounding Pad Fanny Connelly RN Applied By Grounding Pad Site Warm, dry and intact Skin Condition Before Cautery Grounding Pad Site Unchanged, Warm, dry Skin Condition and intact After Cautery Last Modified By: Fanny Connelly RN 05/07/20 14:08:47 [facility] IntraOp Communication Entry 1 Communication To Family/Significant other Comment START - FAMILY PRESENT AT DROP OFF TO OR Communication By Fanny Connelly RN Date and Time 05/07/20 13:17:00 Last Modified By: Fanny Connelly RN 05/07/20 14:09:17 [facility] IntraOp Counts Verification Entry 1 Procedure Cholecystectomy Laparoscopic Count Info Count Type Sponge, Sharps, Instrument, Miscellaneous Counts Verification Baseline/pre-procedure Sequence Count Results Not Applicable Counts Performed By Count Performed By EMILIA HERNANDEZ (Scrub) Count Performed By Fanny Connelly RN (RN) Last Modified By: Fanny Connelly RN 05/07/20 14:09:30 [facility] IntraOp Counts Final Entry 1 Procedure Cholecystectomy Laparoscopic Final Count Info Count Type Sponge, Sharps, Miscellaneous Counts Verification Skin Closure/end of Sequence procedure Count Results Correct, surgeon notified Counts Performed By Count Performed By EMILIA HERNANDEZ (Scrub) Count Performed By Fanny Connelly RN (RN) Last Modified By: Fanny Connelly RN 05/07/20 14:48:14 [facility] IntraOp Cultures and Spec Summary Entry 1 Cultrures and Specimens Specimen Ordered: Yes Test(s) Routine/Path-Lab Requested/Final Disposition Last Modified By: Fanny Connelly RN 05/07/20 14:16:41 General Comments: SPECIMEN: A. GALLBLADDER AND CONTENTS [facility] IntraOp Departure from OR Entry 1 Integumentary Assessment Integumentary WDL with patient Assessment WDL specific variances Patient's Normal NEW SURGICAL SITE Integumentary ABDOMEN Variance(s) Transfer/Handoff Transfer to PACU Phase I Handoff Method Bedside/Face to face, Phone call, Online nursing summary Post-op Transport Stretcher/Gurney Via Patient Transport ELMA MCKEON Accompanied by Last Modified By: Fanny Connelly RN 05/07/20 14:17:23 [facility] IntraOp Dressing and Packing Entry 1 Type Dressing Wound Dressing Item Skin Closure Glue Applied By ELMA MCKEON Other Comments DERMABOND Last Modified By: Fanny Connelly RN 05/07/20 14:36:47 [facility] IntraOp Fire Risk Assessment Entry 1 Fire Info Surgical Site or 0- No Incision Above the Xyphoid Open O2 Source 0- No (Mask or Cannula) Available Ignition 1- Yes (ESU, Laser, Light Source) Fire Risk 1 Assessment Score Fire Score Fire Risk Yes Assessment Complete Fire Risk Fanny Connelly RN Assessment Verified By Fire Risk 05/07/20 13:31:00 Assessment Verified Date/Time Fire Risk Standard Fire Yes Safety Precautions Followed Last Modified By: Fanny Connelly RN 05/07/20 14:53:45 [facility] IntraOp Fire Risk Assessment Audit 05/07/20 14:53:45 Rn Women Services: JORGE Modifier: SMITHPD <+> 1 Open O2 Source (Mask or Cannula) 05/07/20 14:48:41 Rn Women Services: JORGE Modifier: SMITHPD <+> 1 Fire Risk Assessment Verified Date/Time [facility] IntraOp General Case Manager Intensive Care Unit 1 Case Information OR OR 08 [facility] Case Level 1 Room Verified Yes Wound Class II - Clean-Contaminated Specialty SN General Anesthesia Type General ASA Class 3 Diagnosis Preop Diagnosis CHOLECYSTITIS Postop Same As Preop No Postop Diagnosis SEE DOCTOR POST OPERATIVE NOTE Last Modified By: Fanny Connelly RN 05/07/20 14:49:57 [facility] IntraOp Intraoperative Assessment Entry 1 Handoff Method Online nursing summary Valid History / Yes Physical in Chart Preoperative Yes Checklist Reviewed/Evaluated Allergies Reviewed Yes Patient is Latex Yes, protocol initiated Sensitive Isolation Not applicable Precautions Noted Level of WDL Consciousness (WDL = Alert, Oriented to Person, Place, and Time) Skin Assessment No Verified Present Upon IVs Arrival to OR Last Modified By: Fanny Connelly RN 05/07/20 14:53:33 [facility] IntraOp Intraoperative Assessment Audit 05/07/20 14:53:33 Rn Women Services: JORGE Modifier: JORGE <+> 1 Level of Consciousness (WDL = Alert, Oriented to Person, Place, and Time) <+> 1 Patient is Latex Sensitive <+> 1 Isolation Precautions Noted [facility] IntraOp Intraoperative Equipment Entry 1 Type Equipment Equipment Equipment Abraham Suction System ID Number [id number] Intraop Monitoring Blood Pressure Non-Invasive BP Device Source Blood Pressure Arm, right upper Location Pulse Oximeter Hand, left Probe Site Antiembolic Devices Antiembolic Devices Sequential compression device, knee high Antiembolic Device Bilateral Location Antiembolic Device [id number] ID Number Antiembolic Device SCD'S ON AND WORKING Setting PRIOR TO IINDUCTION Scopes Photo/Video Documentation Photo No Video No Last Modified By: Fanny Connelly RN 05/07/20 14:54:16 [facility] IntraOp Medication Admin Entry 1 Entry 2 Medication/Irrigant RON IRR NACL 0.9PCT Marcaine 0.5% w/ 1.5L POUR --[id number] epinephrine 1:200,000 30ml vial - [id number] Combo Med List Time Administered Route of IRRIGATION LOCAL Administration Dose Dose 20 Unit of Measure ml Volume Administered By BLADIMIR YI MD TOTTEN, MICHAEL, MD Procedure Irrigation Irrigant Volume In 400 Irrigant Volume Out 400 Last Modified By: Fanny Connelly RN Smith, Patsy D, RN 05/07/20 14:54:49 05/07/20 14:54:49 General Comments: ZOSYN 4.5 G IV ADMIN 1336 PER ANESTHESIA PROVIDER RECORD [facility] IntraOp Patient Positioning Entry 1 Procedure Cholecystectomy Laparoscopic Body Position Lithotomy Left Arm Position Secured on padded arm board Right Arm Position Secured on padded arm board Left Leg Position Secured in Leg Moser Right Leg Position Secured in Leg Moser Feet Uncrossed Yes Pressure Points Yes Checked Positioning Devices Arm Board, Head Rest, Pad, Arm, Foot Board, Safety Strap, Arm(s), Safety Strap, Thighs, Safety Strap, Leg(s), Safety Strap, Chest, Pad, Elbow, Pad, Heel Positioned By Fanny Connelly, DMOENICO, BLADIMIR YI MD, ELMA MCKEON, ARMANDO GRAY MD-ANS Position Verified Positioning Yes Verified by Anesthesia Positioning Yes Verified by Surgeon Last Modified By: Fanny Connelly RN 05/07/20 14:56:58 [facility] IntraOp Patient Positioning Audit 05/07/20 14:56:58 Rn Women Services: YULIYA Modifier: JORGE 1 <*> Procedure Cholecystectomy Laparoscopic 1 <*> Positioning Devices Arm Board, Head Rest, Pad, Arm, Foot Board 1 <*> Positioned By Fanny Connelly RN [facility] IntraOp Sign In Entry 1 Patient, Site, Yes Procedure Identified Surgical Consent Yes Confirmed Relevant Surgical Yes Documents Available Surgical Site N/A Marked by person performing procedure Anesthesia Machine Yes Check Completed Medication Checks Yes Completed Airway Difficult Yes Airway/Aspiration Risk Difficult Yes Airway/Aspiration Intervention Equipment Available Blood Loss Risk Yes Blood Loss No Intervention Equipment Prepared and Ready Blood Identifiers Not applicable Verified Per Policy Hypothermia Risk Yes Warming Measures Yes Taken Last Modified By: Fanny Connelly RN 05/07/20 14:55:30 [facility] IntraOp Sign Out Entry 1 RN Confirmation Surgical Yes Procedure(s) Identified Instrument, Sponge Yes and Sharps Counts Correct/Documented Equipment Problems N/A Documented Specimen Labeled Yes Correctly Urinary Catheter N/A Documented in IView Marie Patient Yes Recovery Concerns Reviewed with Anesthesia Provider, Surgeon and RN Marie Patient Yes Management Concerns Reviewed with Anesthesia Provider, Surgeon and RN Safety Checklist Yes Elements Complete? RN Sign Out Fanny Connelly RN Signature RN Sign Out 05/07/20 14:54:00 Signature Date/Time Plan of Care Outcome - Fire Risk OUTCOME STATEMENT: Goal met Patient is free from injury related to surgical fire Plan of Care Outcome - Pt Positioning OUTCOME STATEMENT: Goal met Absence of signs and symptoms of positioning injury. Plan of Care Outcome - Skin Prep OUTCOME STATEMENT: Goal met Intraoperative care is consistent with measures to prevent infection Plan of Care Outcome - Xray/Images OUTCOME STATEMENT: N/A Absence of observable signs or symptoms of radiation injury Plan of Care Outcome - Counts OUTCOME STATEMENT: Goal met Absence of signs and symptoms of injury related to extraneous objects Last Modified By: Fanny Connelly RN 05/07/20 14:57:27 [facility] IntraOp Sign Out Audit 05/07/20 14:57:27 Rn Women Services: YULIYA Modifier: SMITHPD <+> 1 RN Sign Out Signature Date/Time [facility] IntraOp Skin Prep Entry 1 Procedure Cholecystectomy Laparoscopic Prescribed Yes Pre-Surgical Prep Completed Prep Area ABDOMEN Intraop Prep Prep Agents Chloraprep Prep by Fanny Connelly RN Hair Removal Methods No hair removal performed Last Modified By: Fanny Conenlly RN 05/07/20 14:57:42 [facility] IntraOp Surgical Procedures Entry 1 Procedure Cholecystectomy Laparoscopic Primary Procedure Yes Primary Surgeon BLADIMIR YI MD Start 05/07/20 13:32:00 Stop 05/07/20 14:42:00 Anesthesia Type General Specialty SN General Wound Class II - Clean-Contaminated Last Modified By: Fanny Connelly RN 05/07/20 14:57:49 [facility] IntraOp Surgical Procedures Audit 05/07/20 14:57:49 Rn Women Services: JORGE Modifier: SMITHPD 1 <*> Procedure Cholecystectomy Laparoscopic 05/07/20 14:57:43 Rn Women Services: JORGE Modifier: SMITHPD <+> 1 Stop [facility] IntraOp Temp Regulation Devices Entry 1 Temp Regulation Temperature Warm blankets, Room Regulation Device temperature Temperature Lower body Regulation Site Temperature Fanny Connelly RN Regulation Device Applied by Temperature TEMPERATURE REGULATION Regulation Comment MONITORED AND CONTROLLED BY ANESTHESIA PROVIDER. RICO HUGGER AVAILABLE FOR USE. WARM BLANKETS APPLIED. Last Modified By: Fanny Connelly RN 05/07/20 14:41:41 [facility] IntraOP Time Out Entry 1 Procedure to be Cholecystectomy Performed Laparoscopic Time Out Time Out Pause Time 05/07/20 13:31:00 All activity Yes suspended (unless life threatening emergency) Team Verbally Correct patient Confirms Information identity, Consent form is present and accurate, Agreement on the procedure to be done, Correct patient position, Relevant images/results properly labeled/appropriately displayed, Confirm antibiotics have been administered, Confirm the skin prep has dried, Performed in location of procedure after prepped/draped, Performed before each procedure if multiple procedures Antibiotic Yes Prophylaxis Administered Or In Progress Within the Last 60 Minutes Beta Wilfredo N/A Administered Venous Yes Thromboembolism Prophylaxis Required Anticipated Critical Events Surgeon None expected Anesthesia Provider None expected Nursing Assures Sterility of instruments Essential Imaging N/A Labeled and Displayed Last Modified By: Fanny Connelly RN 05/07/20 14:12:39 Case Comments <None> Finalized By: EMILIA HERNANDEZ Document Signatures Signed By: Fanny Connelly RN 05/07/20 14:59 EMILIA HERNANDEZ 05/08/20 12:35 EMILIA HERNANDEZ 05/08/20 12:38 Unfinalized History Date/Time Username Reason for Unfinalizing Freetext Reason for Unfinalizing 05/08/20 12:34 WATTSDR Correct Billing 05/08/20 12:36 WATTSDR Correct Billing documented in this encounter Plan of Treatment Not on file documented as of this encounter Visit Diagnoses Not on filedocumented in this encounter
--- OUTSIDE RECORDS SUMMARY | 2024-10-16 10:25 | XMS_ITS | Encounter Summary ---
Author Organization [employer] ([place], [place], [place], [place]) Address [address] [place] [address] Care Team Providers Care Field Cane Scale Clerk Name Role Phone Unavailable Primary Care Provider Unavailabl e Encounter Details Date Type Department Care Team (Late st Contact Info) Description 05/11/2020 Transcribed Document [facility] [place] [address] [place] [address] ProviderRuperto MD [address] [place] [address] Social History Tobacco Use Types [...] Conversion Note - Historical ProviderMD - 05/11/2020 10:03 AM ENVELOPE MAKER UM Authorization Entered On: 05/11/2020 10:03 EST Performed On: 05/11/2020 10:03 EST by Juliana Fontanez Rn-Utilization Review Primary Insurance Authorization Authorization and Policy Numbers : Insurance 1 Health Plan: [employer] Policy Number: [id number] Authorization Number: Insurance Primary Name : [employer] Policy Number: [id number] Authorization Status-Primary : Awaiting callback Authorized Service Begin Date-Primary : 05/07/2020 EST Historical Authorization Comments-Primary : Comment 1: Faxed facesheet and orders to [employer] for Inpt notification. (DEL HARRISON Rn-Utilization Review 05/08/2020 16:07) Juliana Fontanez Rn-Utilization Review - 05/11/2020 10:03 EST Electronically signed by [facility], [facility] Conversion Telephonic Case Manager Cerner at 06/20/2022 6:22 PM CDT documented in this encounter Plan of Treatment Not on file documented as of this encounter Visit Diagnoses Not on filedocumented in this encounter
--- OUTSIDE RECORDS SUMMARY | 2024-10-16 10:25 | XMS_ITS | Encounter Summary ---
Author Organization [employer] ([place], [place], [place], [place]) Address [address] [place] [address] Care Team Providers Care Cut And Print Machine Operator Name Role Phone Unavailable Primary Care Provider Unavailabl e Encounter Details Date Type Department Care Team (Late st Contact Info) Description 05/07/2020 Transcribed Document [facility] [place] [facility] [place] [address] ProviderRuperto MD [address] [place] [address] Social History Tobacco Use Types [...] [employer]ner Conversion Note - Historical ProviderMD - 05/07/2020 3:04 PM ACIDIZER HELPER Patient: PASCALE DICKSON Age: 34 Years Sex: Female : 1985 *Operation Laparoscopic cholecystectomy Indication for Surgery 34-year-old female with fairly sudden onset of abdominal pain and nausea. Imaging shows a large gallstone in the neck of the gallbladder with inflammation. Laparoscopic cholecystectomy was offered. *Preoperative Diagnosis Acute cholecystitis *Postoperative Diagnosis same *Surgeon(s) Primary Surgeon BLADIMIR YI MD (Surgeon/Proceduralist, ) MORGAN Walters *Procedure Narrative She was brought to the operating room and was pleased on the table in supine position. General anesthesia was induced. Her abdomen was prepped and draped in the usual fashion. Timeout was called to identify the patient and procedure. A supraumbilical incision was made and was dissected down to the fascia. A towel clamp was used to elevate the umbilical stalk and a Veress needle was inserted. There was normal aspiration and saline drop test. The abdomen was insufflated to 15 mmHg. A 5 mm Optiview port was then placed through this incision under direct vision. There was no injury from entry. Laparoscopy showed no other intra-abdominal pathology. A 12 mm subxiphoid port and two additional 5 mm ports were placed in the right upper quadrant. The gallbladder was retracted cephalad and toward the right. It had a thickened inflamed wall consistent with acute cholecystitis. There were loose omental adhesions to the gallbladder that were stripped down area peritoneum and some inflamed tissue was taken off the cystic structures. There was a massive 2-3 cm gallstone in the neck of the gallbladder. The gallbladder was quite elongated likely from chronic obstruction. There was quite a bit of edema of the surrounding cystic structures. Eventually the cystic structures were dissected and the gallbladder was taken off the liver bed posteriorly. I could clearly see the cystic duct and cystic artery entering the gallbladder. Despite the very large gallstone in the neck of the gallbladder at the cystic duct was fairly normal in diameter but was inflamed. The cystic duct was clipped and divided between three large hemo-locks and the cystic artery was clipped and divided between standard 5 mm clips. The gallbladder was then taken off the liver bed with cautery and was extracted through the subxiphoid port site using an Endo Catch bag. Repeat laparoscopy showed the clips in good position. The liver surface was cauterized judiciously to improve hemostasis. The right upper quadrant was gently irrigated and suctioned and was clean. The subxiphoid port site was closed at the level of fascia with a [id number] 0 Vicryl using the suture passer. Ports were removed under direct vision and pneumoperitoneum was released. Skin was closed with subcuticular 4-0 Monocryl and Dermabond was applied. She tolerated the procedure well and was brought to the recovery area in stable condition. All sponge, needle, instrument counts were correct. Drains/Packs Used None Anesthesia ARMANDO Mathew MD-ANS (Anesthesiologist) *Estimated Blood Loss 20cc *Findings 2-3 cm gallstone in the neck of the gallbladder with acute cholecystitis *Specimen(s) gallbladder Complications none immediate Date of Service Date/Time of Service SN - Proc - Start Time: 05/07/20 13:32:00 (05/07/20 14:42:09) documented in this encounter Plan of Treatment Not on file documented as of this encounter Visit Diagnoses Not on filedocumented in this encounter
--- OUTSIDE RECORDS SUMMARY | 2024-10-16 10:25 | XMS_ITS | Encounter Summary ---
Author Organization [employer] ([place], [place], [place], [place]) Address [address] [place] [address] Care Team Providers Care Chain Splitter Name Role Phone Unavailable Primary Care Provider Unavailabl e Encounter Details Date Type Department Care Team (Late st Contact Info) Description 05/10/2020 Transcribed Document [facility] [place] Family Medicine [address] [place] [address] ProviderRuperto MD [address] [place] [address] Social History Tobacco Use Types [...] Conversion Note - Historical ProviderMD - 05/10/2020 5:00 PM REACHER Chart Check - Review Order Profile Entered On: 05/10/2020 18:21 EST Performed On: 05/10/2020 17:00 EST by Levar Luna, RN Chart Check All Active Orders Reviewed : Yes Levar Luna RN - 05/10/2020 18:21 EST Electronically signed by Jimmy [facility] Conversion Medical Coding Instructor Cerner at 06/20/2022 6:24 PM CDT documented in this encounter Plan of Treatment Not on file documented as of this encounter Visit Diagnoses Not on filedocumented in this encounter
--- OUTSIDE RECORDS SUMMARY | 2024-10-16 10:25 | XMS_ITS | Encounter Summary ---
Author Organization [employer] ([place], [place], [place], [place]) Address [address] [place] [address] Care Team Providers Care Bark Scaler Name Role Phone Unavailable Primary Care Provider Unavailabl e Encounter Details Date Type Department Care Team (Late st Contact Info) Description 05/07/2020 Transcribed Document [facility] [place] Family Medicine [address] [place] [address] ProviderRuperto MD [address] [place] [address] Social History Tobacco Use Types [...] Conversion Note - Historical ProviderMD - 05/07/2020 9:00 AM UROLOGY SURGEON Consult Phone Call Documentation Entered On: 05/08/2020 9:50 EST Performed On: 05/07/2020 9:00 EST by LAVERNE HENRY Phone Call for Consults Consult Reason : Cholecystitis Consult, Additional Information : Was called on 05/07 LAVERNE HENRY - 05/08/2020 9:01 EST documented in this encounter Plan of Treatment Not on file documented as of this encounter Visit Diagnoses Not on filedocumented in this encounter
--- OUTSIDE RECORDS SUMMARY | 2024-10-16 10:25 | XMS_ITS | Encounter Summary ---
Author Organization [employer] ([place], [place], [place], [place]) Address [address] [place] [address] Care Team Providers Care Space Operations Name Role Phone Unavailable Primary Care Provider Unavailabl e Encounter Details Date Type Department Care Team (Late st Contact Info) Description 05/11/2020 Transcribed Document [facility] [place] Family Medicine [address] [place] [address] ProviderRuperto MD [address] [place] [address] Social History Tobacco Use Types [...] Conversion Note - Historical ProviderMD - 05/11/2020 5:00 AM PRINCIPAL LIBRARIAN Chart Check - Review Order Profile Entered On: 05/11/2020 4:16 EST Performed On: 05/11/2020 5:00 EST by Maria Hall RN Chart Check Powerplans Initiated/Discontinued as Appropriate : Yes All Active Orders Reviewed : Yes Maria Hall RN - 05/11/2020 4:16 EST Electronically signed by Jimmy [facility] Conversion Professional Athlete Venkata at 06/20/2022 6:26 PM CDT documented in this encounter Plan of Treatment Not on file documented as of this encounter Visit Diagnoses Not on filedocumented in this encounter
--- OUTSIDE RECORDS SUMMARY | 2024-10-16 10:25 | XMS_ITS | Encounter Summary ---
Author Organization [employer] ([place], [place], [place], [place]) Address [address] [place] [address] Care Team Providers Care Professional Builder Name Role Phone Unavailable Primary Care Provider Unavailabl e Encounter Details Date Type Department Care Team (Late st Contact Info) Description 05/07/2020 Transcribed Document [facility] [place] [facility] [place] [address] ProviderRuperto MD [address] [place] [address] Social History Tobacco Use Types [...] Conversion Note - Historical ProviderMD - 05/07/2020 9:37 AM NURSE INFECTION CONTROL Nutrition Assessment Entered On: 05/09/2020 13:15 EST Performed On: 05/09/2020 13:14 EST by Tere Joy Dietitian Nutrition Assessment Current Nutrition Regimen Comment : 05/09: High BMI documentation. Pt is a 34 y/o female admitted for abd pain with nausea and vomiting. CT scan showed a large gallstone, distended gallbladder, and hepatomegaly. Pt had a lap-anushka on 05/07. She had several episodes of emesis yesterday. Surgery following. Pt is currently on a full liquid diet. Pt stated that her abd pain is improving and she denied any recent wt changes. She did not have any nutrition education questions. RD assistent with dinner order. Will continue to follow. Dx: acute cholecystitis PMH: hypothyroidism, HTN, HLD Labs: AST 169, ALT 251, lipase 39 Meds: synthroid, PPI, abx, PRN pain, PRN Zofran/Phenergan, IVF Diet: full liquids Intakes: 45% x 3 meals GI: hypoactive BS, LBM 3/7- diarrhea noted, c/o- n/v Skin: incision to abd Ht: 5'6 Wt: 350#/159.1kg (admit) BMI: 56.6 Tere Joy Dietitian - 05/09/2020 15:49 EST Nutrition Assessment Reason : Automatic referral Tere Joy Dietitian - 05/09/2020 13:14 EST Teaching/Learning Assessment Barriers To Learning : None evident Learning Style Preferences Patient : Demonstration, Verbal explanation Learning Style Preferences Family : None Tere Joy Dietitian - 05/09/2020 15:49 EST Nutrition Diagnoses Oral or Nutrition Support Intake : Inadequate oral intake Oral or Nutr Support Intake Related To : abd pain with n/v Oral or Nutr Support Intake Evidenced by : 45% intake x 2 meals, need for full liquid diet Oral or Nutrition Support Intake Status : Active Weight : Overweight/Obese Weight Related to : lifestyle Weight As Evidenced by : BMI of 56.6 Weight Status : Active Tere Joy Dietitian - 05/09/2020 15:49 EST Nutrition Interventions Meals and Snacks : Full liquid diet Tere Joy Dietitian - 05/09/2020 15:49 EST Monitoring/Evaluation Food Intake : Amount of food Weight Status : Weight Maintanence Gastrointestinal Function : Bowel Function Tere Joy Dietitian - 05/09/2020 15:49 EST Nutrition Recommendations Dietitian Recommendations : 1. Continue full liquid diet as tolerated and advance per surgery Goal: tolerate diet advancement; adequate intake >50% of meals 2. Monitor weights 1-2x weekly Goal: prevent uninentional wt changes; once feasible, promote a gradual wt loss towards a healthy BMI of 19-25 Moderate nutrition risk Tere Joy Dietitian - 05/09/2020 15:49 EST Electronically signed by Fran Marquez Conversion Buildings And Grounds Supervisor Cerner at 06/20/2022 6:20 PM CDT documented in this encounter Plan of Treatment Not on file documented as of this encounter Visit Diagnoses Not on filedocumented in this encounter
--- OUTSIDE RECORDS SUMMARY | 2024-10-16 10:25 | XMS_ITS | Encounter Summary ---
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 documented in this encounter Plan of Treatment Not on file documented as of this encounter Visit Diagnoses Not on filedocumented in this encounter
--- OUTSIDE RECORDS SUMMARY | 2024-10-16 10:25 | XMS_ITS | Encounter Summary ---
Author Organization [employer] ([place], [place], [place], [place]) Address [address] [place] [address] Care Team Providers Care Concrete Fence Builder Name Role Phone Unavailable Primary Care Provider Unavailabl e Encounter Details Date Type Department Care Team (Late st Contact Info) Description 05/11/2020 Transcribed Document [facility] [place] [address] [place] [address] ProviderRuperto MD [address] [place] [address] Social History Tobacco Use Types [...] Conversion Note - Historical ProviderMD - 05/11/2020 10:07 AM MERCHANDISER RETAIL REPRESENTATIVE UM Authorization Entered On: 05/11/2020 10:07 EST Performed On: 05/11/2020 10:07 EST by Juliana Fontanez Rn-Utilization Review Primary Insurance Authorization Authorization and Policy Numbers : Insurance 1 Health Plan: [employer] Policy Number: [id number] Authorization Number: Insurance Primary Name : [employer] Policy Number: [id number] Authorization Status-Primary : Awaiting callback Authorized Service Begin Date-Primary : 05/07/2020 EST Authorization Comments-Primary : no updated information on website Historical Authorization Comments-Primary : Comment 1: Faxed facesheet and orders to [employer] for Inpt notification. (DEL HARRISON Rn-Utilization Review 05/08/2020 16:07) Juliana Fontanez Rn-Utilization Review - 05/11/2020 10:07 EST documented in this encounter Plan of Treatment Not on file documented as of this encounter Visit Diagnoses Not on filedocumented in this encounter
--- OUTSIDE RECORDS SUMMARY | 2024-10-16 10:25 | XMS_ITS | Encounter Summary ---
Author Organization [employer] ([place], [place], [place], [place]) Address [address] [place] [address] Care Team Providers Care Front Office Manager Name Role Phone Unavailable Primary Care Provider Unavailabl e Encounter Details Date Type Department Care Team (Late st Contact Info) Description 05/09/2020 Transcribed Document [facility] [place] [address] [place] [address] ProviderRuperto MD [address] [place] [address] Social History Tobacco Use Types [...] Conversion Note - Historical ProviderMD - 05/09/2020 5:00 AM DOG AND CAT FOOD COOK Chart Check - Review Order Profile Entered On: 05/09/2020 4:54 EST Performed On: 05/09/2020 5:00 EST by Abeba Henderson, RN Chart Check Powerplans Initiated/Discontinued as Appropriate : Yes All Active Orders Reviewed : Yes Abeba Henderson, RN - 05/09/2020 4:54 EST Electronically signed by Jimmy [facility] Conversion Health Unit Coordinator Venkata at 06/20/2022 6:15 PM CDT documented in this encounter Plan of Treatment Not on file documented as of this encounter Visit Diagnoses Not on filedocumented in this encounter
--- OUTSIDE RECORDS SUMMARY | 2024-10-16 10:25 | XMS_ITS | Encounter Summary ---
Author Organization [employer] ([place], [place], [place], [place]) Address [address] [place] [address] Care Team Providers Care Hide Salter Name Role Phone Unavailable Primary Care Provider Unavailabl e Encounter Details Date Type Department Care Team (Late st Contact Info) Description 05/11/2020 Transcribed Document [facility] [place] [address] [place] [address] ProviderRuperto MD [address] [place] [address] Social History Tobacco Use Types [...] Conversion Note - Historical ProviderMD - 05/11/2020 2:00 AM LABORATORY COORDINATOR Geophysical Data Technician Details Entered On: 05/11/2020 4:15 EST Performed On: 05/11/2020 2:00 EST by Maria Hall RN Order Details Transport Mode Order Detail : Wheelchair Isolation Precautions Order Detail : Standard Precautions Order Detail : 1 Lift/Transfer : Minimal Central Line Order Detail : No Room Service : Appropriate Arterial Line : No Patient Needs Meds Crushed/Liquid : No Maria Hall RN - 05/11/2020 4:15 EST documented in this encounter Plan of Treatment Not on file documented as of this encounter Visit Diagnoses Not on filedocumented in this encounter
--- OUTSIDE RECORDS SUMMARY | 2024-10-16 10:25 | XMS_ITS | Encounter Summary ---
Author Organization [employer] ([place], [place], [place], [place]) Address [address] [place] [address] Care Team Providers Care Rehabilitation Medicine Physician Name Role Phone Unavailable Primary Care Provider Unavailabl e Encounter Details Date Type Department Care Team (Late st Contact Info) Description 05/07/2020 Transcribed Document [facility] [place] [facility] [place] [address] ProviderRuperto MD [address] [place] [address] Social History Tobacco Use Types [...] Conversion Note - Ruperto ProviderMD - 05/07/2020 9:16 AM FACULTY CRIMINAL JUSTICE Patient: PASCALE BOOTHE Age: 34 Years Sex: Female : 1985 Chief Complaint Abdominal pain, nausea and vomiting Primary Care Provider JAYDON GARY, RADIOLOGY TEACHER-[facility] History of Present Illness This is 34 years old female patient past medical history of hypothyroidism, hypertension, hyperlipidemia, migraine headache, obstructive sleep apnea not compliant with CPAP, morbid obesity, patient was transferred from [facility] for acute cholecystitis. Patient presented with right upper quadrant pain started night, 10/10 in severity, sharp in nature, continuous, and she had with nausea and vomiting, she denies fever or chills, she denies shortness of breath or chest pain. Initial evaluation at outside facility white count 12.2 sodium 135 potassium 5.4 lipase 54 amylase [address] scan abdomen pelvis revealed large gallstone of the gallbladder neck with distended gallbladder, hepatomegaly. Case was discussed with surgery on-call recommend patient to be transferred to our facility. Review of Systems Constitutional: [No fevers, chills, sweats] Eye: [No recent visual problems, eye discharge, eye pain, redness] HEENT: [No ear pain, nasal congestion, sore throat, voice changes] Respiratory: [No shortness of breath, cough, pain on breathing, sputum production] Cardiovascular: [No Chest pain, palpitations, syncope, shortness of breath while laying flat] Gastrointestinal: [ Nausea, vomiting, no diarrhea, constipation] Genitourinary: [No hematuria, dysuria, incontinence, lesions on genitalia] Nick/Lymph: [Negative for bruising tendency, swollen lymph glands, nosebleeds, history of anticoagulation] Endocrine: [Negative for excessive thirst, excessive hunger, excessive urination, heat or cold intolerance] Musculoskeletal: [No back pain, neck pain, joint pain, muscle pain, decreased range of motion] Integumentary: [No rash, pruritus, abrasions, lesions] Neurologic: [No weakness, numbness, frequent headaches, tremors, blackouts] Psychiatric: [No anxiety, depression, mood changes, hallucinations] Vital Signs Oxygen Settings (Last) No qualifying data available. Physical Exam General: [Alert and oriented, obese, mild distress]. Neurologic: [Awake, alert, and oriented X3, CN II-XII intact]. Eye: [EOMI, normal conjunctiva]. HENT: [Normocephalic, clear tympanic membranes, normal hearing, moist oral mucosa, no scleral icterus, no sinus tenderness]. Neck: [Supple, non-tender, no carotid bruits, no JVD, no lymphadenopathy]. Lungs: [Clear to auscultation and percussion, non-labored respiration]. Heart: [Normal rate, regular rhythm, no murmur, gallop or edema]. Abdomen: [Soft, Right upper quadrant tenderness, , non-distended, normal bowel sounds, no masses]. Musculoskeletal: [Normal range of motion and strength, no tenderness or swelling]. Skin: [Skin is warm, dry and pink, no rashes or lesions]. Psychiatric: [Cooperative, appropriate mood and affect]. Assessment/Plan #Probable acute cholecystitis CT scan showed large gallstone, distended gallbladder Keep patient n.p.o. IV fluid IV Zosyn Consult surgery #Right upper quadrant pain Bowel rest Pain control #Elevated white count IV antibiotic Monitor #Nausea and vomiting Keep patient n.p.o. Antiemetic as needed #Hypertension Patient on lisinopril at home IV hydralazine as needed Monitor blood pressure #Hypothyroidism Resume levothyroxine #Morbid obesity Complicate clinical aspect of care #Obstructive sleep apnea Patient not compliant with CPAP We will order CPAP at night and with sleep #Migraine headache We will resume home medications when list available DVT prophylaxis SCDs Time spent 55 minutes Discussed with patient family at bedside Labs, imaging from outside hospital reviewed VTE Prophylaxis - Medical No VTE Prophylaxis Orders. Problem List/Past Medical History Ongoing No qualifying data Historical No qualifying data hypothyroidism, hypertension, hyperlipidemia, migraine headache, obstructive sleep apnea not compliant with CPAP, morbid obesity Procedure/Surgical History C Section No qualifying data available Allergies No active allergies Social History Denies smoking, denies drinking alcohol or illicit drug abuse Family History History of diabetes Diagnostic Results Imaging report from outside hospital reviewed Lab Results Labs from outside hospital reviewed Additional Documentation Code Status Start: 05/07/20 9:02:00 EST, Full Code, Continuous Order documented in this encounter Plan of Treatment Not on file documented as of this encounter Visit Diagnoses Not on filedocumented in this encounter
--- OUTSIDE RECORDS SUMMARY | 2024-10-16 10:25 | XMS_ITS | Encounter Summary ---
Author Organization [employer] ([place], [place], [place], [place]) Address [address] [place] [address] Care Team Providers Care Skein Winder Name Role Phone Unavailable Primary Care Provider Unavailabl e Encounter Details Date Type Department Care Team (Late st Contact Info) Description 05/10/2020 Transcribed Document [facility] [place] [address] [place] [address] ProviderRuperto MD [address] [place] [address] Social History Tobacco Use Types [...] Note - Historical ProviderMD - 05/10/2020 5:00 AM LOAD PLANNER Chart Check - Review Order Profile Entered On: 05/10/2020 4:16 EST Performed On: 05/10/2020 5:00 EST by Abeba Henderson, RN Chart Check Powerplans Initiated/Discontinued as Appropriate : Yes All Active Orders Reviewed : Yes Abeba Henderson, RN - 05/10/2020 4:16 EST Electronically signed by Jimmy [facility] Conversion Real Estate Agency Principal Venkata at 06/20/2022 6:13 PM CDT documented in this encounter Plan of Treatment Not on file documented as of this encounter Visit Diagnoses Not on filedocumented in this encounter
--- OUTSIDE RECORDS SUMMARY | 2024-10-16 10:25 | XMS_ITS | Encounter Summary ---
Author Organization [employer] ([place], [place], [place], [place]) Address [address] [place] [address] Care Team Providers Care Assistant Manager Name Role Phone Unavailable Primary Care Provider Unavailabl e Encounter Details Date Type Department Care Team (Late st Contact Info) Description 05/11/2020 Transcribed Document [facility] [place] [facility] [place] [address] ProviderRuperto MD [address] [place] [address] Social History Tobacco Use Types [...] Conversion Note - Historical ProviderMD - 05/11/2020 12:59 PM MICRO PHOTOGRAPHER Patient: PASCALE BOOTHE Age: 34 Years Sex: Female : 1985 Assessment/Plan Postop day 4 laparoscopic cholecystectomy for acute cholecystitis. Doing well. Tolerating regular diet. Ambulating Ok to discharge. Can plan for follow-up in two weeks. Should avoid lifting more than 10 pounds. Okay to shower when home. I sent oxycodone and docusate to her pharmacy VTE Prophylaxis - Medical Heparin 5,000 Units, SubCutaneous, Inj, Q8H, Routine, Start 05/07/20 14:00:00 EST, 05/07/20 11:02:00 EST (BLADIMIR YI) Subjective no events tolerating regular diet Vital Signs T: 36.9 ??C TMIN: 36.8 ??C TMAX: 36.9 ??C HR: 56(Monitored) RR: 18 BP: 124/70 SpO2: 93% Oxygen Settings (Last) Oxygen Therapy Mode: Room air (05/11/20 10:48:00) Oxygen Flow Rate: 2 Liter/Min (05/07/20 20:19:00) Intake & Output Totals Last 24 Hours (7a-7a) Input Total: 425.86 mL Output Total: 0 mL Balance: 425.86 mL Physical Exam RRR NWOB Abd soft, appropriately tender, incisions no erythema Medications Dilaudid, 0.5 mg= 0.5 mL, IV [...] 10 mg= 2 Tab, Oral, Q4H, PRN Synthroid, 175 mcg= 1 Tab, Oral, Daily Tylenol, 650 mg= 2 Tab, Oral, Q4H, PRN Zofran, 4 mg= 2 mL, IV Push, Q4H, PRN Zoloft, 100 mg= 1 Tab, Oral, Daily Zosyn + Sodium Chloride 0.9% intravenous solution 100 mL Lab Results Test Name Test Result Date/Time Sodium Level 140 mmol/L 05/11/2020 07:12 EST Potassium Level 3.4 mmol/L (Low) 05/11/2020 07:12 EST Chloride Level 104 mmol/L 05/11/2020 07:12 EST Carbon Dioxide Level 32 mmol/L 05/11/2020 07:12 EST Anion Gap 7 (Low) 05/11/2020 07:12 EST Glucose Level 78 mg/dL 05/11/2020 07:12 EST Blood Urea Nitrogen 10 mg/dL 05/11/2020 07:12 EST Creatinine Level 0.70 mg/dL 05/11/2020 07:12 EST eGFR >60 mL/min/1.73m2 05/11/2020 07:12 EST eGFR NonAfrican >60 mL/min/1.73m2 05/11/2020 07:12 EST Bun/Creatinine 14.3 05/11/2020 07:12 EST Calcium Level 8.5 mg/dL 05/11/2020 07:12 EST Protein Total 6.2 Gram/dL (Low) 05/11/2020 07:12 EST Albumin Level 2.8 Gram/dL (Low) 05/11/2020 07:12 EST Globulin 3.4 Gram/dL 05/11/2020 07:12 EST A/G Ratio 0.8 (Low) 05/11/2020 07:12 EST Bilirubin Total 0.7 mg/dL 05/11/2020 07:12 EST Alk Phos 188 Units/Liter (High) 05/11/2020 07:12 EST AST 52 Units/Liter (High) 05/11/2020 07:12 EST ALT 169 Units/Liter (High) 05/11/2020 07:12 EST WBC 8.1 K/uL 05/11/2020 07:12 EST RBC 3.73 Million/uL (Low) 05/11/2020 07:12 EST Hgb 11.0 g/dL (Low) 05/11/2020 07:12 EST Hct 35.4 % 05/11/2020 07:12 EST MCV 94.9 fL (High) 05/11/2020 07:12 EST MCH 29.5 pg 05/11/2020 07:12 EST MCHC 31.1 Gram/dL (Low) 05/11/2020 07:12 EST Platelet Count 190 K/uL 05/11/2020 07:12 EST MPV 11.7 fL 05/11/2020 07:12 EST RDW 13.8 % 05/11/2020 07:12 EST Slide Review No 05/11/2020 07:12 EST Electronically signed by [facility] Conversion Implementation Director Cerner at 06/20/2022 6:20 PM CDT documented in this encounter Plan of Treatment Not on file documented as of this encounter Visit Diagnoses Not on filedocumented in this encounter
--- OUTSIDE RECORDS SUMMARY | 2024-10-16 10:25 | XMS_ITS | Encounter Summary ---
Author Organization [employer] ([place], [place], [place], [place]) Address [address] [place] [address] Care Team Providers Care Glass Silverer Name Role Phone Unavailable Primary Care Provider Unavailabl e Encounter Details Date Type Department Care Team (Late st Contact Info) Description 05/11/[address] [facility] [place] Family [place] [address] [place] [address] ProviderRuperto MD [address] [place] [address] Social History Tobacco Use Types [...] Conversion Note - Historical ProviderMD - 05/11/2020 9:18 AM MANAGER SEMICONDUCTOR Stroke/Warfarin Instructions Entered On: 05/11/2020 9:18 EST Performed On: 05/11/2020 9:18 EST by Sumaya De Oliveira RN Stroke/Warfarin Instructions Stroke/TIA Discharge Ins : Open Warfarin Discharge Ins : N/A Sumaya De Oliveira RN - 05/11/2020 9:18 EST Stroke/TIA Discharge Instructions Individualized Stroke Risk Factors *Q : Hypertension/High blood pressure Stroke Education Handouts Given *Q : Yes Sumaya De Oliveira RN - 05/11/2020 9:18 EST Stroke Education Materials Given-Grid Activation of EMS *Q : Verbalizes understanding Follow-up Care After Discharge *Q : Verbalizes understanding Medications prescribed at DC *Q : Verbalizes understanding Risk Factors for Stroke *Q : Verbalizes understanding Warning S&S of Stroke *Q : Verbalizes understanding Sumaya De Oliveira RN - 05/11/2020 9:18 EST Stroke/TIA Signs/Symptoms to Report Immediately : Sudden onset difficulty speaking, Sudden onset difficulty understanding speech, Sudden onset change in vision, Sudden onset weakness particulary on one side of the body, Sudden onset numbness/tingling, Sudden severe headache, Sudden dizziness or trouble with gait, Call : EMS activation is crucial My LDL Level: : LDL Level No qualifying data available. Sumaya De Oliveira RN - 05/11/2020 9:18 EST Electronically signed by Jimmy [facility] Conversion Process Safety Engineer Cerner at 06/20/2022 6:13 PM CDT documented in this encounter Plan of Treatment Not on file documented as of this encounter Visit Diagnoses Not on filedocumented in this encounter
--- OUTSIDE RECORDS SUMMARY | 2024-10-16 10:25 | XMS_ITS | Encounter Summary ---
Author Organization [employer] ([place], [place], [place], [place]) Address [address] [place] [address] Care Team Providers Care Corporate Claims Examiner Name Role Phone Unavailable Primary Care Provider Unavailabl e Encounter Details Date Type Department Care Team (Late st Contact Info) Description 05/11/2020 Transcribed Document [facility] [place] Family Medicine [facility] [place] [address] ProviderRuperto MD [address] [place] [address] Social History Tobacco Use Types [...] Conversion Note - Ruperto ProviderMD - 05/11/2020 8:53 AM RESIDENTIAL CARE FACILITY MANAGER [address] [place] [address] Patient Copy Patient Information: Name: PASCALE BOOTHE Current Date: 05/11/2020 08:53:28 : 1985 Patient Address: [facility] [address] Patient Attending Physician: GINO SOLORIO MD Primary Care Provider: JAYDON GARY, AIRCRAFT INSTRUMENT REPAIRER-KARLA Primary Care Provider Discharge Diagnosis: Abdominal pain Weight on Admission: 350 lb, 0 oz Comment: Follow-up Instructions: With: Address: When: Follow up with specialist Within 1 week Comments: Surgery With: Address: When: Follow up with primary care provider Within 2 to 3 days Discharge Instructions: Immunizations Documented During Stay: No Immunizations Found Heart Failure Discharge Instructions (if any): Stroke Related Discharge Instructions (if any): Warfarin Related Discharge Instructions (if any): Final Medication List: [facility], [address], [place] [id number], [phone] docusate (Colace 100 mg oral capsule) 1 Capsule(s) Oral Every Day. Refills: 0. oxyCODONE (Roxicodone 5 mg oral tablet) 1 Tablet(s) Oral Every 4 Hours as needed Pain (Moderate 4-6). Refills: 0. Other Medications PRAVAstatin (pravastatin 20 mg oral tablet) 1 Tablet(s). diclofenac (diclofenac sodium 75 mg oral delayed release tablet) levothyroxine (levothyroxine 175 mcg (0.175 mg) oral tablet) lisinopril (lisinopril 10 mg oral tablet) propranolol (propranolol 40 mg oral tablet) sertraline (sertraline 100 mg oral tablet) Patient Allergies: Lortab; sulfa drugs; Latex Medication Instructions: Take your medications faithfully. Do NOT skip [...] cramping, rapid heartbeat, difficulty sleeping, and nervousness. CIGARETTE SMOKING: The facts are clear, cigarette smoking will shorten your life. Smoking can cause many illnesses along the way. As a healthcare provider, we recommend that you stop smoking. Assistance with quitting is available by contacting 8-285-JWZS-NOW. This is a free resource providing counseling, support, and referral. Or you may contact your personal physician. 4 WAYS TO GET AHEAD OF SEPSIS SEPSIS is a MEDICAL EMERGENCY. Time matters! Infections put you and your family at risk for a life-threatening condition called sepsis. Sepsis is the body???s extreme response to an infection. It is life-threatening, and without timely treatment, sepsis can rapidly lead to tissue damage, organ failure, and . Sepsis happens when an infection you already have???in your skin, lungs, urinary tract or somewhere else???triggers a chain reaction throughout your body. 1 [...] sepsis or if you have an infection that???s not getting better or is getting worse. To learn more about sepsis and how to prevent infections, visit www.cdc.gov/sepsis. STROKE is an EMERGENCY Every Minute Counts ACT F.A.S.T! FACE ?? Facial droop ?? Uneven smile ARM ?? Arm numbness ?? Arm weakness SPEECH ?? Slurred speech ?? Difficulty speaking or understanding TIME ?? Call 911 and get to the hospital immediately Have the ambulance go to the nearest stroke center. STROKE Risk Factors High blood pressure High cholesterol Heart Disease Diabetes Smoking Heavy alcohol use Physical inactivity and obesity Atrial Fibrillation (irregular heartbeat) Family history of stroke Reminder: Be sure to sign up for the [employer] patient portal, which gives you 24/ access to your medical information ??? including these discharge instructions ??? using your computer, smartphone, or tablet. Just go to [employer] to get started. Questions? Call . [facility] would like to thank you for allowing us to assist you with your healthcare needs. TL Hahn [employer], (or credit and collections representative) have received the above patient education materials/instructions and have verbalized understanding: Patient Signature _ Date/Time Patient Field Care Coordinator Signature (if needed) Date/Time Clinician/Hospital Field Care Coordinator Signature (if needed) Date/Time documented in this encounter Plan of Treatment Not on file documented as of this encounter Visit Diagnoses Not on filedocumented in this encounter
--- OUTSIDE RECORDS SUMMARY | 2024-10-16 10:25 | XMS_ITS | Encounter Summary ---
Author Organization [employer] ([place], [place], [place], [place]) Address [address] [place] [address] Care Team Providers Care Airframe And Powerplant Technician Name Role Phone Unavailable Primary Care Provider Unavailabl e Encounter Details Date Type Department Care Team (Late st Contact Info) Description 05/09/2020 Transcribed Document [facility] [place] Medicine [facility] [place] [address] ProviderRuperto MD [address] [place] [address] Social History Tobacco Use Types [...] Conversion Note - Historical ProviderMD - 05/09/2020 9:26 AM SEISMIC PROSPECTING SUPERVISOR Patient: PASCALE BOOTHE Age: 34 Years Sex: Female : 1985 Assessment/Plan POD 2 laparoscopic cholecystectomy for acute cholecystitis. Yesterday afternoon became nauseous and has had a few episodes of vomiting. Pain in the abdomen is moderate. She is up ambulating. Leukocytosis has resolved. Her labs are just borderline suggestive of some biliary obstruction. Bilirubin has returned to normal today but LFTs are slightly elevated, though not completely unexpected after cholecystectomy for acute cholecystitis. I will order lipase to ensure she has not developed pancreatitis. We will continue some liquids by mouth. Would continue trending hepatic function panels. If ongoing suggestion of biliary obstruction will get imaging to further evaluate bile duct. VTE Prophylaxis - Medical Heparin 5,000 Units, SubCutaneous, Inj, Q8H, Routine, Start 05/07/20 14:00:00 EST, 05/07/20 11:02:00 EST (BLADIMIR YI) Subjective Nausea and a few episodes of emesis overnight Vital Signs T: 36.8 ??C TMIN: 36.4 ??C TMAX: 37 ??C HR: 59 RR: 14 BP: 142/72 SpO2: 96% Oxygen Settings (Last) Oxygen Therapy Mode: Room air (05/09/20 07:55:00) Oxygen Flow Rate: 2 Liter/Min (05/07/20 20:19:00) Intake & Output Totals Last 24 Hours (7a-7a) Input Total: 861.81 mL Output Total: 0 mL Balance: 861.81 mL Physical Exam Comfortable in bed, regular rate and rhythm, normal work of breathing, abdomen soft, incision healing well without erythema Medications Dilaudid, 0.5 mg= 0.5 mL, [...] Test Name Test Result Date/Time Sodium Level 138 mmol/L 05/09/2020 06:59 EST Potassium Level 3.8 mmol/L 05/09/2020 06:59 EST Chloride Level 103 mmol/L 05/09/2020 06:59 EST Carbon Dioxide Level 31 mmol/L 05/09/2020 06:59 EST Anion Gap 8 (Low) 05/09/2020 06:59 EST Glucose Level 98 mg/dL 05/09/2020 06:59 EST Blood Urea Nitrogen 10 mg/dL 05/09/2020 06:59 EST Creatinine Level 0.90 mg/dL 05/09/2020 06:59 EST eGFR >60 mL/min/1.73m2 05/09/2020 06:59 EST eGFR NonAfrican >60 mL/min/1.73m2 05/09/2020 06:59 EST Bun/Creatinine 11.1 05/09/2020 06:59 EST Calcium Level 9.0 mg/dL 05/09/2020 06:59 EST Protein Total 7.1 Gram/dL 05/09/2020 06:59 EST Albumin Level 3.3 Gram/dL (Low) 05/09/2020 06:59 EST Globulin 3.8 Gram/dL 05/09/2020 06:59 EST A/G Ratio 0.9 (Low) 05/09/2020 06:59 EST Bilirubin Total 1.2 mg/dL 05/09/2020 06:59 EST Bilirubin Direct 0.3 mg/dL (High) 05/09/2020 06:59 EST Alk Phos 179 Units/Liter (High) 05/09/2020 06:59 EST AST 169 Units/Liter (High) 05/09/2020 06:59 EST ALT 251 Units/Liter (High) 05/09/2020 06:59 EST WBC 10.3 K/uL 05/09/2020 06:59 EST RBC 3.89 Million/uL (Low) 05/09/2020 06:59 EST Hgb 11.6 g/dL 05/09/2020 06:59 EST Hct 36.3 % 05/09/2020 06:59 EST MCV 93.3 fL 05/09/2020 06:59 EST MCH 29.8 pg 05/09/2020 06:59 EST MCHC 32.0 Gram/dL (Low) 05/09/2020 06:59 EST Platelet Count 252 K/uL 05/09/2020 06:59 EST MPV 10.9 fL 05/09/2020 06:59 EST RDW 13.7 % 05/09/2020 06:59 EST Slide Review No 05/09/2020 06:59 EST Electronically signed by Jimmy, [facility] Conversion Pipe Fitter Soft Copper Cerner at 06/20/2022 6:11 PM CDT documented in this encounter Plan of Treatment Not on file documented as of this encounter Visit Diagnoses Not on filedocumented in this encounter
--- OUTSIDE RECORDS SUMMARY | 2024-10-16 10:25 | XMS_ITS | Encounter Summary ---
Author Organization [employer] ([place], [place], [place], [place]) Address [address] [address] Care Team Providers Care Retail Field Merchandiser Name Role Phone Unavailable Primary Care Provider Unavailabl e Encounter Details Date Type Department Care Team (Late st Contact Info) Description 05/07/2020 Transcribed Document [facility] [place] [facility] [place] [address] ProviderRuperto MD [address] [place] [address] Social History Tobacco Use Types [...] - Historical ProviderMD - 05/07/2020 9:02 AM TARIFF COMPILING CLERK Pain Assessment Entered On: 05/08/2020 6:49 EST Performed On: 05/08/2020 6:57 EST by Laina Greer RN Intervention Information: HYDROmorphone Performed by Laina Greer RN on 05/08/2020 06:27:00 EST HYDROmorphone,0.5mg IV Push,Forearm Right,Pain (Severe 7-10) Pain Assessment Pain Assessment : Follow-up assessment Pain Scale Goal : 4 Pain Scale Used : 0-10 Scale Pain Improved by Intervention : Yes Laina Greer RN - 05/08/2020 6:48 EST Pain Scale Intensity : 7 Laina Greer RN - 05/08/2020 6:48 EST Image 4 - Images currently included in the form version of this document have not been included in the text rendition version of the form. Electronically signed by Jimmy, [facility] Conversion Electron Tube Assembler Cerner at 06/24/2022 4:14 PM CDT documented in this encounter Plan of Treatment Not on file documented as of this encounter Visit Diagnoses Not on filedocumented in this encounter
--- OUTSIDE RECORDS SUMMARY | 2024-10-16 10:25 | XMS_ITS | Encounter Summary ---
Author Organization [employer] ([place], [place], [place], [place]) Address [address] [place] [address] Care Team Providers Care Education Counselor Name Role Phone Unavailable Primary Care Provider Unavailabl e Encounter Details Date Type Department Care Team (Late st Contact Info) Description 05/10/2020 Transcribed Document [facility] [place] Family Medicine [address] [place] [address] ProviderRuperto MD [address] [place] [address] Social History Tobacco Use Types [...] Conversion Note - Historical ProviderMD - 05/10/2020 2:10 PM TRUST EVALUATION SUPERVISOR Patient: PASCALE BOOTHE Age: 34 years Sex: Female : 1985 Associated Diagnoses: None Author: GINO SOLORIO MD Subjective Seen and examined 05/10 Nausea and vomiting improving tolerating diet Review of Systems Nausea No fever no [...] mg, Oral, Q4H, PRN: Pain (Moderate 4-6) Synthroid: 175 mcg, Oral, Daily Tylenol: 650 [...] Oral, Daily propranolol: 40 mg, Oral, Daily Prescriptions Prescribed Colace 100 mg oral capsule: 1 Cap, Oral, Daily, 20 Cap, 0 Refill(s) Roxicodone 5 mg oral tablet: 1 Tab, Oral, Q4H, PRN: Pain (Moderate 4-6), 18 Tab, 0 Refill(s) Documented Medications Documented diclofenac sodium 75 mg oral delayed release tablet: 0 Refill(s) levothyroxine 175 mcg (0.175 mg) oral tablet: 0 Refill(s) lisinopril 10 mg oral tablet: 0 Refill(s) pravastatin 20 mg oral tablet: 1 Tab, 0 Refill(s) propranolol 40 mg oral tablet: 0 Refill(s) sertraline 100 mg oral tablet: 0 Refill(s), Medications (14) Active Scheduled: (7) heparin 5,000 units/1 mL [...] 100 mg 1 Tab, Oral, Daily Continuous: (0) PRN: (7) acetaminophen 325 mg tab 650 [...] History of obstructive sleep apnea / IMO [id number] / Confirmed, Active Problems (8) Anxiety Depression History of obstructive sleep apnea Hyperlipidemia Hypertension Hypothyroidism, unspecified Migraines Sleep apnea Objective VS/Measurements Vitals Signs (last 24 hrs) Last Charted Minimum Maximum Temp 98.1 (MAY 10 10:30) 97.7 (MAY 10 03:00) 98 (MAY 09 15:00) Apical HR 78 (MAY 10 08:48) 78 (MAY 10 08:48) 78 (MAY 10 08:48) Mon HR 56 (MAY 10 10:30) 50 (MAY 09:00) 64 (MAY 09:19) Resp Rate 18 (MAY 10 10:30) 14 (MAY 10 06:01) 18 (MAY 09 15:00) SBP 108 (MAY 10 10:30) 95 (MAY 10 03:00) 137 (MAY 09:00) DBP 60 (MAY 10 10:30) L 57 (MAY 10 03:00) 81 (MAY 09 15:00) MAP 73 (MAY 10 10:30) 69 (MAY 10 03:00) 102 (MAY 09 15:00) SpO2 94 (MAY 10 10:30) L 93 (MAY 09:19) 97 (MAY 09:) General: Alert and oriented, Mild distress, Obese. [...] mood & affect. Review / Management MAY 10 06:46 137 103 10 / 82 L 3.4 31 0.90 \ MAY 10 06:46 \ L 11.0 / 8.1 200 / 35.4 \ No Radiology Results Found Results review: Labs (Last four charted values) WBC 8.1 (MAY 10) 10.3 (MAY 08) H 14.8 (MAY 07) H 11.9 (MAY 06) HB L 11.0 (MAY 10) 11.6 (MAY 08) 12.3 (MAY 07) 12.0 (MAY 06) HCT 35.4 (MAY 09) 36.3 (MAY 08) 39.0 (MAY 07) 37.2 (MAY 06) Plt 200 (MAY 09) 252 (MAY 08) 282 (MAY 07) 246 (MAY 06) Na 137 (MAY 09) 138 (MAY 08) 137 (MAY 07) 139 (MAY 06) K L 3.4 (MAY 09) 3.8 (MAY 08) 4.1 (MAY 07) 4.2 (MAY 06) Cl 103 (MAY 09) 103 (MAY 08) 104 (MAY 07) 105 (MAY 06) CO2 31 (MAY 09) 31 (MAY 08) 29 (MAY 07) 28 (MAY 06) BUN 10 (MAY 09) 10 (MAY 08) 7 (MAY 07) 8 (MAY 06) Cr 0.90 (MAY 09) 0.90 (MAY 08) 0.80 (MAY 07) 0.70 (MAY 06) Glu R 82 (MAY 09) 98 (MAY 08) H 115 (MAY 07) H 107 (MAR 06) Ca 8.4 (MAY 10) 9.0 (MAY 09) 8.8 (MAY 08) 9.0 (MAY 07) PT 10.3 (MAY 07) INR 1.0 (MAY 07) AST H 144 (MAY 10) H 169 (MAY 09) H 110 (MAY 08) 11 (MAY 07) ALT H 233 (MAY 10) H 251 (MAY 09) H 104 (MAY 08) 21 (MAY 07) ALK P H 215 (MAY 10) H 179 (MAY 09) 113 (MAY 08) 81 (MAY 07) T Bili 1.1 (MAY 10) 1.2 (MAY 09) H 1.4 (MAY 08) 0.6 (MAY 07) PTN L 6.3 (MAY 10) 7.1 (MAY 09) 7.2 (MAY 08) 7.2 (MAY 07) ALB L 3.0 (MAY 10) L 3.3 (MAY 09) L 3.3 (MAY 08) 3.4 (MAY 07) Lipase L 45 (MAY 10) L 39 (MAY 09) . Impression and Plan #Acute cholecystitis CT scan showed large gallstone, distended gallbladder IV fluid IV Zosyn Consult surgery underwent laparoscopic cholecystectomy 05/07 Advance diet per surgery Encourage ambulation Pain control Advance diet to regular #Right upper quadrant pain Bowel rest Pain control check lipase normal #Elevated white count, trending down IV antibiotic Monitor Afebrile Recheck in the morning #Elevated LFT No Jaundice, Bili slightly elevated post operative Monitor check in am #Nausea and vomiting, improving Diet as tolerated Antiemetic as needed #Hypertension [...] Labs, imaging from outside hospital reviewed Disposition: Home when tolerate diet Monitor LFT D/C today or tomorrow documented in this encounter Plan of Treatment Not on file documented as of this encounter Visit Diagnoses Not on filedocumented in this encounter
--- OUTSIDE RECORDS SUMMARY | 2024-10-16 10:25 | XMS_ITS | Encounter Summary ---
Author Organization [employer] ([place], [place], [place], [place]) Address [address] [place] [address] Care Team Providers Care Field Court Researcher Name Role Phone Unavailable Primary Care Provider Unavailabl e Encounter Details Date Type Department Care Team (Late st Contact Info) Description 05/07/2020 Transcribed Document [facility] [place] Family Medicine [address] [place] [address] ProviderRuperto MD [address] [id number] Social History Tobacco Use Types Packs/Day Years [...] Conversion Note - Historical ProviderMD - 05/07/2020 1:53 PM VOICE OVER ARTIST Pain Assessment Entered On: 05/07/2020 16:05 EST Performed On: 05/07/2020 16:10 EST by TREY NEIVES RN Intervention Information: fentaNYL Performed by TREY NIEVES RN on 05/07/2020 15:40:00 EST fentaNYL,25mcg IV Push,Right Upper Arm,Pain (Moderate 4-6) Pain Assessment Pain Assessment : Follow-up assessment Pain Scale Goal : 4 Pain Improved by Intervention : Yes Pain Comment : slight improvememt when asked TREY NIEVES RN - 05/07/2020 16:05 EST documented in this encounter Plan of Treatment Not on file documented as of this encounter Visit Diagnoses Not on filedocumented in this encounter
--- OUTSIDE RECORDS SUMMARY | 2024-10-16 10:25 | XMS_ITS | Encounter Summary ---
Author Organization [employer] ([place], [place], [place], [place]) Address [address] [place] [address] Care Team Providers Care Senior Mobile Application Developer Name Role Phone Unavailable Primary Care Provider Unavailabl e Encounter Details Date Type Department Care Team (Late st Contact Info) Description 05/10/2020 Transcribed Document [facility] [place] [facility] [place] [address] ProviderRuperto MD [address] [place] [address] Social History Tobacco Use Types [...] Conversion Note - Historical ProviderMD - 05/10/2020 4:13 PM JUNIOR ELECTRICAL ENGINEER On Going Discharge Planning Entered On: 05/10/2020 16:15 EST Performed On: 05/10/2020 16:13 EST by ONUR PERALTA RN-[employer] Certified Internetwork ExpertEasement Worker Progress Note Discharge Arrangements : Patient Post-Acute Information Patient Name: PASCALE BOOTHE Gender: Female : [birth year] Age: 34 Years No Post-Acute Placement(s) Listed No Post-Acute Service(s) Listed No [place] Referral(s) Listed Discharge Options Discussed with Patient : Discharge transportation, Home Health Is the Patient Meeting Medical Necessity : Yes ONUR PERLATA RN-[employer] Certified Internetwork Expert - 05/10/2020 16:13 EST Narrative Progress Note Narrative Progress Note : rrs low 3 days elos 4 days cm spoke to patient. Patient possible discharge tomorrow if tolerate diet . no needs identified at this time DCP: home ONUR PERALTA, RN-[employer] Certified Internetwork Expert - 05/10/2020 16:13 EST Electronically signed by Jimmy, [facility] Conversion Inventory Management Specialist Cerner at 06/20/2022 6:24 PM CDT documented in this encounter Plan of Treatment Not on file documented as of this encounter Visit Diagnoses Not on filedocumented in this encounter
--- OUTSIDE RECORDS SUMMARY | 2024-10-16 10:25 | XMS_ITS | Encounter Summary ---
Author Organization [employer] ([place], [place], [place], [place]) Address [address] [place] [address] Care Team Providers Care Smasher Name Role Phone Unavailable Primary Care Provider Unavailabl e Encounter Details Date Type Department Care Team (Late st Contact Info) Description 05/08/2020 Transcribed Document [facility] [place] Pending [facility] to [facility] [address] ProviderRuperto MD [place] [address] Social History Tobacco Use Types [...] Conversion Note - Historical ProviderMD - 05/08/2020 10:52 AM FABRIC PATTERN GRADER Patient: PASCALE BOOTHE Age: 34 Years Sex: Female : 1985 Admit Date 05/07/2020 08:50 Discharge Date 05/11/2020 Primary Care Provider JAYDON GARY, MERCHANDISE PLANNING MANAGER-FAM Discharge Diagnosis No Diagnosis on Record Procedures SN - Proc - Procedure: Cholecystectomy Laparoscopic (05/07/20 14:57:49) Reason for Hospitalization Abdominal pain Hospital Course This is 34 years old female patient past medical history of hypothyroidism, hypertension, hyperlipidemia, migraine headache, obstructive sleep apnea not compliant with CPAP, morbid obesity, patient was transferred from [facility] for acute cholecystitis. Patient presented with right [...] patient to be transferred to our facility. Surgery Consulted, patient underwent laparoscopic cholecystectomy, Post operative patient developed nausea and vomiting, continue to have abdominal pain, her pylorus open and liver enzymes elevated suspected from compression from gallstones in the biliary duct, her liver enzymes continue to trend down, patient started tolerating diet no nausea no vomiting, her pain is controlled, patient will be discharged home follow-up with surgery as an outpatient. Discharge patient condition stable, afebrile, tolerating diet. Vital Signs T: 36.8 ??C TMIN: 36.7 ??C TMAX: 36.8 ??C HR: 54(Monitored) RR: 18 BP: 106/54 SpO2: 95% Oxygen Settings (Last) Oxygen Therapy Mode: Room air (05/11/20 04:43:00) Oxygen Flow Rate: 2 Liter/Min (05/07/20 20:19:00) Physical Exam General: Alert and oriented, no acute distress Neurologic: Awake, alert, and oriented X3, no apparent focal deficits Eye: EOMI, normal conjunctiva HENT: Normocephalic, atraumatic Discharge Disposition Home Discharge Follow Up JAYDON GARY APRN-KARLA - 02:15 PM BLADIMIR YI MD - 11:00 AM Discharge Medications (7) Active Colace 100 mg oral capsule 100 mg = 1 Cap, Oral, Daily diclofenac sodium 75 mg oral delayed release tablet 75 mg = 1 Tab, Oral, BID levothyroxine 175 mcg (0.175 mg) oral tablet 175 mcg = 1 Tab, Oral, Daily lisinopril 10 mg oral tablet 10 mg = 1 Tab, Oral, Daily pravastatin 20 mg oral tablet 20 mg = 1 Tab, Oral, Daily propranolol 40 mg oral tablet 40 mg = 1 Tab, Oral, Daily sertraline 100 mg oral tablet 100 mg = 1 Tab, Oral, Daily Code Status Start: 05/07/20 9:02:00 EST, Full Code, Continuous Order Consulting Physicians BLADIMIR YI MD (Surgery) - Cholecystitis ARMANDO GRAY MD-ANS Current Diet Order Diet, Adult - Ordered -- Start: 05/08/20 8:07:00 EST, Regular Diet Patient Discharge Summary Orders Discharge Activity: Discharge Activity: Activity as tolerated Diet: Discharge Diet: Resume usual diet as tolerated Pending Labs Collected Path Tissue Request, Sendout Specimen Type: AP Specimen, Routine collect, 05/07/20 14:13:00 EST, 1-Time, Collected, Stop: 05/07/20 14:13:00 EST, Nurse Collect, Specimen Desc: A. GALLBLADDER AND CONTENTS, Print Label By Order Location Pathology Tissue Request 05/07/20 14:13:00 EST, Collected, RT - Routine, 05/07/20 14:13:00 EST, Fanny Connelly RN, Specimen Type: AP Specimen, Specimen Desc: A. GALLBLADDER AND CONTENTS, SEE DOCTOR NOTES, Pre-Op Dx: CHOLECYSTITIS, Print Label, [id number], Print Label By Orde... Time Spent on Discharge 33 min documented in this encounter Plan of Treatment Not on file documented as of this encounter Visit Diagnoses Not on filedocumented in this encounter
--- OUTSIDE RECORDS SUMMARY | 2024-10-16 10:25 | XMS_ITS | Encounter Summary ---
Author Organization [employer] ([place], [place], [place], [place]) Address [address] [facility] [place] [address] Care Team Providers Care Director Of Extension Work Name Role Phone Unavailable Primary Care Provider Unavailabl e Encounter Details Date Type Department Care Team (Late st Contact Info) Description 05/07/2020 Transcribed Document [facility] [place] Family Medicine [facility] [place] [address] ProviderRuperto MD [place] [address] Social History Tobacco Use Types [...] - Historical ProviderMD - 05/07/2020 9:02 AM DEMAND PLANNING ANALYST Education-Diabetes Topics Entered On: 05/08/2020 1:40 EST Performed On: 05/07/2020 9:02 EST by Laina Greer V RN Teaching/Learning Assessment Barriers To Learning : None evident Learning Style Preferences Patient : None Learning Style Preferences Family : None Laina Greer V, RN - 05/08/2020 1:40 EST Education, Diabetes Diabetes Education Grid Symptom Identification & Action Plan *Q : Needs further teaching Acute Complications : Needs further teaching Blood Glucose Monitoring : Needs further teaching Chronic Complications : Needs further teaching Community Resources : Needs further teaching Compliance Strategies : Needs further teaching Coping/Care Regimen : Needs further teaching Cost Issues : Needs further teaching Disease Process : Needs further teaching DKA Signs and Symptoms : Needs further teaching Follow-up Care : Needs further teaching Foot Care : Needs further teaching Gestational Management : Needs further teaching Infection Control : Needs further teaching Insulin Administration : Needs further teaching Insulin Types/Onset/Duration : Needs further teaching Medical Alert Band : Needs further teaching Medication Storage : Needs further teaching Medication Dosage/Route : Needs further teaching Medication Generic/Brand : Needs further teaching Medication Precautions : Needs further teaching Medication Special Administration : Needs further teaching Medication, Preadministration : Needs further teaching Monitoring Results : Needs further teaching Nutritional Management/Exercise : Needs further teaching Oral Agents : Needs further teaching Physical Activity : Needs further teaching Post-Contrast Instructions : Needs further teaching Preconception Care : Needs further teaching Management : Needs further teaching Psychosocial Adjustment : Needs further teaching Sexual Dysfunction : Needs further teaching Treatment Plan/Options : Needs further teaching Treatment/Management Goal : Needs further teaching Urine Ketone Monitoring : Needs further teaching Weight Loss : Needs further teaching Diabetes, Other : Needs further teaching Laina Greer RN - 05/08/2020 1:40 EST documented in this encounter Plan of Treatment Not on file documented as of this encounter Visit Diagnoses Not on filedocumented in this encounter
--- OUTSIDE RECORDS SUMMARY | 2024-10-16 10:25 | XMS_ITS | Referral Summary ---
Author Organization [employer] ([place], [place], [place], [place]) Address [address] [place] [address] Care Team Providers Care Feedmobile Driver Name Role Phone Unavailable Primary Care Provider [...]
--- OUTSIDE RECORDS SUMMARY | 2024-10-16 10:25 | XMS_ITS | Encounter Summary ---
Author Organization [employer] ([place], [place], [place], [place]) Address [address] [place] [address] Care Team Providers Care Marine Tower Operator Name Role Phone Unavailable Primary Care Provider Unavailabl e Encounter Details Date Type Department Care Team (Late st Contact Info) Description 05/07/2020 Transcribed Document [facility] [place] Family Medicine [facility] [place] [address] ProviderRuperto MD [address] [place] [address] Social History Tobacco Use Types [...] Conversion Note - Historical ProviderMD - 05/07/2020 11:03 AM CHILD SUPPORT CASE OFFICER Patient: PASCALE DICKSON Age: 34 Years Sex: Female : 1985 Chief Complaint Abdominal pain, nauea Reason for Consultation Cholecystitis History of Present Illness 34-year-old female with history of hypertension, hyperlipidemia, hypothyroidism, sleep apnea. Surgical history includes section. She had fairly sudden onset of right upper quadrant abdominal pain and nausea that started around 12 hours ago. Has not experienced similar symptoms in the past. No jaundice or icterus. Is associated with some vomiting. She presented to an outside emergency department where CT scan shows a large gallstone in the neck of the gallbladder with some gallbladder wall thickening. She was transferred here for further care. No significant other symptoms. No blood thinners. Review of Systems Constitutional: no fever, chills, night sweats, or weight change Eyes: no icterus or acute vision change Ear, nose, mouth, and throat: no hearing loss, mucosal bleeding or voice change Cardiovascular: no chest pain or palpitations Respiratory: no shortness of air, cough, or wheeze Gastrointestinal: abdominal pain, nausea Genitourinary: no dysuria or gross hematuria Musculoskeletal: no joint or muscle pain Integumentary: no skin rash, ulcers, or wounds Neurological: no focal weakness or sensory changes Psychiatric: no depression or anxiety Endocrine: no hot/cold intolerance or episodes of hypoglycemia Hematologic: no anemia Immunologic: no recent illness or immunodeficiency Vital Signs HT: 167.64 cm WT: 159.09 kg BMI: 56.6 Oxygen Settings (Last) No qualifying data available. Physical Exam Constitutional: comfortable, well nourished HEENT: atraumatic, anicteric, membranes moist, normal dentition, trachea midline Hem/Lymph/Immune: no lymphadenopathy Cardiovascular: regular rate and rhythm Respiratory: normal work of breathing, lungs clear bilaterally without audible wheeze GI: abdomen soft, tender in right upper quadrant with positive Olivas sign Musculoskeletal: extremities warm, no cyanosis or edema, 5/5 muscle strength in all four extremities and normal sensation grossly Skin: free of rashes, lesions, ulcers or wounds Psych: A&Ox3, appropriate affect, cooperative Neuro: normal strength and sensation grossly, face symmetric without droop, tongue protrusion midline Assessment/Plan 34-year-old female with around 12 hours of right upper quadrant pain, nausea and vomiting. Vitals are normal. She has a mild leukocytosis. Liver functions are normal. CT scan showed a large gall stone in the neck of the gallbladder with some gallbladder wall thickening. She was transferred here for surgical care. I do think her symptoms are related to cholecystitis. Offered laparoscopic cholecystectomy. We discussed the risks of bleeding, infection, damage to other structures including bowel, liver, we discussed the risk and incidence of common bile duct injury. We will proceed with laparoscopic cholecystectomy today. All questions were answered. VTE Prophylaxis - Medical Heparin 5,000 Units, SubCutaneous, Inj, Q8H, Routine, Start 05/07/20 14:00:00 EST, 05/07/20 11:02:00 EST (BLADIMIR YI) Provider Information Primary Care Physician - JAYDON GARY, SILK SOAKER-FAM Attending Physician - KEELY GUZMAN, DO-INT Admitting Physician - KEELY GUZMAN DO-INT Consulting Physician - BLADIMIR YI MD (Surgery)- Cholecystitis Referring Physician - PAULA DELGADO (REF) MD [place] Problem List/Past Medical History Ongoing Anxiety Depression History of obstructive sleep apnea Hyperlipidemia Hypertension Hypothyroidism, unspecified Migraines Sleep apnea Historical No qualifying data Procedure/Surgical History DELIVERY ONLY. Medications Inpatient Dilaudid, 0.5 mg= 0.5 mL, IV Push, Q2H, PRN DuoNeb 0.5 mg-2.5 mg/3 mL inhalation solution, 3 mL, Nebulized Inhalation , RT_Q6H, PRN heparin, 5000 Units, SubCutaneous, Q8H hydrALAZINE, 10 mg= 0.5 mL, IV Push, Q6H, PRN Roxicodone, 10 mg= 2 Tab, Oral, Q4H, PRN Sodium Chloride 0.9% intravenous solution 1,000 mL, 1000 mL, IntraVENous Tylenol, 650 mg= 2 Tab, Oral, Q4H, PRN Zofran, 4 mg= 2 mL, IV Push, Q4H, PRN Zosyn + Sodium Chloride 0.9% intravenous solution 100 mL Zosyn + Sodium Chloride 0.9% intravenous solution 100 mL Home diclofenac sodium 75 mg oral delayed release tablet levothyroxine 175 mcg (0.175 mg) oral tablet lisinopril 10 mg oral tablet pravastatin 20 mg oral tablet propranolol 40 mg oral tablet sertraline 100 mg oral tablet Allergies sulfa drugs Latex Lortab Social History no tobacco and alcohol or drug abuse Family History hypertension Lab Results Test Name Test Result Date/Time Sodium Level 139 mmol/L 05/07/2020 09:59 EST Potassium Level 4.2 mmol/L 05/07/2020 09:59 EST Chloride Level 105 mmol/L 05/07/2020 09:59 EST Carbon Dioxide Level 28 mmol/L 05/07/2020 09:59 EST Anion Gap 10 05/07/2020 09:59 EST Glucose Level 107 mg/dL (High) 05/07/2020 09:59 EST Blood Urea Nitrogen 8 mg/dL 05/07/2020 09:59 EST Creatinine Level 0.70 mg/dL 05/07/2020 09:59 EST eGFR >60 mL/min/1.73m2 05/07/2020 09:59 EST eGFR NonAfrican >60 mL/min/1.73m2 05/07/2020 09:59 EST Bun/Creatinine 11.4 05/07/2020 09:59 EST Calcium Level 9.0 mg/dL 05/07/2020 09:59 EST Protein Total 7.2 Gram/dL 05/07/2020 09:59 EST Albumin Level 3.4 Gram/dL 05/07/2020 09:59 EST Globulin 3.8 Gram/dL 05/07/2020 09:59 EST A/G Ratio 0.9 (Low) 05/07/2020 09:59 EST Bilirubin Total 0.6 mg/dL 05/07/2020 09:59 EST Alk Phos 81 Units/Liter 05/07/2020 09:59 EST AST 11 Units/Liter 05/07/2020 09:59 EST ALT 21 Units/Liter 05/07/2020 09:59 EST WBC 11.9 K/uL (High) 05/07/2020 09:59 EST RBC 4.01 Million/uL 05/07/2020 09:59 EST Hgb 12.0 g/dL 05/07/2020 09:59 EST Hct 37.2 % 05/07/2020 09:59 EST MCV 92.8 fL 05/07/2020 09:59 EST MCH 29.9 pg 05/07/2020 09:59 EST MCHC 32.3 Gram/dL 05/07/2020 09:59 EST Platelet Count 246 K/uL 05/07/2020 09:59 EST MPV 10.9 fL 05/07/2020 09:59 EST RDW 13.2 % 05/07/2020 09:59 EST Neut % 83.6 % (High) 05/07/2020 09:59 EST Neut # 9.92 K/uL (High) 05/07/2020 09:59 EST Lymph % 12.0 % (Low) 05/07/2020 09:59 EST Lymph # 1.43 x10(3)/uL 05/07/2020 09:59 EST Crisp % 3.5 % 05/07/2020 09:59 EST Crisp # 0.41 K/uL 05/07/2020 09:59 EST Eos % 0.0 % 05/07/2020 09:59 EST Eos # 0.00 x10(3)/uL 05/07/2020 09:59 EST Baso % 0.4 % 05/07/2020 09:59 EST Baso # 0.05 x10(3)/uL 05/07/2020 09:59 EST Slide Review No 05/07/2020 09:59 EST IG# 0.06 x10(3)/uL (High) 05/07/2020 09:59 EST IG% 0.50 % 05/07/2020 09:59 EST PT 10.3 Second(s) 05/07/2020 09:59 EST INR 1.0 05/07/2020 09:59 EST Electronically signed by Interface, [facility] Conversion Wood Carving Machine Operator Cerner at 06/20/2022 6:34 PM CDT documented in this encounter Plan of Treatment Not on file documented as of this encounter Visit Diagnoses Not on filedocumented in this encounter
--- OUTSIDE RECORDS SUMMARY | 2024-10-16 10:25 | XMS_ITS | Encounter Summary ---
Author Organization [employer] ([place], [place], [place], [place]) Address [address] [place] [address] Care Team Providers Care Concrete Engineer Name Role Phone Unavailable Primary Care Provider Unavailabl e Encounter Details Date Type Department Care Team (Late st Contact Info) Description 05/11/2020 Transcribed Document [facility] [place] [place] [facility] [place] [address] ProviderRuperto MD [address] [place] [address] Social History Tobacco Use Types Packs/Day Years Used Date Smoking Tobacco: Never Assessed Comments Unknown Sex and Gender Information Value Date Recorded Sex Assigned at Female 08/29/2021 4:28 PM CDT Legal Sex Female 4:28 PM CDT Gender Identity Female 08/29/2021 4:28 PM CDT Sexual Orientation Not on file documented as of this encounter Miscellaneous Notes * [employer]ner Conversion Note - Ruperto Greene MD - 05/11/2020 8:57 AM DATA ANALYSIS ASSISTANT Patient Education Materials Follows: Laparoscopic Cholecystectomy, Care After This sheet gives [...] and water are not available, use hand database design analyst. ? Change your dressing as told by [...] care provider approves. General instructions ??? Take [id number] and prescription medicines only as told by your health care provider. ??? To prevent or treat constipation while you are taking prescription pain medicine, your health care provider may recommend that you: ? Drink enough fluid to keep your urine clear or pale yellow. ? Take [id number] or prescription medicines. ? Eat foods that [...] 02/18/2006 Document Revised: 01/31/2018 Document Reviewed: 08/06/2016 [employer] Patient Education ? 2020 [employer]. Gastroenterology Cholecystitis Cholecystitis is inflammation of the gallbladder. [...] care after the procedure. Medicines ??? Take umvi-btq-xepbecz and prescription medicines only as told by [...] 02/18/2006 Document Revised: 06/27/2018 Document Reviewed: 06/27/2018 [employer] Patient Education ? 2020 [employer]. documented in this encounter Plan of Treatment Not on file documented as of this encounter Visit Diagnoses Not on filedocumented in this encounter
--- OUTSIDE RECORDS SUMMARY | 2024-10-16 10:25 | XMS_ITS | Encounter Summary ---
Author Organization [employer] ([place], [place], [place], [place]) Address [address] [place] [address] Care Team Providers Care Compliance Associate Name Role Phone Unavailable Primary Care Provider Unavailabl e Encounter Details Date Type Department Care Team (Late st Contact Info) Description 05/11/2020 Transcribed Document [facility] [place] Family Medicine [facility] [place] [address] ProviderRuperto MD [address] [place] [address] Social History Tobacco Use Types [...] Conversion Note - Historical ProviderMD - 05/11/2020 11:44 AM STUDENT LOAN COUNSELOR Nursing Discharge Summary Entered On: 05/11/2020 11:44 EST Performed On: 05/11/2020 11:44 EST by Robyn Fisher break up worker Documentation Discharge Date/Time : 05/11/2020 11:44 EST Patient Disposition, General : Discharge Discharge To : Home with ambulatory/outpatient follow-up Mode Of Departure, General Discharge : Private vehicle, Wheelchair Accompanied By, Discharge : Spouse IV Discontinued : Yes Personal Belongings With Patient : Yes Prescriptions Given to Patient : Electronically sent Discharge Instructions Reviewed With, Opportunity For Questions Given : Patient Patient Education Completed : Yes Teaching Method : Explanation, Printed materials Teaching Evaluation : Verbalizes understanding Education Comment : pt verbalizes understanding regarding discharge instructions Robyn Fisher RN - 05/11/2020 11:44 EST Electronically signed by [facility] Conversion [employer] Roofer Cerner at 06/20/2022 6:29 PM CDT documented in this encounter Plan of Treatment Not on file documented as of this encounter Visit Diagnoses Not on filedocumented in this encounter
[2024-10-16 10:30] VITALS: BP 137/77; BP 151/89; PULSE 71; PULSE 86; RESP 19; TEMP 36.8; O2SAT 98; BMI 61.6
[2024-10-16 10:50] LABS: Hematocrit 37.4 % (37.0-47.0); Hemoglobin 12.1 g/dL (12.2-16.2); Immature Granulocytes % 0.6 %; Mean Corpuscular HGB Conc 32.4 g/dL (31.8-35.4); Mean Corpuscular Hemoglobin 29.4 pg (27.0-31.2); Mean Corpuscular Volume 91.0 fl (81-99); Nucleated Red Blood Cells % 0 %; Platelet Count 258 K/mm3 (142-424); Red Blood Count 4.11 M/mm3 (4.20-5.40); Red Cell Distribution Width-SD 46.1 fL; White Blood Count 8.6 K/mm3 (4.8-10.8)
[2024-10-16 11:01] LABS: Albumin Level 4.5 g/dl (3.5-5.0); Chloride 102 mmol/L (98-107); Potassium 3.9 mmoL/L (3.5-5.1); Sodium 138 mmol/L (136-145)
[2024-10-16 11:04] LABS: Alanine Aminotransferase 22 U/L (12-78); Albumin/Globulin Ratio 1.2 (1.1-1.8); Alkaline Phosphatase 108 U/L (38-126); Anion Gap 10.9 mEq/L (5-15); Aspartate Amino Transferase 27 U/L (14-36); Bilirubin,Total 0.9 mg/dl (0.2-1.3); Blood Urea Nitrogen 11 mg/dl (7-17); Calcium 9.3 mg/dl (8.4-10.2); Carbon Dioxide 29 mmol/L (22.0-30.0); Creatinine Clearance Estimated 100 mL/min (50-200); Creatinine,Serum 0.70 mg/dl (0.52-1.04); Estimated Glomerular Filt Rate 93 ml/min (>60); GFR (African American) 112 ML/MIN (>60); Globulin 3.7 g/dL (1.3-3.2); Glucose 103 mg/dl (74-100); Total Protein,Serum 8.2 g/dl (6.3-8.2)
[2024-10-16 11:05] LABS: Activated Partial Thrombo Time 25.8 seconds (22.8-30.6); INR 0.96 (0.9-1.1); Prothrombin Time 10.7 seconds (10.1-12.5)
[2024-10-16 11:36] VITALS: BP 154/84
[2024-10-16 12:00] VITALS: BP 159/99
--- NOTE | 2024-10-16 12:05 | ED_ITS ---
Discharge Plan Disposition Patient Disposition: Home, Self-Care Condition: Good Prescriptions Prescriptions: No Action amoxicillin-pot clavulanate 875-125 mg tablet 1 tab PO BID 10 Days Qty: 20 0RF uqyffmmblyoxrhl-yfhglrgoy-YG [Bromfed DM] 2-30-10 mg/5 mL syrup 10 ml PO Q4-6H PRN (Reason: cold symptoms) Qty: 118 1RF levothyroxine 50 mcg tablet 50 mcg PO DAILY Qty: 30 3RF levothyroxine 200 mcg tablet 200 mcg PO DAILY Qty: 30 2RF methocarbamol 750 mg tablet 1,500 mg PO TID Qty: 180 1RF amitriptyline 10 mg tablet 10 mg PO TID 30 Days Qty: 90 2RF meloxicam 15 mg tablet 15 mg PO DAILY Qty: 90 1RF lisinopril 10 mg tablet See Rx Instructions .ROUTE .COMPLEX Qty: 90 0RF Dose Instruction: TAKE 1 TABLET BY MOUTH ONCE DAILY Rx Instructions: TAKE 1 TABLET BY MOUTH ONCE DAILY cetirizine [Allergy Relief (cetirizine)] 10 mg tablet See Rx Instructions .ROUTE .COMPLEX Qty: 30 3RF Dose Instruction: TAKE 1 TABLET BY MOUTH EVERY DAY Rx Instructions: TAKE 1 TABLET BY MOUTH EVERY DAY cholecalciferol (vitamin D3) 1,250 mcg (50,000 unit) capsule 1,250 mcg PO WEEKLY Qty: 5 3RF Referrals Follow up/Referrals: Sourav Ambrocio MD [Primary Care Provider, Internal Medicine] - See instructions Neslon García MD [Staff Physician, Oncology] - See instructions Activity Restrictions/Add. Instructions Additional Instructions/Restrictions: Follow-up with your primary care provider. Return to the emergency department if you have any warmth, spreading redness, develop fevers or if you develop severe pain. Call Hematology and let them know that you need an appointment. Clinical Impressions Clinical Impression: Petechiae, Vasculitis Instructions Patient Instructions: DI for Petechiae, DI for Vasculitis Print Language Print Language: Latvian Discharge ED Provider: Leona Mascorro Adult HPI General Chief complaint: Skin/Abscess/Foreign Body Stated complaint: rash on right leg Time Seen by Provider: 10/16/24 10:18 Mode of Arrival: Ambulatory Source of Information: Patient Description of Symptoms (Recalled from ER Triage Doc. by RN): pt presents to ED with c/o right leg burning and skin rash ongoing since saturday. pt reports that she has lymphadema and does wear compression socks for this. but has not wear them since rash appeared. History of Present Illness HPI narrative: Patient is a 39-year-old female with history of lymphedema who presents to the emergency department for a rash on her right lower extremity. Patient states that she sent from her primary care doctor to be evaluated for a DVT. She reports a rash on her right lower leg started two days ago. No significant change. No spreading. No fever. No recent infectious sx. No hx of blood clots. No leg pain. Related Data Previous Rx's ?Medication ?Instructions ?Recorded levothyroxine 50 mcg tablet 50 mcg PO DAILY #30 tabs 0 08/08/23 levothyroxine 200 mcg tablet 200 mcg PO DAILY #30 tabs 12/24/23 methocarbamol 750 mg tablet 1,500 mg (2 x 750 mg) PO T ID #180 05/04/24 tabs amitriptyline 10 mg tablet 10 mg PO TID 30 days #90 ta bs 05/15/24 meloxicam 15 mg tablet 15 mg PO DAILY #90 tabs 09/25 amoxicillin 875 mg-potassium 1 tab PO BID 10 days #20 tabs 07/20/24 clavulanate 125 mg tablet abjxplfcsawnwdl-entajxayxttuitz-MF 10 ml PO Q4-6H PRN cold symptoms 07/20/24 2 mg-30 mg-10 mg/5 mL oral syrup #118 mL (Bromfed DM) lisinopril 10 mg tablet See Rx Instructions .Route 0 09/03/24 .COMPLEX #90 tabs cetirizine 10 mg tablet (Allergy See Rx Instructions . Route 09/14/24 Relief (cetirizine)) .COMPLEX #30 tabs cholecalciferol (vitamin D3) 1,250 1,250 mcg PO WEEKLY #5 caps 09/21/24 mcg (50,000 unit) capsule Allergies Allergy/AdvReac Type Severity Reaction Status Date / Time hydrocodone (From Lortab) Allergy Hives Verified 10/16/24 10:37 latex Allergy Rash Verified 10/16/24 10:37 Sulfa (Sulfonamide Allergy Swelling Verified 10/16/24 10:37 Antibiotics) of Lip/Tongue/Throat [facility] Disclaimer: The information contained in this section may have been updated after the patient was seen, as this information can be updated by other users. Medical History Hypertension Callus of foot Nausea Calcaneal spur of left foot Metatarsalgia of both feet Forearm sprain Otitis media Sinusitis Surgical History Previous section H/O tubal ligation History of cholecystectomy Family History Grandmother Cancer Coronary artery disease Kidney disease Grandfather Coronary artery disease Father Coronary artery disease Diabetes Heart attack Hypertension Kidney disease Mother Diabetes Stroke Social History Smoking Status: Never smoker alcohol intake: never substance use type: denies use current occupational status: unemployed Travel in the last 8 weeks?: None household members: family and children housing: house Have you lived/traveled outside US in past 30 days?: No Contact w/someone who lives/traveled outside US past 30 days?: No Exposure to someone with infectious disease in past 14 days?: No Do you have a fever (greater than 100.4 F or 38 C)?: No Have you tested positive for COVID-19?: No Exposed to someone with COVID-19 in past 14 days?: No Do you have a sore throat?: No Do you have a cough?: No Do you have any weakness?: No Do you have any diarrhea?: No Are you experiencing any unusual bleeding?: No Do you have any muscle aches/pain?: No Do you have any abdominal pain?: No Are you experiencing loss of taste or smell?: No Other Medical History Have you received the Flu Vaccine for this season: No Have you received the Pneumonia Vaccine: No ROS Obtained: Yes All systems reviewed & no additional complaints except as documented and Yes Systems reviewed as appropriate & no additional complaints except as documented Physical Exam General General appearance: alert and in no apparent distress Head Head exam: atraumatic, normocephalic and normal inspection Eye Eye exam: Present normal appearance, PERRL and EOMI; Absent scleral icterus ENT ENT exam: Present normal exam and normal external ear exam Neck Neck exam: Present normal inspection and full ROM Chest Chest inspection: Present normal inspection and symmetric chest wall rise Respiratory Respiratory exam: Present normal lung sounds bilaterally; Absent respiratory distress or wheezes Cardiovascular Cardiovascular exam: Present regular rate, normal rhythm and normal heart sounds Abdominal Exam Abdominal exam: Present soft and distention; Absent tenderness, guarding or rebound Extremities Exam Extremities exam: Present normal inspection and full ROM Back Exam Back exam: Present normal inspection and full ROM Neurological Exam Neurological exam: Present alert and oriented X3 Psychiatric Psychiatric exam: Present normal affect and normal mood Skin Skin exam: Present warm, dry and other (non-blanching rash on right proximal lower leg, no warmth, redness) Medical Decision Making Medical Records Medical records reviewed: Yes I reviewed the patient's medical records. Screening: Per USPSTF and CDC recommendations, given the prevalence of disease in our region, it is our hospital?s policy to screen for HIV and viral Hepatitis for all patients aged 18 and over and those with ongoing risk factors. Donal Inquiry Pt receiving controlled substance: No Vital Signs: 10/16/24 10:30 10/16/24 10:30 10/16/24 11:36 Temperature 98.2 F Temperature Source Oral Pulse Rate 71 Pulse Rate [Left Radial] 86 Respiratory Rate 19 Blood Pressure 137/77 154/84 H Blood Pressure [Right Arm] 151/89 H Blood Pressure Mean 95 Blood Pressure Mean [Right Arm] 109 Blood Pressure Source Automatic Cuff Blood Pressure Source [Right Arm] Automatic Cuff Blood Pressure Position Blood Pressure Position [Right Arm] Supine 02 Sat by Pulse Oximetry 98 98 Oxygen Delivery Method Room Air Room Air 10/16/24 12:00 10/16/24 13:44 Temperature 98.4 F Temperature Source Oral Pulse Rate 62 Pulse Rate [Left Radial] Respiratory Rate 16 Blood Pressure 159/99 H 146/95 H Blood Pressure [Right Arm] Blood Pressure Mean 119 Blood Pressure Mean [Right Arm] Blood Pressure Source Automatic Cuff Blood Pressure Source [Right Arm] Blood Pressure Position Supine Blood Pressure Position [Right Arm] 02 Sat by Pulse Oximetry Oxygen Delivery Method Room Air Lab Data Lab results reviewed: Yes I reviewed the patient's lab results. Lab Results 10/16/24 10:43: WBC 8.6, RBC 4.11 L, Hgb 12.1 L, Hct 37.4, MCV 91.0, MCH 29.4, MCHC 32.4, RDW 13.8, Plt Count 258, MPV 10.3, Neut % (Auto) 61.5, Lymph % (Auto) 28.7, [place] % (Auto) 6.0, Eos % (Auto) 2.5, Baso % (Auto) 0.7, Neut # (Auto) 5.3, Lymph # (Auto) 2.5, [place] # (Auto) 0.5, Eos # (Auto) 0.2, Baso # (Auto) 0.1, PT 10.7, INR 0.96, APTT 25.8, Sodium 138, Potassium 3.9, Chloride 102, Carbon Dioxide 29, Anion Gap 10.9, BUN 11, Creatinine 0.70, Estimated Creat Clear 100, Estimated GFR 93, Est GFR ( Amer) 112, Glucose 103 H, Calcium 9.3, Total Bilirubin 0.9, AST 27, ALT 22, Alkaline Phosphatase 108, Total Protein 8.2, Albumin 4.5, Globulin 3.7 H, Albumin/Globulin Ratio 1.2 10/16/24 10:43 10/16/24 10:43 Orders (Tests/Meds): ORDERS Category Date Time Status CBC w/Auto Diff [Complete Blood Count Auto Diff] Stat Lab 10/16/24 10:43 Completed CMP [Comprehensive Metabolic Panel] Stat Lab 10/16/24 10:43 Completed PT/INR [Prothrombin Time INR] Stat Lab 10/16/24 10:43 Completed PT/PTT Stat Lab 10/16/24 10:43 Completed CA venous doppler LE RT Stat Y 10/16/24 12:10 Completed Medical Decision Narrative: Patient is an otherwise healthy 39-year-old female with past medical history of lymphedema presented to the emergency department with right lower extremity rash this morning, patient is hemodynamically stable, vital signs stable Differential includes not limited to: Cellulitis, vasculitis, DVT, lymphangitis, amongst others. Patient's rash is non-blanching. Labs were sent to evaluate for any coagulopathies. No warmth no swelling redness to suggest cellulitis. No signs of lymphangitis at this time. DVT ultrasound was obtained which was negative. Patient's labs were reviewed and interpreted by myself and showed no acute pathology for abnormalities. Patient's rash most consistent with vasculitis at this time. Patient was sent for hematology follow-up which is recommended to follow-up with primary care provider. Patient relates that she has been stable condition. Critical Care Critical Care Time Critical Care Time: No
--- NOTE | 2024-10-16 12:10 | CA_ITS ---
FINAL REPORT TECHNIQUE: Compression mann scale and Doppler evaluation CLINICAL HISTORY: REDNESS AND RASH RIGHT CALF SINCE DEANDRA,LYMPHYEDEMA,OBESITY FINDINGS: Femoral and popliteal veins show normal compressibility and flow. Visualized portion of the calf veins are patent by Doppler exam. IMPRESSION: No evidence of right lower extremity deep venous thrombosis Reviewed, Interpreted and Dictated by Shubham Garcia MD Transcribed by Meredith Medina Authenticated and [facility]
[2024-10-16 13:44] VITALS: BP 146/95; PULSE 62; RESP 16; TEMP 36.9; O2SAT 98
== END 2024-10-16 13:51 | disposition home or self-care (01) ==
PROVIDERS: Emergency Provider Student in an Organized Health Care Education/Training Program; PCP Family Medicine
DX: R23.3 Spontaneous ecchymoses (principal); I77.6 Arteritis, unspecified; I89.0 Lymphedema, not elsewhere classified; L03.90 Cellulitis, unspecified; I10 Essential (primary) hypertension
CPT/HCPCS: 80053; 85025; 85610; 85730; 93971; 99285

== ENCOUNTER 2025-01-25 13:03 | Emergency (ER) | payer MEDICAID, SELFPAY ==
--- OUTSIDE RECORDS SUMMARY | 2024-12-02 10:40 | XMS_ITS | Encounter Summary ---
Author Organization [facility] Address [address] [place] [address] Care Team Providers Care Leather Fitter Name Role Phone Dorothy Hernández APRN Primary Care Provider [phone] Reason for Referral * Consultation (Routine) - Authorized Specialty Diagnoses / Procedures Referred By Contac t Referred To Contact Diagnoses Morbid obesity with BMI of 60.0-69.9, adult (CMS/HCC) Congenital hypothyroidism without goiter Sona Wallace DO [address] [place] [address] Phone: tel: fax: Referral ID Status Reason Start Date Expiration Date V isits Requested Visits Authorized [id number] Authorized 12/02/2024 06/03/2026 1 1 Reason for Visit * Reason Comments Hypothyroidism, unspecified type Encounter Details Date Type Department Care Team (Late st Contact Info) Description 12/02/2024 11:40 AM EDT Office Visit [facility] [address] [place] [address] Sona Wallace DO [address] [place] [address] Congenital hypothyroidism without goiter (Primary Dx); Morbid obesity with BMI of 60.0-69.9, adult (CMS/HCC); Medication management; Obstructive sleep apnea syndrome; Primary hypertension Social History Tobacco Use Types Packs/Day Years Used Date Smoking Tobacco: Never Passive Smoke Exposure: Never Smokeless Tobacco: Never Tobacco Cessation:Counseling Given: Not Answered Alcohol Use Standard Drinks/Week Comments Not Currently [...] Orientation Straight 04/25/2021 10 :30 PM EST documented as of this encounter Last Filed Vital Signs Vital Sign Reading Time Taken Comments Blood Pressure 118/65 12/02/2024 11:21 AM EDT Pulse 80 12/02/2024 11:21 AM EDT Temperature - - Respiratory Rate - - Oxygen Saturation - - Inhaled Oxygen Concentration - - Weight 182 kg (400 lb 2.2 oz) 12/02/2024 11:21 A M EDT Height 167.6 cm (5' 6 ) 12/02/2024 11:21 AM EDT Body Mass Index 64.58 12/02/2024 11:21 AM EDT documented in this encounter Miscellaneous Notes * Addendum Note - Billy Montiel MD - 12/02/2024 11:40 AM EDTAddended by: BILLY MONTIEL on: 12/03/2024 06:21 PM Modules accepted: Orders * Progress Notes - Billy Montiel MD - 12/02/2024 11:40 AM EDT Established Patient Visit [facility] Chief complaint: Congenital Hypothyroidism HPI Natacha Dickson is a 39 y.o. female who presents for follow up. No recent illness or hospitalizations since previous visit. She was last seen by Dr. Holland on 03/02/2024. Most recent TFTs 05/14/2024 TSH 0.43 and FT4 1.6. Currently on levothyroxine 250mcg daily. She has met with Bariatric Surgeons since last visit. They wanted to start semaglutide but she was unable to afford medication. She is not currently on any medication for weight loss. She states she takes her l evothyroxine daily and has only missed a few doses since last visit. Denies any trouble swallowing or neck enlargement. Thyroid Current Symptoms: denies fatigue, weight changes, heat/cold intolerance, bowel/skin changes or CVS symptoms Change in Symptoms: remain unchanged Last Visit: 02/21/2024 Diagnosis: hypothyroidism Diagnosis Date: At per patient Current Medications: Levothyroxine 250 mcg daily Compliance: good Reports taking on empty stomach without other medications. Most Recent thyroid labs: Lab Results Component Value Date TSH 22.30 (H) 12/02/2024 FREET4 1.2 12/02/2024 Review of Systems Constitutional: Positive for fatigue and unexpected weight change (weight gain and difficulty losing any weight). Eyes: Negative for visual disturbance. Respiratory: Negative for shortness of breath. Cardiovascular: Positive for leg swelling (has chronic bilateral lymphedema). Negative for chest pain and palpitations. Gastrointestinal: Negative for abdominal pain, nausea and vomiting. Endocrine: Negative for cold intolerance and heat intolerance. Musculoskeletal: Negative for arthralgias. Neurological: Negative for light-headedness. Hematological: Does not bruise/bleed easily. Psychiatric/Behavioral: Negative for confusion and decreased concentration. The following portions of the chart were reviewed this encounter and updated as appropriate: Past Medical History: Diagnosis Date Dental caries Dental caries 09/14/2021 Hypertension Hypothyroid Hypothyroidism 02/29/2024 Jaw pain Obesity Sleep apnea Past Surgical History: Procedure Laterality Date SECTION, CLASSIC GALLBLADDER SURGERY MOUTH SURGERY TUBAL LIGATION WISDOM TOOTH EXTRACTION Family History Problem Relation Name Age of Onset Diabetes Mother Renee contreras Diabetes Father Heriberto Dickson Heart attack Father Heriberto Dickson Social History Tobacco Use Smoking status: Never Passive exposure: Never Smokeless tobacco: Never Substance Use Topics Alcohol use: Not Currently Current Outpatient Medications Medication Instructions amitriptyline (ELAVIL) 10 mg, Nightly cetirizine (ZYRTEC) 10 mg, Daily cholecalciferol (VITAMIN D-3) 50,000 Units, Weekly dexamethasone (Decadron) 1 MG tablet Take 1 tablet when directed ibuprofen 600 mg, Oral, Every 6 hours PRN levothyroxine (SYNTHROID, LEVOXYL) 200 mcg, Oral, Daily before breakfast, TAKE 1 TABLET (200 MCG) BY MOUTH DAILY IN ADDITION TO 50 MCG FOR A TOTAL DOSE OF 250 MCG OF LEVOTHYROXINE DAILY PATIENT MUST ATTEND FOLLOW UP ON 12/02/2024 FOR ANY ADDITIONAL REFILLS. levothyroxine (SYNTHROID, LEVOXYL) 50 mcg, Oral, Daily before breakfast, IN COMBINATION WITH 200 MCG TABLET FOR TOTAL DAILY DOSE OF 250 MCG EVERY DAY PATIENT MUST ATTEND FOLLOW UP ON 12/02/2024 FOR ANY ADDITIONAL REFILLS. lisinopril 10 mg, Oral, Daily meloxicam (MOBIC) 15 mg, Daily methocarbamol (Robaxin) 750 MG tablet Semaglutide-Weight Management (WEGOVY) 0.25 mg, Subcutaneous, Weekly Visit Vitals BP 118/65 Pulse 80 Ht 1.676 m (5' 6 ) Wt 182 kg (400 lb 2.2 oz) BMI 64.58 kg/m?? OB Status Having periods Smoking Status Never BSA 2.91 m?? Physical Exam Constitutional: Appearance: Normal appearance. She is obese. Cardiovascular: Rate and Rhythm: Normal rate and regular rhythm. Pulses: Normal pulses. Pulmonary: Effort: Pulmonary effort is normal. Breath sounds: Normal breath sounds. Abdominal: General: Abdomen is flat. Bowel sounds are normal. Palpations: Abdomen is soft. Musculoskeletal: Cervical back: Normal range of motion. Right lower leg: Edema present. Left lower leg: Edema present. Comments: Chronic bilateral LE lymphedema Skin: General: Skin is warm. Capillary Refill: Capillary refill takes less than 2 seconds. Neurological: General: No focal deficit present. Mental Status: She is alert and oriented to person, place, and time. Psychiatric: Behavior: Behavior normal. Imaging Thyroid US 11/2023- heterogenous thyroid without nodules Lab review: Normal 1 mg DST test 12/2023, cortisol 0.6 Latest Reference Range & Units 12/27/23 14:08 TSH 0.40 - 4.20 uIU/mL 4.85 (H) Free T4 0.8 - 1.7 ng/dL 1.1 Assessment and Plan: Natacha was seen today for hypothyroidism, unspecified type. Diagnoses and all orders for this visit: Congenital hypothyroidism without goiter (Primary) - TSH; Future - T4, free; Future - Follow Up [facility]; Future Morbid obesity with BMI of 60.0-69.9, adult (CMS/[facility]) - Follow Up [facility]; Future Medication management - TSH; Future - T4, free; Future - Follow Up [facility]; Future Obstructive sleep apnea syndrome Primary hypertension - Follow Up [facility]; Future Hypothyroidism, likely congenital -Clinically euthyroid -Current regimen: Levothyroxine 250 mcg daily (dose decreased from 275mcg since last visit) PLAN: -Will check TSH and FT4 today -Continue current dose of Levothyroxine and adjust if needed pending labs -Reviewed taking the levothyroxine on empty stomach without other meds Obesity -Body mass index is 64.58 kg/m??. -she has met with bariatric surgeons. Not currently planning to undergo surgery at this time. -Should discuss with them weight loss goal needed prior to moving forward with surgery HTN - BP at goal this visit 118/65 - Continue lisinopril 10 mg daily Sleep apnea -on CPAP with good compliance RTC in 1 year Billy Montiel MD Endocrinology Fellow Pager: [phone], [facility] Chat Preferred ADDENDUM TSH elevated to 22. Increased levothyroxine from 250 to 275 with repeat labs in 2 months. Cosigned by Sona Wallace DO at 12/04/2024 7:25 AM EDT Associated attestation - Sona Wallace DO - 12/04/2024 7:25 AM EDT Signature only. documented in this encounter Plan of Treatment Upcoming Encounters Date Type Department Care Team (Late st Contact Info) Description 12/02/2025 11:00 AM EDT Office Visit [facility] [address] [place] [address] Elizabeth Fontanez, [employer] [address] [place] [address] Scheduled Orders Name Type Priority Associated Diagnoses Orde r Schedule TSH Lab Routine Congenital hypothyroidism without goiter Medication management Expected: 01/03/2025 (Approximate), Expires: 06/06/2026 T4, free Lab Routine Congenital hypothyroidism without goiter Medication management Expected: 01/03/2025 (Approximate), Expires: 06/06/2026 Scheduled Referrals Name Type Priority Associated Diagnoses Orde r Schedule Follow Up [facility] Outpatient Referral Routine Morbid obesity with BMI of 60.0-69.9, adult (CMS/HCC) Congenital hypothyroidism without goiter Medication management Primary hypertension Expected: 12/02/2025, Expires: 06/05/2026 documented as of this encounter Results * T4, free (12/02/2024 11:53 AM EDT) Free T4, Plasma 1.2 0.8 - 1.7 ng/dL 12/02/2024 3:32 PM EDT [facility] Blood Venous blood specimen / Unknown Venipuncture / Unknown 12/02/2024 11:53 AM EDT 12/02/2024 11:53 AM EDT Narrative [facility] - 12/02/2024 3:32 PM EDT Free T4 Trimester Specific Ranges 1st Trimester 0.9 - 1.50 ng/dL 2nd Trimester 0.7 - 1.40 ng/dL 3rd Trimester 0.7 - 1.24 ng/dL us Sona Wallace DO LAB BLOOD ORDERABLES Final Result [facility] [address] [place] [address] * (ABNORMAL) TSH (12/02/2024 11:53 AM EDT) Thyroid Stimulating Hormone, Plasma 22.30(H) 0.40 - 4.20 uIU/mL 12/02/2024 3:32 PM EDT [facility] Blood Venous blood specimen / Unknown Venipuncture / Unknown 12/02/2024 11:53 AM EDT 12/02/2024 11:53 AM EDT Narrative [facility] - 12/02/2024 3:32 PM EDT Trimester Specific Ranges TSH ( IU/mL) 1st Trimester 0.1 - 3.0 2nd Trimester 0.19 - 4.06 3rd Trimester 0.3 - 3.7 us Sona Wallace DO LAB BLOOD ORDERABLES Final Result [facility] [address] [place] [address] documented in this encounter Visit Diagnoses Diagnosis Congenital hypothyroidism without goiter- Primary Congenital hypothyroidism Morbid obesity with BMI of 60.0-69.9, adult (CMS/[facility]) Medication management Obstructive sleep apnea syndrome Obstructive sleep apnea (adult) (pediatric) Primary hypertension Unspecified essential hypertension documented in this encounter Additional Health Concerns Assessment Noted Time PHQ-9 Depression Total Score: 0 05/15/19 25 1:57 PM EDT A Body Mass Index follow-up plan has been documented for the patient 12/03/2024 10:31 AM EDT documented as of this encounter Care Teams Leather Fitter Relationship Specialty Start Date End Date Dorothy Hernández APRN [address] [place] [address] PCP - General 04/04/21 12/06/24 documented as of this encounter
[2025-01-25 13:09] VITALS: BP 169/106; PULSE 86; RESP 18; TEMP 36.5; O2SAT 98; BMI 64.5
--- NOTE | 2025-01-25 13:12 | XR_ITS ---
FINAL REPORT CLINICAL HISTORY: pain from fall, 4th digit pain with bruising FINDINGS: RIGHT HAND Three views demonstrate no acute fracture or dislocation. The visualized joint spaces are normally aligned. The soft tissues are unremarkable. IMPRESSION: No acute bony abnormality. Reviewed, Interpreted and Dictated by Megan Lenz MD Transcribed by Hannah Escoto Authenticated and [facility]
--- NOTE | 2025-01-25 13:13 | ED_ITS ---
<Statement entered by Michele Jarrett MD - 01/25/25 14:56> I was consulted by the NIEVES, and we discussed the complexity of the problems being addressed. I approved the treatment and management plan for this patient's care in the emergency department, thus performing a substantive portion of the medical decision making. Michele Jarrett MD, JASON, FACEP Discharge Plan Disposition Chief Complaint: Extremity Injury, Upper Prescriptions Prescriptions: No Action furosemide [Lasix] 40 mg tablet 40 mg PO DAILY Qty: 30 0RF pseudoephedrine HCl 120 mg tablet extended release 120 mg PO Q12H Qty: 20 1RF prednisone 50 mg tablet 50 mg PO DAILY Qty: 7 0RF levothyroxine 50 mcg tablet 50 mcg PO DAILY Qty: 30 3RF levothyroxine 200 mcg tablet 200 mcg PO DAILY Qty: 30 2RF amitriptyline 10 mg tablet 10 mg PO TID 30 Days Qty: 90 2RF meloxicam 15 mg tablet 15 mg PO DAILY Qty: 90 1RF cetirizine [Allergy Relief (cetirizine)] 10 mg tablet See Rx Instructions .ROUTE .COMPLEX Qty: 30 3RF Dose Instruction: TAKE 1 TABLET BY MOUTH EVERY DAY Rx Instructions: TAKE 1 TABLET BY MOUTH EVERY DAY cholecalciferol (vitamin D3) 1,250 mcg (50,000 unit) capsule 1,250 mcg PO WEEKLY Qty: 5 3RF methocarbamol 750 mg tablet See Rx Instructions .ROUTE .COMPLEX Qty: 180 0RF Dose Instruction: TAKE 2 TABLETS BY MOUTH ORALLY THREE TIMES A DAY Rx Instructions: TAKE 2 TABLETS BY MOUTH ORALLY THREE TIMES A DAY lisinopril 10 mg tablet 10 mg PO DAILY Qty: 90 0RF Referrals Follow up/Referrals: Sourav Ambrocio MD [Primary Care Provider, Internal Medicine] - See instructions Print Language Print Language: Slovak Discharge ED Provider: Michele Jarrett General Adult HPI General Chief complaint: Extremity Injury, Upper Stated complaint: AO- fall-01/24/25, pain and swelling R Ring finger Time Seen by Provider: 01/25/25 13:10 History of Present Illness HPI narrative: 39-year-old female presents to the ED today for complaint of right hand pain after falling in the mud yesterday. She has pain within the right ring finger. She has no movement without pain. It is swollen. Related Data Previous Rx's ?Medication ?Instructions ?Recorded levothyroxine 50 mcg tablet 50 mcg PO DAILY #30 tabs 0 08/08/23 levothyroxine 200 mcg tablet 200 mcg PO DAILY #30 tabs 12/24/23 amitriptyline 10 mg tablet 10 mg PO TID 30 days #90 ta bs 05/15/24 meloxicam 15 mg tablet 15 mg PO DAILY #90 tabs 040 09/25 cetirizine 10 mg tablet (Allergy See Rx Instructions . Route 09/14/24 Relief (cetirizine)) .COMPLEX #30 tabs cholecalciferol (vitamin D3) 1,250 1,250 mcg PO WEEKLY #5 caps 09/21/24 mcg (50,000 unit) capsule methocarbamol 750 mg tablet See Rx Instructions .Route 12/07/24 .COMPLEX #180 tabs furosemide 40 mg tablet (Lasix) 40 mg PO DAILY fluid r etention #30 01/06/25 tabs prednisone 50 mg tablet 50 mg PO DAILY #7 tabs 01/06 pseudoephedrine HCl 120 mg 120 mg PO Q12H congestion # 20 tabs 01/06/25 tablet,extended release lisinopril 10 mg tablet 10 mg PO DAILY #90 tabs 01/02 04/28 Allergies Allergy/AdvReac Type Severity Reaction Status Date / Time hydrocodone (From Lortab) Allergy Hives Verified 01/06/25 14:48 latex Allergy Rash Verified 01/06/25 14:48 Sulfa (Sulfonamide Allergy Swelling Verified 01/06/25 14:48 Antibiotics) of Lip/Tongue/Throat PFSH [facility] Disclaimer: The information contained in this section may have been updated after the patient was seen, as this information can be updated by other users. Medical History Hypertension Callus of foot Nausea Calcaneal spur of left foot Metatarsalgia of both feet Forearm sprain Otitis media Sinusitis Surgical History Previous section H/O tubal ligation History of cholecystectomy Family History Grandmother Cancer Coronary artery disease Kidney disease Grandfather Coronary artery disease Father Coronary artery disease Diabetes Heart attack Hypertension Kidney disease Mother Diabetes Stroke Social History Smoking Status: Never smoker alcohol intake: never substance use type: denies use current occupational status: unemployed Travel in the last 8 weeks?: None household members: family and children housing: house Have you lived/traveled outside US in past 30 days?: No Contact w/someone who lives/traveled outside US past 30 days?: No Exposure to someone with infectious disease in past 14 days?: No Do you have a fever (greater than 100.4 F or 38 C)?: No Have you tested positive for COVID-19?: No Exposed to someone with COVID-19 in past 14 days?: No Do you have a sore throat?: No Do you have a cough?: No Do you have any weakness?: No Do you have any diarrhea?: No Are you experiencing any unusual bleeding?: No Do you have any muscle aches/pain?: No Do you have any abdominal pain?: No Are you experiencing loss of taste or smell?: No Other Medical History Have you received the Flu Vaccine for this season: No Have you received the Pneumonia Vaccine: No ROS Obtained: Yes Systems reviewed as appropriate & no additional complaints except as documented Constitutional Constitutional: Reports as per HPI Physical Exam General General appearance: alert and in no apparent distress Head Head exam: normocephalic Eye Eye exam: Present PERRL and EOMI ENT ENT exam: Present normal oropharynx and mucous membranes moist Neck Neck exam: Present full ROM and trachea midline Respiratory Respiratory exam: Present normal lung sounds bilaterally Cardiovascular Cardiovascular exam: Present regular rate, normal rhythm, normal heart sounds, +S1 and +S2 Extremities Exam Extremities exam: Present normal inspection, tenderness (Right ring finger pain) and normal capillary refill Neurological Exam Neurological exam: Present alert and oriented X3 Skin Skin exam: Present warm and dry Medical Decision Making Medical Records Screening: Per USPSTF and CDC recommendations, given the prevalence of disease in our region, it is our hospital?s policy to screen for HIV and viral Hepatitis for all patients aged 18 and over and those with ongoing risk factors. Donal Inquiry Pt receiving controlled substance: No Donal was queried for this patient: No Vital Signs: 01/25/25 13:09 Temperature 97.7 F Temperature Source Oral Pulse Rate [Radial] 86 Respiratory Rate 18 Blood Pressure [Right Arm] 169/106 H Blood Pressure Mean [Right Arm] 127 Blood Pressure Source [Right Arm] Automatic Cuff Blood Pressure Position [Right Arm] Sitting 02 Sat by Pulse Oximetry 98 Oxygen Delivery Method Room Air Orders (Tests/Meds): ORDERS Category Date Time Status Hand XR right minimum 3 views [XR hand RT min 3V] Stat Exams 01/25/25 13:12 Taken HIV Combo Stat Lab 01/25/25 13:15 Ordered Hepatitis C Ab Qual. W/ RFX Stat Lab 01/25/25 13:15 Ordered Medical Decision Narrative: patient is a 39-year-old female presenting to the emergency department for evaluation of right ring finger after falling in the mud yesterday. Patient is hemodynamically stable and nontoxic-appearing upon arrival, afebrile. D ifferential diagnosis includes right ring finger fracture versus sprain or strain. Workup will be conducted with specific imaging. X-ray read by Dr. Jarrett is negative. Patient and I discussed follow-up care. Patient safe for discharge home. Critical Care Critical Care Time Critical Care Time: No
--- OUTSIDE RECORDS SUMMARY | 2025-01-25 13:19 | XMS_ITS | Encounter Summary ---
Author Organization [employer] ([place], [place], [place], [place], [place]) Address [address] [place] [address] Care Team Providers Care Formation Fracturing Operator Name Role Phone Unavailable Primary Care Provider Unavailabl e Encounter Details Date Type Department Care Team (Late st Contact Info) Description 05/09/2020 Transcribed Document [facility] [place] Family Medicine [facility] [place] [address] ProviderRuperto MD [address] [place] [address] Social History Tobacco Use Types [...] - Historical ProviderMD - 05/09/2020 9:26 AM IT HELP DESK ANALYST Patient: PASCALE BOOTHE Age: 34 Years Sex: [...] 05/09/2020 06:59 EST Electronically signed by Jimmy, Hector Conversion Insurance Healthcare Representative Cerner at 06/20/2022 6:11 PM CDT documented in this encounter Plan of Treatment Not on file documented as of this encounter Visit Diagnoses Not on filedocumented in this encounter
--- OUTSIDE RECORDS SUMMARY | 2025-01-25 13:19 | XMS_ITS | Encounter Summary ---
Author Organization [employer] ([place], [place], [place], [place], [place]) Address [address] [place] [address] Care Team Providers Care Cutting And Boning Supervisor Name Role Phone Unavailable Primary Care Provider Unavailabl e Encounter Details Date Type Department Care Team (Late st Contact Info) Description 05/08/2020 Transcribed Document [facility] [place] [facility] [place] [address] ProviderRuperto MD [address] [place] [address] Social History Tobacco Use [...] - Historical ProviderMD - 05/08/2020 5:00 AM AUTO GLASS INSTALLER Chart Check - Review Order Profile Entered [...]
--- OUTSIDE RECORDS SUMMARY | 2025-01-25 13:19 | XMS_ITS | Clinical Summary ---
Author Organization [facility] Address [address] [place] [address] Care Team Providers Care Marketing Rep Name Role Phone Sourav Ambrocio MD Primary Care Provider Mariana vailable Allergies Active Allergy Reactions Criticality Noted Date [...] time each day. 30 tablet 1 2 01/02/20 28 Active amitriptyline (Elavil) 10 MG tablet Take 1 tablet (10 mg) by mouth nightly. 4 Active cetirizine (ZyrTEC) 10 MG tablet Take 1 tablet (10 mg) by mouth daily. 4 Active Vitamin D3 1.25 MG (73275 UT) capsule Take 1 capsule (50,000 Units) by mouth 1 (one) time per week. 4 Active meloxicam (Mobic) 15 MG tablet Take 1 tablet (15 mg) by mouth daily. 4 Active dexamethasone (Decadron) 1 MG tabletIndicatio ns:Abnormal weight gain Take 1 tablet when directed 2 tablet 4 Active Additional Information Patient not taking.Reported on 12/02/2024 methocarbamol (Robaxin) 750 MG tablet Active Semaglutide-Dung ght Management (Wegovy) 0.25 MG/0.5ML solution auto-injector Inject 0.25 mg under the skin 1 (one) time per week. 2 mL Active Additional Information Patient not taking.Reported on 12/02/2024 levothyroxine (Synthroid, Levoxyl) 137 MCG tablet Take 2 tablets by mouth daily. 180 tablet 3 5 12/04/19 Active Active Problems Problem Noted Date Diagnosed Date Lymphedema 05/18/2024 High cholesterol 05/18/2024 Multiple joint pain 05/18/2024 Hypothyroid 05/05/2024 Hypertension 03/02/2024 Sleep apnea, unspecified 03/02/2024 Hypothyroidism 02/29/2024 Abnormal weight gain 12/27/2023 Morbid obesity with BMI of 60.0-69.9, adult 04/04 Resolved Problems Problem Noted Date Diagnosed Date Resolved Date Dental caries 09/14/2021 11/22/2024 Encounters Date Type Department Care Team Description 12/03/2024 Results Follow-Up [facility] Endocr[facility]ology [address] [place] [address] Billy Montiel MD 12/02/2024 11:40 AM EDT Office Visit [facility] [address] [place] [address] Sona Wallace, Congenital hypothyroidism without goiter (Primary Dx); Morbid obesity with BMI of 60.0-69.9, adult ([facility]); Medication management; Obstructive sleep apnea syndrome; Primary hypertension 12/02/2024 Travel 12/01/2024 Travel from Last 3 Months Family History Medical History Relation Name Comments Diabetes Father Heriberto Dickson Heart attack Father Heriberto Dickson Diabetes Mother Renee contreras Relation Name Status [...] Pulse 80 12/02/2024 11:21 AM EDT Temperature 36.2 C (97.2 F) 05/05/2024 10:36 AM EST Respiratory Rate 16 05/14/2024 1:52 PM EDT Oxygen Saturation 95% 05/14/2024 1:52 PM EDT Inhaled Oxygen Concentration - - Weight 182 kg (400 lb 2.2 oz) 12/02/2024 11:21 A M EDT Height 167.6 cm (5' 6 ) 12/02/2024 11:21 AM EDT Body Mass Index 64.58 12/02/2024 11:21 AM EDT Plan of Treatment Upcoming Encounters Date Type Department Care Team (Late st Contact Info) Description 12/02/2025 11:00 AM EDT Office Visit [facility] Endocrinology [address] [place] [phone] Elizabeth Fontanez, RICE MILLING SUPERVISOR [address] [place] [phone] Health Maintenance Due Date Last Done Comments [...] - Td or Tdap) 07/07/2023 07/06/2013, 11/01/1998 Dental X-Ray: Full Mouth 04/27/2024 04/26/2021 [id number] Vaccine ( - season) 2024 06/23/2021, 07/21/2020, 06/23/2020 [facility]-Influenza Vaccine (#1) 2024 12/11/2021 [facility]-Diabetes: Hemoglobin A1C 11/11/2024 05/14/2024 [facility]-Depression Screening 05/14/2025 025, 05/14/2024, 05/14/2024, Additional history exists [facility]-Zoster Vaccines (1 of 2) 2034 [facility]-Hepatitis B Vaccines Completed 000, 12/02/1998, 11/01/1998 [facility]-HIV Screening Completed 09/14/2021 [facility]-Hepatitis C Screening Completed 09/14/2021 [facility]-Obesity Intervention Completed 025, 05/14/2024, 05/05/2024, Additional history exists [facility]-HIB Vaccines Aged Out [...] Procedure Name Priority Date/Time Associated Diagnosis Comments FREE T4, PLASMA Routine 12/02/2024 11:53 AM EDT Morbid obesity with BMI of 60.0-69.9, adult (CMS/HCC) Congenital hypothyroidism without goiter TSH Routine 12/02/2024 11:53 AM EDT Morbid obesity with BMI of 60.0-69.9, adult (CMS/HCC) Congenital hypothyroidism without goiter HEMOGLOBIN A1C Routine 05/14/2024 2:36 PM EDT [...] Recently Relevant to Health Maintenance Results * (ABNORMAL) TSH (12/02/2024 11:53 AM EDT) Thyroid Stimulating Hormone, Plasma 22.30(H) 0.40 - 4.20 uIU/mL 12/02/2024 3:32 PM EDT [facility] Blood Venous blood specimen / Unknown Venipuncture / Unknown 12/02/2024 11:53 AM EDT 12/02/2024 11:53 AM EDT Narrative [facility] - 12/02/2024 3:32 PM EDT Trimester Specific Ranges TSH ( IU/mL) 1st Trimester 0.1 - 3.0 2nd Trimester 0.19 - 4.06 3rd Trimester 0.3 - 3.7 us Sona Wallace DO LAB BLOOD ORDERABLES Final Result [facility] [address] [place] [address] * T4, free (12/02/2024 11:53 AM EDT) Free T4, Plasma 1.2 0.8 - 1.7 ng/dL 12/02/2024 3:32 PM EDT [facility] Blood Venous blood specimen / Unknown Venipuncture / Unknown 12/02/2024 11:53 AM EDT 12/02/2024 11:53 AM EDT Narrative [facility] - 12/02/2024 3:32 PM EDT Free T4 Trimester Specific Ranges 1st Trimester 0.9 - 1.50 ng/dL 2nd Trimester 0.7 - 1.40 ng/dL 3rd Trimester 0.7 - 1.24 ng/dL us Sona Wallace DO LAB BLOOD ORDERABLES Final Result Performing Organization Address [facility] Co de Phone Number [facility] [address] [place] [address] * Hemoglobin A1c (05/14/2024 2:36 PM EDT) Hemoglobin A1c 5.0 <5.7 % 05/14/2024 6:14 PM EDT [facility] Blood Venous blood specimen / Unknown Venipuncture / Unknown 05/14/2024 2:36 PM EDT 05/14/2024 2:37 PM EDT Narrative [facility] - 05/14/2024 6:14 PM EDT HA1C Interpretive Data: Diagnosis of Diabetes: Diabetic > or = 6.5% Pre-diabetic 5.7 to 6.4% Non-diabetic < or = 5.6% Glycemic Targets for Type I and Type II Diabetics: Non- Adults <7.0% Adults <6.0% Children and Adolescents <7.5% Source: [place] [employer]. Standards of medical care in diabetes,2017. Diabetes Care.2017:40 (suppl 1):S1-S135. HbA1c assay performed by an ion-exchange chromatography method that is certified traceable to the DCCT. us Robyn Beckford APRN LAB BLOOD ORDERABLES Melisa l Result [facility] [address] [place] [address] * HIV 1 & 2 Antibody/Antigen Screen (09/14/2021 10:49 AM EDT) [facility] HIV 1 & 2 Antibody/Anti gen Screen Nonreactive Nonreactive 09/14/2021 12:22 PM EDT [facility] Blood Venous blood specimen / Unknown Venipuncture / Unknown 09/14/2021 10:49 AM EDT 09/14/2021 11:05 AM EDT Reynold Flores MD LAB BLOOD ORDERABLES Final Res ult [facility] [address] [place] [address] * Hepatitis C Antibody - ED (09/14/2021 10:49 AM EDT) [facility] Hepatitis C Antibody Negative Negative 09/14/2021 12:21 PM EDT [facility] Blood Venous blood specimen / Unknown Venipuncture / Unknown 09/14/2021 10:49 AM EDT 09/14/2021 11:05 AM EDT Reynold Flores MD LAB BLOOD ORDERABLES Final Res ult [facility] [address] [place] [address] from Last 3 Months or Most Recently Relevant to Health Maintenance Insurance MEDICAID [facility] MEDICAID DENTAL Care Teams Marketing Rep Relationship Specialty Start Date End Date Sourav Ambrocio MD PCP - General Family Medicine 12/07/24
--- OUTSIDE RECORDS SUMMARY | 2025-01-25 13:19 | XMS_ITS | Clinical Summary ---
Author Organization [employer] ([place], [place], [place], [place], [place]) Address [address] [place] [address] Care Team Providers Care Cotton Roll Packer Name Role Phone Unavailable Primary Care Provider [...]
--- OUTSIDE RECORDS SUMMARY | 2025-01-25 13:19 | XMS_ITS | Encounter Summary ---
Author Organization [employer] ([place], [place], [place], [place], [place]) Address [address] [place] [address] Care Team Providers Care Shoe Shanker Name Role Phone Unavailable Primary Care Provider Unavailabl e Encounter Details Date Type Department Care Team (Late st Contact Info) Description 05/08/2020 Transcribed Document [facility] [place] Family Medicine [facility] [place] [address] ProviderRuperto MD [address] [place] [address] Social History Tobacco Use Types [...] - Historical ProviderMD - 05/08/2020 2:00 AM TEACHER PRIVATE Axle Turner Details Entered On: 05/08/2020 1:41 EST Performed [...] Greer V, RN - 05/08/2020 1:41 EST Electronically signed by Jimmy [facility] Conversion Program Technician Cerner at 06/20/2022 6:21 PM CDT documented in this encounter Plan of Treatment Not on file documented as of this encounter Visit Diagnoses Not on filedocumented in this encounter
--- OUTSIDE RECORDS SUMMARY | 2025-01-25 13:19 | XMS_ITS | Encounter Summary ---
Author Organization [employer] ([place], [place], [place], [place], [place]) Address [address] [place] [address] Care Team Providers Care Jack Machine Operator Name Role Phone Unavailable Primary Care Provider Unavailabl e Encounter Details Date Type Department Care Team (Late st Contact Info) Description 05/08/2020 Transcribed Document [facility] [place] Family Medicine [facility] [place] [address] ProviderRuperto MD [address] [place] [address] Social History Tobacco Use Types [...] - Historical ProviderMD - 05/08/2020 4:07 PM HUB CUTTER UM Authorization Entered On: 05/08/2020 16:07 EST Performed On: 05/08/2020 16:07 EST by DEL HARRISON Rn-Utilization Review Primary Insurance Authorization Authorization and Policy Numbers : Insurance 1 Health Plan: [employer] Policy Number: [id number] Authorization Number: Insurance Primary Name : [employer] Policy Number: [id number] Authorization Status-Primary : Awaiting callback Authorized Service Begin Date-Primary : 05/07/2020 EST Authorization Comments-Primary : Faxed facesheet and orders to [employer] for Inpt notification. Historical Authorization Comments-Primary : No Authorization Comments Found DEL HARRISON Rn-Utilization Review - 05/08/2020 16:07 EST Electronically signed by Jimmy [facility] Conversion Legal Activity Adjudicator Cerner at 06/20/2022 6:16 PM CDT documented in this encounter Plan of Treatment Not on file documented as of this encounter Visit Diagnoses Not on filedocumented in this encounter
--- OUTSIDE RECORDS SUMMARY | 2025-01-25 13:19 | XMS_ITS | Encounter Summary ---
Author Organization [employer] ([place], [place], [place], [place], [place]) Address [address] [place] [address] Care Team Providers Care Floor Framer Name Role Phone Unavailable Primary Care Provider Unavailabl e Encounter Details Date Type Department Care Team (Late st Contact Info) Description 05/07/2020 Transcribed Document [facility] [place] [facility] [place] [address] ProviderRuperto MD [address] [place] [address] Social History Tobacco Use Types [...] - Historical ProviderMD - 05/07/2020 9:37 AM INSPECTION MANAGER Nutrition Assessment Entered On: 05/09/2020 13:15 EST [...] x 3 meals GI: hypoactive BS, LBM /- diarrhea noted, c/o- n/v Skin: incision to [...] Tere Joy Dietitian - 05/09/2020 15:49 EST documented in this encounter Plan of Treatment Not on file documented as of this encounter Visit Diagnoses Not on filedocumented in this encounter
--- OUTSIDE RECORDS SUMMARY | 2025-01-25 13:19 | XMS_ITS | Encounter Summary ---
Author Organization [employer] ([place], [place], [place], [place], [place]) Address [address] [place] [address] Care Team Providers Care Edge Grinder Name Role Phone Unavailable Primary Care Provider Unavailabl e Encounter Details Date Type Department Care Team (Late st Contact Info) Description 05/07/2020 Transcribed Document [facility] [place] Family Medicine [facility] [place] [address] ProviderRuperto MD [address] [place], [place] [id number] Social History Tobacco Use Types Packs/Day Years [...] - Historical ProviderMD - 05/07/2020 1:53 PM SALES REPRESENTATIVE [employer] Pain Assessment Entered On: 05/07/2020 16:05 EST Performed On: 05/07/2020 16:10 EST by TREY NIEVES RN Intervention Information: [email or web address] Performed by TREY [...]
--- OUTSIDE RECORDS SUMMARY | 2025-01-25 13:19 | XMS_ITS | Encounter Summary ---
Author Organization [employer] ([place], [place], [place], [place], [place]) Address [address] [place] [address] Care Team Providers Care Nursery Supervisor Name Role Phone Unavailable Primary Care Provider Unavailabl e Encounter Details Date Type Department Care Team (Late st Contact Info) Description 05/11/2020 Transcribed Document [facility] [place] [facility] [address] ProviderRuperto MD [address] [place], [place] [id number] Social History Tobacco Use Types Packs/Day Years [...] - Historical ProviderMD - 05/11/2020 2:15 PM SEARCH ENGINE OPTIMIZATION SPECIALIST UM Authorization Entered On: 05/11/2020 14:15 EST Performed On: 05/11/2020 14:15 EST by Willow Connelly, Pack Out Operator Primary Insurance Authorization Authorization and Policy Numbers : Insurance 1 Health Plan: [employer] Policy Number: [id number] Authorization Number: Insurance Primary Name : [employer] Policy Number: [id number] Authorization Status-Primary : Awaiting callback Auth/Referral Contact Name-Primary : DC Authorized Service Begin Date-Primary : 05/07/2020 EST Authorization Comments-Primary : Discharge date and summary faxed. Historical Authorization Comments-Primary : Comment 1: no updated information on website (Juliana Fontanez Rn-Utilization Review 05/11/2020 10:07) Comment 2: Faxed facesheet and orders to [employer] for Inpt notification. (DEL HARRISON, Rn-Utilization Review 05/08/2020 16:07) Willow Connelly, Pack Out Operator - 05/11/2020 14:15 EST Electronically signed by Jimmy [facility] Conversion Finished Yarn Examiner Cerner at 06/20/2022 6:24 PM CDT documented in this encounter Plan of Treatment Not on file documented as of this encounter Visit Diagnoses Not on filedocumented in this encounter
--- OUTSIDE RECORDS SUMMARY | 2025-01-25 13:19 | XMS_ITS | Encounter Summary ---
Author Organization Healthcare Address [address] [place] [address] Care Team Providers Care Rotary Cutter Operator Name Role Phone HernándezThomaskristan Koenig HEALTH COMMUNICATIONS SPECIALIST Primary Care Provider [phone]- [phone] Encounter Details Date Type Department Care Team (Latest Contact Info) Description 12/01/2024 Travel Social History Tobacco Use Types Packs/Day Years Used Date Smoking Tobacco: Never Smokeless Tobacco: Never Alcohol Use Standard Drinks/Week Comments Not Currently [...] PM EST documented as of this encounter Plan of Treatment Upcoming Encounters Date Type Department Care Team (Late st Contact Info) Description 12/02/2025 11:00 AM EDT Office Visit [facility] [address] [place] [id number] Elizabeth Fontanez, HEALTH COMMUNICATIONS SPECIALIST [address] [place] [address] documented as of this encounter Visit Diagnoses Not on filedocumented in this encounter Additional Health Concerns Assessment Noted Time PHQ-9 Depression Total Score: 0 05/15/19 1:57 PM EDT A Body Mass Index follow-up plan has been documented for the patient 05/18/2024 9:00 AM EDT documented as of this encounter Care Teams Rotary Cutter Operator Relationship Specialty Start Date End Date Dorothy Hernández APRN [address] [place] [address] PCP - General 04/04/21 12/06/24 documented as of this encounter
--- OUTSIDE RECORDS SUMMARY | 2025-01-25 13:19 | XMS_ITS | Encounter Summary ---
Author Organization [employer] ([place], [place], [place], [place], [place]) Address [address] [place] [address] Care Team Providers Care Refrigeration Service Inspector Name Role Phone Unavailable Primary Care Provider Unavailabl e Encounter Details Date Type Department Care Team (Late st Contact Info) Description 05/09/2020 Transcribed Document [facility] [place] Family Medicine [facility] [place] [address] ProviderRuperto MD [address] [place] [address] Social History Tobacco Use Types [...] - Historical ProviderMD - 05/09/2020 2:00 AM SPRING ASSEMBLER Indoor Sports Centre Manager Details Entered On: 05/09/2020 4:54 EST Performed On: 05/09/2020 2:00 EST by Abeba Henderson RN Order Details Transport Mode Order Detail : Wheelchair Isolation Precautions Order Detail : Standard Precautions Order Detail : 1 IV Order Detail : 1 Oxygen Order Detail : 0 Nurse Collect Order Detail : 0 Lift/Transfer : Minimal Central Line Order Detail : No Room Service : Appropriate Arterial Line : No Patient Needs Meds Crushed/Liquid : No Abeba Henderson, DOMENICO - 05/09/2020 4:54 EST Electronically signed by Jimmy [facility] Conversion Marine Electronics Technician Cerner at 06/20/2022 6:12 PM CDT documented in this encounter Plan of Treatment Not on file documented as of this encounter Visit Diagnoses Not on filedocumented in this encounter
--- OUTSIDE RECORDS SUMMARY | 2025-01-25 13:19 | XMS_ITS | Encounter Summary ---
Author Organization [employer] ([place], [place], [place], [place], [place]) Address [address] [place] [address] Care Team Providers Care Computer Recycling Worker Name Role Phone Unavailable Primary Care Provider Unavailabl e Encounter Details Date Type Department Care Team (Late st Contact Info) Description 05/08/2020 Transcribed Document [facility] [place] Family Medicine [facility] [place] [address] ProviderRuperto MD [facility] [place] [address] Social History Tobacco Use Types [...] Conversion Note - Ruperto ProviderMD - 05/08/2020 10:52 AM CASTING MACHINE ADJUSTER Patient: PASCALE BOOTHE Age: 34 Years Sex: Female : 1985 Admit Date 05/07/2020 08:50 Discharge Date 05/11/2020 Primary Care Provider JAYDON GARY, TRAY PACKER-FAM Discharge Diagnosis No Diagnosis on Record Procedures SN - Proc - Procedure: Cholecystectomy Laparoscopic (05/07/20 14:57:49) Reason for Hospitalization Abdominal pain Hospital Course This is 34 years old female patient past medical history of hypothyroidism, hypertension, hyperlipidemia, migraine headache, obstructive sleep apnea not compliant with CPAP, morbid obesity, patient was transferred from [facility] for acute cholecystitis. Patient presented with right [...] DOCTOR NOTES, Pre-Op Dx: CHOLECYSTITIS, Print Label, [id number], Print Label By Orde... Time Spent on Discharge 33 min documented in this encounter Plan of Treatment Not on file documented as of this encounter Visit Diagnoses Not on filedocumented in this encounter
--- OUTSIDE RECORDS SUMMARY | 2025-01-25 13:19 | XMS_ITS | Encounter Summary ---
Author Organization [employer] ([place], [place], [place], [place], [place]) Address [address] [place] [address] Care Team Providers Care Production Expediter Name Role Phone Unavailable Primary Care Provider Unavailabl e Encounter Details Date Type Department Care Team (Late st Contact Info) Description 05/08/2020 Transcribed Document [facility] [place] Family Medicine [facility] [place] [address] ProviderRuperto MD [address] [place] [address] Social History Tobacco Use Types [...] - Historical ProviderMD - 05/08/2020 12:42 PM SENIOR AUDIT MANAGER Patient: PASCALE BOOTHE Age: 34 Years Sex: [...] Lymph # 1.57 x10(3)/uL 05/08/2020 06:11 EST [place] % 3.6 % 05/08/2020 06:11 EST [place] # 0.53 K/uL 05/08/2020 06:11 EST Eos % 0.0 % 05/08/2020 06:11 EST Eos # 0.00 x10(3)/uL 05/08/2020 06:11 EST Baso % 0.2 % 05/08/2020 06:11 EST Baso # 0.03 x10(3)/uL 05/08/2020 06:11 EST Slide Review No 05/08/2020 06:11 EST IG# 0.12 x10(3)/uL (High) 05/08/2020 06:11 EST IG% 0.80 % (High) 05/08/2020 06:11 EST Electronically signed by [facility], [facility] Conversion Worm Farm Laborer Cerner at 06/20/2022 6:29 PM CDT documented in this encounter Plan of Treatment Not on file documented as of this encounter Visit Diagnoses Not on filedocumented in this encounter
--- OUTSIDE RECORDS SUMMARY | 2025-01-25 13:19 | XMS_ITS | Encounter Summary ---
Author Organization [employer] ([place], [place], [place], [place], [place]) Address [address] [place] [address] Care Team Providers Care Facilities Technician Name Role Phone Unavailable Primary Care Provider Unavailabl e Encounter Details Date Type Department Care Team (Late st Contact Info) Description 05/08/2020 Transcribed Document [facility] [place] Medicine [facility] [place] [address] ProviderRuperto MD [address] [place] [address] Social History Tobacco Use [...] - Ruperto ProviderMD - 05/08/2020 10:56 AM LAW TUTOR Patient: PASCALE BOOTHE Age: 34 years Sex: [...] History of obstructive sleep apnea / IMO [id number] / Confirmed, Active Problems (8) Anxiety Depression [...] bedside Labs, imaging from outside hospital reviewed documented in this encounter Plan of Treatment Not on file documented as of this encounter Visit Diagnoses Not on filedocumented in this encounter
--- OUTSIDE RECORDS SUMMARY | 2025-01-25 13:20 | XMS_ITS | Encounter Summary ---
Author Organization [employer] ([place], [place], [place], [place], [place]) Address [address] [place] [address] Care Team Providers Care Company Manager Name Role Phone Unavailable Primary Care Provider Unavailabl e Encounter Details Date Type Department Care Team (Late st Contact Info) Description 05/12/2020 Transcribed Document [facility] [place] Family Medicine [facility] [place] [address] ProviderRuperto MD [address] [place] [address] Social History Tobacco Use Types [...] - Historical ProviderMD - 05/12/2020 6:38 AM METAL FABRICATING INSPECTOR UM Authorization Entered On: 05/12/2020 6:40 EST Performed On: 05/12/2020 6:38 EST by Willow Connelly, Test Tube Maker Primary Insurance Authorization Authorization and Policy Numbers : Insurance 1 Health Plan: [employer] Policy Number: [id number] Authorization Number: Insurance Primary Name : [employer] Policy Number: [id number] Authorization Status-Primary : No precert required Auth/Referral Contact Name-Primary : [place] Authorization Number-Primary : NPR - COVID Crisis Authorized Service Begin Date-Primary : 05/07/2020 EST Authorization Comments-Primary : Per fax 05/11/20 @ 1131. All authorization s for inpatient medical services have been suspended. Historical Authorization Comments-Primary : Comment 1: Discharge date and summary faxed. (Willow Connelly, Test Tube Maker 05/11/2020 14:15) Comment 2: no updated information on website (Juliana Fontanez, Rn-Utilization Review 05/11/2020 10:07) Comment 3: Faxed facesheet and orders to [employer] for Inpt notification. (DEL HARRISON, Rn-Utilization Review 05/08/2020 16:07) Willow Connelly, Test Tube Maker - 05/12/2020 6:38 EST Electronically signed by Jimmy [facility] Conversion Educational Assistant Cerner at 06/20/2022 6:11 PM CDT documented in this encounter Plan of Treatment Not on file documented as of this encounter Visit Diagnoses Not on filedocumented in this encounter
--- OUTSIDE RECORDS SUMMARY | 2025-01-25 13:20 | XMS_ITS | Encounter Summary ---
Author Organization [email or web address] ([place], [place], [place], [place], [place]) Address [address] [place] [address] Care Team Providers Care Raschel Knitting Machine Operator Name Role Phone Unavailable Primary Care Provider Unavailabl e Encounter Details Date Type Department Care Team (Late st Contact Info) Description 05/11/2020 Transcribed Document [facility] Family Medicine [facility] [place] [address] ProviderRuperto MD [address] [place] [address] Social History Tobacco Use [...] - Historical ProviderMD - 05/11/2020 10:07 AM DISTRICT SUPERVISOR UM Authorization Entered On: 05/11/2020 10:07 EST Performed On: 05/11/2020 10:07 EST by Juliana Fontanez Rn-Utilization Review Primary Insurance Authorization Authorization and Policy Numbers : Insurance 1 Health Plan: [employer] Policy Number: [id number] Authorization Number: Insurance Primary Name : [employer] Policy Number: [id number] Authorization Status-Primary : Awaiting callback Authorized Service Begin Date-Primary : 05/07/2020 EST Authorization Comments-Primary : no updated information on website Historical Authorization Comments-Primary : Comment 1: Faxed facesheet and orders to [employer] for Inpt notification. (DEL HARRISON Rn-Utilization Review 05/08/2020 16:07) Juliana Fontanez Rn-Utilization Review - 05/11/2020 10:07 EST Electronically signed by Jimmy, [facility] Conversion Antique Furniture Repairer Cerner at 06/20/2022 6:28 PM CDT documented in this encounter Plan of Treatment Not on file documented as of this encounter Visit Diagnoses Not on filedocumented in this encounter
--- OUTSIDE RECORDS SUMMARY | 2025-01-25 13:20 | XMS_ITS | Encounter Summary ---
Author Organization [employer] ([place], [place], [place], [place], [place]) Address [address] [place] [address] Care Team Providers Care Pattern Room Attendant Name Role Phone Unavailable Primary Care Provider Unavailabl e Encounter Details Date Type Department Care Team (Late st Contact Info) Description 05/11/2020 Transcribed Document [facility] [place] [facility] [place] [address] ProviderRuperto MD [address] [place] [address] Social History Tobacco Use Types [...] - Historical ProviderMD - 05/11/2020 5:00 AM MUSIC SPECIALIST Chart Check - Review Order Profile Entered On: 05/11/2020 4:16 EST Performed On: 05/11/2020 5:00 EST by Maria Hall RN Chart Check Powerplans Initiated/Discontinued as Appropriate : Yes All Active Orders Reviewed : Yes Maria Hall RN - 05/11/2020 4:16 EST Electronically signed by Jimmy [facility] Conversion Shell Sieve Operator Venkata at 06/20/2022 6:26 PM CDT documented in this encounter Plan of Treatment Not on file documented as of this encounter Visit Diagnoses Not on filedocumented in this encounter
--- OUTSIDE RECORDS SUMMARY | 2025-01-25 13:20 | XMS_ITS | Encounter Summary ---
Author Organization [employer] ([place], [place], [place], [place], [place]) Address [address] [place] [address] Care Team Providers Care Community Health Program Coordinator Name Role Phone Unavailable Primary Care Provider Unavailabl e Encounter Details Date Type Department Care Team (Late st Contact Info) Description 05/07/2020 Transcribed Document [facility] [place] Family Medicine [facility] [place] [address] ProviderRuperto MD [address] [place] [address] Social History Tobacco Use Types [...] - Ruperto ProviderMD - 05/07/2020 1:32 PM BLINDSTITCH LAPEL PADDER [facility] Main OR IntraOp Summary Primary Physician: BLADIMIR YI MD Finalized Date/Time: 05/08/20 12:38:15 Pt. Name: PASCALE BOOTHE /Sex: 1985 Female Med Rec #: [id number] Physician: KEELY GUZMAN DO-INT Financial #: [id number] Pt. Type: I Room/Bed: [facility]/ Admit/Disch: 05/07/20 08:50:00 - Institution: [facility] IntraOp Case Attendance Entry 1 Entry 2 Entry 3 Case Attendee BLADIMIR YI MD TAY, JAMES, MD-ELMA DE LEON Role Performed Surgeon/Proceduralist, Anesthesiologist [facility] Hand, First First Time In 05/07/20 13:17:00 05/07/20 13:17:00 05/07/20 13:17:00 Time Out 05/07/20 14:54:00 05/07/20 14:54:00 05/07/20 14:54:00 Procedure Cholecystectomy Cholecystectomy Cholecystectomy Laparoscopic Laparoscopic Laparoscopic Other Attendee Superficial Wound Closed By: Last Modified By: Fanny Connelly, Fanny Calderon, Fanny Calderon RN 05/07/20 14:57:51 05/07/20 14:57:51 05/07/20 14:57:51 Entry 4 Entry 5 Case Attendee Fanny Connelly, EMILIA MONTOYA Role Performed Sole Stitcher Hand, First Scrub, First Time In 05/07/20 13:17:00 05/07/20 13:17:00 Time Out 05/07/20 14:54:00 05/07/20 14:54:00 Procedure Cholecystectomy Cholecystectomy Laparoscopic Laparoscopic Other Attendee Superficial Wound Closed By: Last Modified By: Fanny Connelly RN Smith, Patsy D, RN 05/07/20 14:57:51 05/07/20 14:57:51 [facility] IntraOp Case Attendance Audit 05/07/20 14:57:51 Molded Frames Assembler: JORGE Modifier: JORGE 1 <+> Time Out 1 <*> Procedure Cholecystectomy Laparoscopic 2 <+> Time In 2 <+> Time Out 2 <*> Procedure Cholecystectomy Laparoscopic 3 <+> Time In 3 <+> Time Out 3 <*> Procedure Cholecystectomy Laparoscopic 4 <+> Time In 4 <+> Time Out 4 <*> Procedure Cholecystectomy Laparoscopic 5 <+> Time In 5 <+> Time Out 5 <*> Procedure Cholecystectomy Laparoscopic [facility] IntraOp Case Times Entry 1 Patient In Room Time 05/07/20 13:17:00 Out Room Time 05/07/20 14:54:00 Anesthesia Start Time 05/07/20 13:17:00 Stop Time 05/07/20 14:54:00 Surgery / Procedure Times Start Time 05/07/20 13:32:00 Stop Time 05/07/20 14:42:00 Last Modified By: Fanny Connelly RN 05/07/20 14:57:23 [facility] IntraOp Case Times Audit 05/07/20 14:57:23 Molded Frames Assembler: JORGE Modifier: [email or web address] <+> 1 Out Room Time <+> 1 Stop Time 05/07/20 14:47:00 Molded Frames Assembler: JORGE Modifier: [email or web address] <+> 1 Stop Time [facility] IntraOp Cautery Entry 1 ESU Identification Cautery Type Monopolar ESU ID Number [id number] ID Type Hospital Number Cautery Settings Cut Setting 1 Coag Setting 30 ESU Grounding Pad Ground Pad Type Adult Grounding Pad Site Right thigh Grounding Pad Fanny Connelly RN Applied By Grounding Pad Site Warm, dry and intact Skin Condition Before Cautery Grounding Pad Site Unchanged, Warm, dry Skin Condition and intact After Cautery Last Modified By: Fanny Connelly RN 05/07/20 14:08:47 [facility] IntraOp Communication Entry 1 Communication To Family/Significant other Comment START - FAMILY PRESENT AT DROP OFF TO OR Communication By Fanny Connelly RN Date and Time 05/07/20 13:17:00 Last Modified By: Fanny Connelly RN 05/07/20 14:09:17 [facility] IntraOp Counts Verification Entry 1 Procedure Cholecystectomy Laparoscopic Count Info Count Type Sponge, Sharps, Instrument, Miscellaneous Counts Verification Baseline/pre-procedure Sequence Count Results Not Applicable Counts Performed By Count Performed By EMILIA HERNANDEZ (Scrub) Count Performed By Fanny Connelly RN (RN) Last Modified By: Fanny Connelly RN 05/07/20 14:09:30 [facility] IntraOp Counts Final Entry 1 Procedure Cholecystectomy Laparoscopic Final Count Info Count Type Sponge, Sharps, Miscellaneous Counts Verification Skin Closure/end of Sequence procedure Count Results Correct, surgeon notified Counts Performed By Count Performed By EMILIA HERNANDEZ (Scrub) Count Performed By Fanny Connelly RN (RN) Last Modified By: Fanny Connelly RN 05/07/20 14:48:14 [facility] IntraOp Cultures and Spec Summary Entry 1 Cultrures and Specimens Specimen Ordered: Yes Test(s) Routine/Path-Lab Requested/Final Disposition Last Modified By: Fanny Connelly RN 05/07/20 14:16:41 General Comments: SPECIMEN: A. GALLBLADDER AND CONTENTS [facility] IntraOp Departure from OR Entry 1 Integumentary Assessment Integumentary WDL with patient Assessment WDL specific variances Patient's Normal NEW SURGICAL SITE Integumentary ABDOMEN Variance(s) Transfer/Handoff Transfer to PACU Phase I Handoff Method Bedside/Face to face, Phone call, Online nursing summary Post-op Transport Stretcher/Gurney Via Patient Transport ELMA MCKEON Accompanied by Last Modified By: Fanny Connelly RN 05/07/20 14:17:23 [facility] IntraOp Dressing and Packing Entry 1 Type Dressing Wound Dressing Item Skin Closure Glue Applied By ELMA MCKEON Other Comments DERMABOND Last Modified By: Fanny Connelly RN 05/07/20 14:36:47 [facility] IntraOp Fire Risk Assessment Entry 1 Fire [...] Modified By: Fanny Connelly RN 05/07/20 14:53:45 [facility] IntraOp Fire Risk Assessment Audit 05/07/20 14:53:45 Molded Frames Assembler: JORGE Modifier: [email or web address] <+> 1 Open O2 Source (Mask or Cannula) 05/07/20 14:48:41 Molded Frames Assembler: JORGE Modifier: SMITHPD <+> 1 Fire Risk Assessment Verified Date/Time [facility] IntraOp General Case Dredge Pipe Operator 1 Case Information OR OR 08 [facility] Case Level 1 Room Verified Yes Wound Class II - Clean-Contaminated Specialty SN General Anesthesia Type General ASA Class 3 Diagnosis Preop Diagnosis CHOLECYSTITIS Postop Same As Preop No Postop Diagnosis SEE DOCTOR POST OPERATIVE NOTE Last Modified By: Fanny Connelly RN 05/07/20 14:49:57 [facility] IntraOp Intraoperative Assessment Entry 1 Handoff Method [...] Modified By: Fanny Connelly RN 05/07/20 14:53:33 [facility] IntraOp Intraoperative Assessment Audit 05/07/20 14:53:33 Molded Frames Assembler: JORGE Modifier: SMITHPD <+> 1 Level of Consciousness (WDL = Alert, Oriented to Person, Place, and Time) <+> 1 Patient is Latex Sensitive <+> 1 Isolation Precautions Noted [facility] IntraOp Intraoperative Equipment Entry 1 Type Equipment Equipment Equipment Abraham Suction System ID Number [id number] Intraop Monitoring Blood Pressure Non-Invasive BP Device Source Blood Pressure Arm, right upper Location Pulse Oximeter Hand, left Probe Site Antiembolic Devices Antiembolic Devices Sequential compression device, knee high Antiembolic Device Bilateral Location Antiembolic Device [id number] ID Number Antiembolic Device SCD'S ON AND WORKING Setting PRIOR TO IINDUCTION Scopes Photo/Video Documentation Photo No Video No Last Modified By: Fanny Connelly RN 05/07/20 14:54:16 [facility] IntraOp Medication Admin Entry 1 Entry 2 Medication/Irrigant RON IRR NACL 0.9PCT Marcaine 0.5% w/ 1.5L POUR --[id number] epinephrine 1:200,000 30ml vial - [id number] Combo Med List Time Administered Route of IRRIGATION LOCAL Administration Dose Dose 20 Unit of Measure ml Volume Administered By BLADIMIR YI MD TOTTEN, MICHAEL, MD Procedure Irrigation Irrigant Volume In 400 Irrigant Volume Out 400 Last Modified By: Fanny Connelly RN Smith, Patsy D, RN 05/07/20 14:54:49 05/07/20 14:54:49 General Comments: ZOSYN 4.5 G IV ADMIN 1336 PER ANESTHESIA PROVIDER RECORD [facility] IntraOp Patient Positioning Entry 1 Procedure Cholecystectomy [...] Elbow, Pad, Heel Positioned By Fanny Connelly, DOMENICO, BLADIMIR YI MD, ELMA MCKEON, ARMANDO GRAY MD-ANS Position Verified Positioning Yes Verified by Anesthesia Positioning Yes Verified by Surgeon Last Modified By: Fanny Connelly RN 05/07/20 14:56:58 [facility] IntraOp Patient Positioning Audit 05/07/20 14:56:58 Molded Frames Assembler: YULIYA Modifier: JORGE 1 <*> Procedure Cholecystectomy Laparoscopic 1 <*> Positioning Devices Arm Board, Head Rest, Pad, Arm, Foot Board 1 <*> Positioned By Fanny Connelly RN [facility] IntraOp Sign In Entry 1 Patient, Site, [...] Modified By: Fanny Connelly RN 05/07/20 14:55:30 [facility] IntraOp Sign Out Entry 1 RN Confirmation [...] Modified By: Fanny Connelly RN 05/07/20 14:57:27 [facility] IntraOp Sign Out Audit 05/07/20 14:57:27 Molded Frames Assembler: YULIYA Modifier: SMITHPD <+> 1 RN Sign Out Signature Date/Time [facility] IntraOp Skin Prep Entry 1 Procedure Cholecystectomy Laparoscopic Prescribed Yes Pre-Surgical Prep Completed Prep Area ABDOMEN Intraop Prep Prep Agents Chloraprep Prep by Fanny Connelly, RN Hair Removal Methods No hair removal performed Last Modified By: Fanny Connelly RN 05/07/20 14:57:42 [facility] IntraOp Surgical Procedures Entry 1 Procedure Cholecystectomy Laparoscopic Primary Procedure Yes Primary Surgeon BLADIMIR YI MD Start 05/07/20 13:32:00 Stop 05/07/20 14:42:00 Anesthesia Type General Specialty SN General Wound Class II - Clean-Contaminated Last Modified By: Fanny Connelly RN 05/07/20 14:57:49 [facility] IntraOp Surgical Procedures Audit 05/07/20 14:57:49 Molded Frames Assembler: JORGE Modifier: SMITHPD 1 <*> Procedure Cholecystectomy Laparoscopic 05/07/20 14:57:43 Molded Frames Assembler: JORGE Modifier: SMITHPD <+> 1 Stop [facility] IntraOp Temp Regulation Devices Entry 1 Temp Regulation Temperature Warm blankets, Room Regulation Device temperature Temperature Lower body Regulation Site Temperature Fanny Connelly RN Regulation Device Applied by Temperature TEMPERATURE REGULATION Regulation Comment MONITORED AND CONTROLLED BY ANESTHESIA PROVIDER. RICO HUGGER AVAILABLE FOR USE. WARM BLANKETS APPLIED. Last Modified By: Fanny Connelly RN 05/07/20 14:41:41 [facility] IntraOP Time Out Entry 1 Procedure to [...] Correct Billing 05/08/20 12:36 [id number] Correct Billing Electronically signed by Jimmy, [facility] Conversion Occupational Health And Safety Adviser Cerner at 06/20/2022 6:25 PM CDT documented in this encounter Plan of Treatment Not on file documented as of this encounter Visit Diagnoses Not on filedocumented in this encounter
--- OUTSIDE RECORDS SUMMARY | 2025-01-25 13:20 | XMS_ITS | Encounter Summary ---
Author Organization [employer] ([place], [place], [place], [place], [place]) Address [address] [place] [address] Care Team Providers Care Marble Rubber Name Role Phone Unavailable Primary Care Provider Unavailabl e Encounter Details Date Type Department Care Team (Late st Contact Info) Description 05/11/2020 Transcribed Document [facility] [place] Family Medicine [facility] [place] [address] ProviderRuperto MD [address] [place] [address] Social History Tobacco Use Types [...] - Historical ProviderMD - 05/11/2020 11:[address] Nursing Discharge Summary Entered On: 05/11/2020 11:44 EST Performed On: 05/11/2020 11:44 EST by Robyn Fisher RN Discharge Documentation Discharge Date/Time : 05/11/2020 11:44 EST [...] - 05/11/2020 11:44 EST Electronically signed by [facility] Conversion Account Receivable Associate Cerner at 06/20/2022 6:29 PM CDT documented in this encounter Plan of Treatment Not on file documented as of this encounter Visit Diagnoses Not on filedocumented in this encounter
--- OUTSIDE RECORDS SUMMARY | 2025-01-25 13:20 | XMS_ITS | Encounter Summary ---
Author Organization [employer] ([place], [place], [place], [place], [place]) Address [address] [facility] [place] [address] Care Team Providers Care Special Education Associate Name Role Phone Unavailable Primary Care Provider Unavailabl e Encounter Details Date Type Department Care Team (Late st Contact Info) Description 05/07/2020 Transcribed Document [facility] [place] [facility] [address] ProviderRuperto MD [address] [place] [address] Social History Tobacco Use Types [...] Conversion Note - Historical ProviderMD - 05/07/2020 8:28 AM MACHINERY REPAIR MAINTENANCE SUPERVISOR Admission History, Adult Entered On: 05/07/2020 9:37 [...] killian Emergency Contact #1 Phone Number : [phone] Emergency Contact #1 Relationship : mother Emergency Contact #2 : na Emergency Contact #2 Phone Number : na Emergency Contact #2 Relationship : na Information Obtained From : Patient Primary Language : Yoruba Communication Barrier : None Charge Preparation Technician Needed : No Levar Luna RN - [...] Scale Risk Level : 0-24 Low Risk [place] Fall Interventions : Adequate lighting, Assistive devices [...] Source : Stated Height Entry Format : [place] Height, Feet : 5 ft(Converted to: 152 cm, 60 Inch) Height, Inches : 6 Inch(Converted to: 0 ft 6 Inch, 15.24 cm) Clinical Height : 167.64 cm Weight Source : Standing scale Weight Entry Format : Mohave Clinical Dosing Weight : 159.09 kg Weight, Pounds : 350 lb Body Surface Area (BSA) : 2.54 m2 Body Mass Index : 56.6 kg/m2 (>HHI) [place] Body Weight : 59 kg Levar Luna [...] Levar Luna RN - 05/07/2020 9:28 EST [place] Suicide Severity Rating Scale (C-SSRS) CSSRS Past [...] 05/07/2020 9:28 EST Electronically signed by Jimmy [facility] Conversion Coordinator Integrated Marketing Cerner at 06/20/2022 6:22 PM CDT documented in this encounter Plan of Treatment Not on file documented as of this encounter Visit Diagnoses Not on filedocumented in this encounter
--- OUTSIDE RECORDS SUMMARY | 2025-01-25 13:20 | XMS_ITS | Encounter Summary ---
Author Organization [employer] ([place], [place], [place], [place], [place]) Address [address] [place] [address] Care Team Providers Care Salvage Inspector Wood Parts Name Role Phone Unavailable Primary Care Provider Unavailabl e Encounter Details Date Type Department Care Team (Late st Contact Info) Description 05/07/2020 Transcribed Document [facility] [place] Family Medicine [facility] [place] [address] ProviderRuperto MD [address] [place] [address] Social History Tobacco Use Types [...] - Ruperto ProviderMD - 05/07/2020 9:16 AM YARN WORKER Patient: PASCALE BOOTHE Age: 34 Years Sex: Female : 1985 Chief Complaint Abdominal pain, nausea and vomiting Primary Care Provider JAYDON GARY, PARTY PLAN SALESPERSON-[facility] History of Present Illness This is 34 years old female patient past medical history of hypothyroidism, hypertension, hyperlipidemia, migraine headache, obstructive sleep apnea not compliant with CPAP, morbid obesity, patient was transferred from [facility] for acute cholecystitis. Patient presented with right [...]
--- OUTSIDE RECORDS SUMMARY | 2025-01-25 13:20 | XMS_ITS | Encounter Summary ---
Author Organization [employer] ([place], [place], [place], [place], [place]) Address [address] [place] [address] Care Team Providers Care Turn Operator Name Role Phone Unavailable Primary Care Provider Unavailabl e Encounter Details Date Type Department Care Team (Late st Contact Info) Description 05/07/2020 Transcribed Document [facility] [place] Family Medicine [facility] [place] [address] ProviderRuperto MD [address] [place] [address] Social History Tobacco Use Types [...] - Historical ProviderMD - 05/07/2020 11:03 AM TRANSFER AND LINE UP WORKER Patient: PASCALE DICKSON Age: 34 Years Sex: [...] Information Primary Care Physician - JAYDON GARY, SUPPORT COORDINATOR-FAM Attending Physician - KEELY GUZMAN, DO-INT Admitting Physician - KEELY GUZMAN, DO-INT Consulting Physician - BLADIMIR YI MD [...] Lymph # 1.43 x10(3)/uL 05/07/2020 09:59 EST Gallia % 3.5 % 05/07/2020 09:59 EST Gallia # 0.41 K/uL 05/07/2020 09:59 EST Eos [...] signed by Interface, [facility] Conversion Ammonia Refrigeration Worker Cerner at 06/20/2022 6:34 PM CDT documented in this encounter Plan of Treatment Not on file documented as of this encounter Visit Diagnoses Not on filedocumented in this encounter
--- OUTSIDE RECORDS SUMMARY | 2025-01-25 13:20 | XMS_ITS | Encounter Summary ---
Author Organization [employer] ([place], [place], [place], [place], [place]) Address [address] [place] [address] Care Team Providers Care Rig Manager Name Role Phone Unavailable Primary Care Provider Unavailabl e Encounter Details Date Type Department Care Team (Late st Contact Info) Description 05/11/2020 Transcribed Document [facility] [place] Family Medicine [facility] [place] [address] ProviderRuperto MD [address] [place] [address] Social History Tobacco Use Types [...] - Historical ProviderMD - 05/11/2020 2:00 AM LANGUAGE AND LITERATURE DIVISION CHAIR Metal Patternmaker Apprentice Details Entered On: 05/11/2020 4:15 EST Performed [...]
--- OUTSIDE RECORDS SUMMARY | 2025-01-25 13:20 | XMS_ITS | Encounter Summary ---
Author Organization [employer] ([place], [place], [place], [place], [place]) Address [address] [place] [address] Care Team Providers Care Bellstand Attendant Name Role Phone Unavailable Primary Care Provider Unavailabl e Encounter Details Date Type Department Care Team (Late st Contact Info) Description 05/07/2020 Transcribed Document [facility] [place] [address] ProviderRuperto MD [address] [place] [address] Social History Tobacco Use Types [...] - Ruperto ProviderMD - 05/07/2020 1:32 PM DISABILITY ADVOCATE [facility] Main OR PACU Summary Primary Physician: BLADIMIR YI MD Finalized Date/Time: 05/07/20 16:46:02 Pt. Name: PASCALE BOOTHE /Sex: 1985 Female Med Rec #: [id number] Physician: KEELY GUZMAN, DO-INT Financial #: [id number] Pt. Type: I Room/Bed: [facility]/ Admit/Disch: 05/07/20 08:50:00 - Institution: [facility] Main OR PACU I Case Times Entry 1 In PACU I 05/07/20 14:51:00 Ready for PACU 05/07/20 16:30:00 Discharge Discharge from PACU 05/07/20 16:30:00 I Last Modified By: TREY NIEVES RN 05/07/20 16:37:16 [facility] Main OR PACU I Case Times Audit 05/07/20 16:37:16 Supervisor Bottle House Cleaners: GUSTAVO Modifier: BRANDEP <+> 1 Ready for PACU Discharge <+> 1 Discharge from PACU I Finalized By: TREY NIEVES, RN Document Signatures Signed By: TREY NIEVES RN 05/07/20 16:46 Electronically signed by Jimmy [facility] Conversion Hot Blast Worker Cerner at 06/20/2022 6:14 PM CDT documented in this encounter Plan of Treatment Not on file documented as of this encounter Visit Diagnoses Not on filedocumented in this encounter
--- OUTSIDE RECORDS SUMMARY | 2025-01-25 13:20 | XMS_ITS | Encounter Summary ---
Author Organization [employer] ([place], [place], [place], [place], [place]) Address [address] [place] [address] Care Team Providers Care Crozer Operator Name Role Phone Unavailable Primary Care Provider Unavailabl e Encounter Details Date Type Department Care Team (Late st Contact Info) Description 05/11/2020 Transcribed Document [facility] [place] [facility] [place] [address] ProviderRuperto MD [address] [place] [address] Social History Tobacco Use Types [...] - Historical ProviderMD - 05/11/2020 12:59 PM FILLER SHREDDER MACHINE Patient: PASCALE BOOTHE Age: 34 Years Sex: [...] No 05/11/2020 07:12 EST Electronically signed by [facility], [facility] Conversion Aeronautical Research Engineer Cerner at 06/20/2022 6:20 PM CDT documented in this encounter Plan of Treatment Not on file documented as of this encounter Visit Diagnoses Not on filedocumented in this encounter
--- OUTSIDE RECORDS SUMMARY | 2025-01-25 13:20 | XMS_ITS | Referral Summary ---
Author Organization [employer] ([place], [place], [place], [place], [place]) Address [address] [place] [address] Care Team Providers Care Self Propelled Dredge Operator Name Role Phone Unavailable Primary Care [...]
--- OUTSIDE RECORDS SUMMARY | 2025-01-25 13:20 | XMS_ITS | Encounter Summary ---
Author Organization [employer] ([place], [place], [place], [place], [place]) Address [address] [place] [address] Care Team Providers Care General Car Supervisor Yard Name Role Phone Unavailable Primary Care Provider Unavailabl e Encounter Details Date Type Department Care Team (Late st Contact Info) Description 05/11/2020 Transcribed Document [facility] [place] [facility] [place] [address] ProviderRuperto MD [address] [place] [address] Social History Tobacco Use Types [...] - Ruperto ProviderMD - 05/11/2020 10:21 AM SASH FINISHER [facility] [place] [address] PASCALE BOOTHE :1985 Visit Time:05/07/2020 Your Visit Summary Your Care Team Admitting Physician - KEELY GUZAMN, DO-INT Attending Physician - GINO SOLORIO MD Primary Care Physician - JAYDON GARY, TRAFFIC WORKER-FAM Referring Physician - PAULA DELGADO (REF)MD-INT Your [...] Card, Photo ID, Ins Co-pay Where: [address] [facility] [address] [address]- Follow Up with JAYDON GARY APRN-FAM When 05/16/2020 02:15 PM EDT Comments Appointment has been made Bring discharge instructions with you Bring Ins Card, Photo ID, Ins Co-pay Where: [address] [place] [address]- [phone] Medications What How Much When Instructions Next Dose docusate (Colace 100 mg oral capsule) 1 Capsule(s) Oral Every Day Pickup at [facility] 05/12/2020 AM oxyCODONE (Roxicodone 5 mg oral tablet) 1 Tablet(s) Oral Every 4 Hours as needed for Pain (Moderate 4-6) Pickup at [facility] as needed PRAVAstatin (pravastatin 20 mg [...] AM Pharmacy Information [facility] [address] [place], [place] [id number] [phone] Take your medications faithfully. Do NOT skip [...] and water are not available, use hand cloth mercerizing supervisor. ? Change your dressing as told by [...] care provider approves. General instructions ??? Take fejc-tsl-cuymbna and prescription medicines only as told by your health care provider. ??? To prevent or treat constipation while you are taking prescription pain medicine, your health care provider may recommend that you: ? Drink enough fluid to keep your urine clear or pale yellow. ? Take wrqq-osc-fpnjepm or prescription medicines. ? Eat foods that [...] 02/18/2006 Document Revised: 01/31/2018 Document Reviewed: 08/06/2016 [employer] Patient Education ?? 2020 Bare Snacks. Cholecystitis Cholecystitis is inflammation of the gallbladder. [...] care after the procedure. Medicines ??? Take qqtn-huf-cflfuwy and prescription medicines only as told by [...] 02/18/2006 Document Revised: 06/27/2018 Document Reviewed: 06/27/2018 [employer] Patient Education ?? 2020 Bare Snacks. docusate (oral/rectal) (DOK ryane gracee) Colace, Diocto, Doc-Q-Lace, Docu, Doculase, Docusil, Docusoft [...] may report side effects to FDA at 4-136-ITD-7147. What other drugs will affect docusate? Other drugs may affect docusate, including prescription and tbbn-mhb-njlzbvo medicines, vitamins, and herbal products. Tell your [...] to ensure that the information provided by [employer]. ('[employer]') is accurate, up-to-date, and complete, but no guarantee is made to that effect. Drug information contained herein may be time sensitive. [employer] information has been compiled for use by healthcare practitioners and consumers in the [place] and therefore [employer] does not warrant that uses outside of the [place] are appropriate, unless specifically indicated otherwise. [employer] drug information does not endorse drugs, diagnose patients or recommend therapy. [employer] drug information is an informational resource designed [...] effective or appropriate for any given patient. [employer] does not assume any responsibility for any aspect of healthcare administered with the aid of information [employer] provides. The information contained herein is not intended to cover all possible uses, directions, precautions, warnings, drug interactions, allergic reactions, or adverse effects. If you have questions about the drugs you are taking, check with your doctor, nurse or pharmacist. Copyright 6264-6804 [employer]. Version: 4.01. Revision Date: 09/08/2018. oxycodone (ox [...] The extended-release form of oxycodone is for kprjtc-uwj-bqnpy treatment of pain and should not be [...] against the law. Stop taking all other mkkejp-krz-awumb opioid pain medicines when you start taking [...] may report side effects to FDA at 7-968-ARA-1820. What other drugs will affect oxycodone? You [...] may affect oxycodone. This includes prescription and lowt-yzl-xamqbwd medicines, vitamins, and herbal products. Not all [...] to ensure that the information provided by [employer] ('[employer]') is accurate, up-to-date, and complete, but no guarantee is made to that effect. Drug information contained herein may be time sensitive. [employer] information has been compiled for use by healthcare practitioners and consumers in the [place] and therefore [employer] does not warrant that uses outside of the [place] are appropriate, unless specifically indicated otherwise. [employer]'s drug information does not endorse drugs, diagnose patients or recommend therapy. [employer] drug information is an informational resource designed [...] effective or appropriate for any given patient. [employer] does not assume any responsibility for any aspect of healthcare administered with the aid of information [employer] provides. The information contained herein is not intended to cover all possible uses, directions, precautions, warnings, drug interactions, allergic reactions, or adverse effects. If you have questions about the drugs you are taking, check with your doctor, nurse or pharmacist. Copyright 7913-4030 [employer]. Version: 14.02. Revision Date: 03/31/2020. Emergency Awareness [...] Assistance with quitting is available by contacting 3-481-NDGD-NOW. This is a free resource providing counseling, [...] range between ( 0.0 and 7.0 ) Haakon #: 0.53 K/uL -- Normal range between ( 0.16 and 1.00 ) Eos #: 0.00 x10(3)/uL -- Normal range between ( 0.00 and 0.80 ) Haakon %: 3.6 % -- Normal range between [...] was given the opportunity to ask questions. Patient/Rn Production Name: Patient/Rn Production Signature: Relationship to Patient: Clinician/Hospital Rn Production Signature: Date: documented in this encounter Plan of Treatment Not on file documented as of this encounter Visit Diagnoses Not on filedocumented in this encounter
--- OUTSIDE RECORDS SUMMARY | 2025-01-25 13:20 | XMS_ITS | Encounter Summary ---
Author Organization [employer] ([place], [place], [place], [place], [place]) Address [address] [place] [address] Care Team Providers Care Chief Fundraising Officer Name Role Phone Unavailable Primary Care Provider Unavailabl e Encounter Details Date Type Department Care Team (Late st Contact Info) Description 05/07/2020 Transcribed Document [facility] [place] [address] ProviderRuperto MD [address] [place] [address] Social History Tobacco Use Types [...] Conversion Note - Ruperto ProviderMD - 05/07/2020 9:02 AM REGULATORY COMPLIANCE OFFICER Pain Assessment Entered On: 05/08/2020 14:27 EST [...]
--- OUTSIDE RECORDS SUMMARY | 2025-01-25 13:20 | XMS_ITS | Encounter Summary ---
Author Organization [employer] ([place], [place], [place], [place], [place]) Address [address] [place] [address] Care Team Providers Care Furnishings Conservator Name Role Phone Unavailable Primary Care Provider Unavailabl e Encounter Details Date Type Department Care Team (Late st Contact Info) Description 05/11/2020 Transcribed Document [facility] [place] [facility] [address] ProviderRuperto MD [address] [place] [address] Social History Tobacco Use Types [...] - Historical ProviderMD - 05/11/2020 9:18 AM CLINICAL COORDINATOR Stroke/Warfarin Instructions Entered On: 05/11/2020 9:18 EST [...] De Oliveira RN - 05/11/2020 9:18 EST documented in this encounter Plan of Treatment Not on file documented as of this encounter Visit Diagnoses Not on filedocumented in this encounter
--- OUTSIDE RECORDS SUMMARY | 2025-01-25 13:20 | XMS_ITS | Encounter Summary ---
Author Organization [employer] ([place], [place], [place], [place], [place]) Address [address] [facility] [place] [address] Care Team Providers Care Order Checker Packer Processer Name Role Phone Unavailable Primary Care Provider Unavailabl e Encounter Details Date Type Department Care Team (Late st Contact Info) Description 05/07/2020 Transcribed Document [facility] [place] Medicine [facility] [place] [address] ProviderRuperto MD [address] [place] [address] Social History Tobacco Use Types [...] - Historical ProviderMD - 05/07/2020 9:00 AM CLIMATOLOGY TEACHER Consult Phone Call Documentation Entered On: 05/08/2020 [...]
--- OUTSIDE RECORDS SUMMARY | 2025-01-25 13:20 | XMS_ITS | Encounter Summary ---
Author Organization [employer] ([place], [place], [place], [place], [place]) Address [address] [place] [address] Care Team Providers Care Solution Director Name Role Phone Unavailable Primary Care Provider Unavailabl e Encounter Details Date Type Department Care Team (Late st Contact Info) Description 05/10/2020 Transcribed Document [facility] [place] Family Medicine [facility] [place] [address] ProviderRuperto MD [address] [place] [address] Social History Tobacco Use Types [...] - Historical ProviderMD - 05/10/2020 2:10 PM PHARMACY ASSISTANT Patient: PASCALE BOOTHE Age: 34 years Sex: [...] History of obstructive sleep apnea / IMO [id number] / Confirmed, Active Problems (8) Anxiety Depression History of obstructive sleep apnea Hyperlipidemia Hypertension Hypothyroidism, unspecified Migraines Sleep apnea Objective VS/Measurements Vitals Signs (last 24 hrs) Last Charted Minimum Maximum Temp 98.1 (MAY 10 10:30) 97.7 (MAY 10 03:00) 98 (MAY 09:00) Apical HR 78 (MAY 10 08:48) 78 (MAY 10 08:48) 78 (MAY 10 08:48) Mon HR 56 (MAY 10 10:30) 50 (MAY 09:00) 64 (MAY 09:19) Resp Rate 18 (MAY 10 10:30) 14 (MAY 10 06:01) 18 (MAY 09 15:00) SBP 108 (MAY 10 10:30) 95 (MAY 10 03:00) 137 (MAY 09 15:00) DBP 60 (MAY 10 10:30) L 57 (MAY 10 03:00) 81 (MAY 09 15:00) MAP 73 (MAY 10 10:30) 69 (MAY 10 03:00) 102 (MAY 09 15:00) SpO2 94 (MAY 10:30) L 93 (MAY 09:19) 97 (MAY [...] (MAY 09) 98 (MAY 08) H 115 (MAR 07) H 107 (MAY 07) Ca 8.4 (MAY 10) 9.0 (MAY 09) [...]
--- OUTSIDE RECORDS SUMMARY | 2025-01-25 13:20 | XMS_ITS | Encounter Summary ---
Author Organization [employer] ([place], [place], [place], [place], [place]) Address [address] [facility] [place] [address] Care Team Providers Care Roll Over Press Operator Name Role Phone Unavailable Primary Care Provider Unavailabl e Encounter Details Date Type Department Care Team (Late st Contact Info) Description 05/11/2020 Transcribed Document [facility] [place] Family Medicine [facility] [place] [address] ProviderRuperto MD [address] [place] [address] Social History Tobacco Use Types [...] Ruperto Greene MD - 05/11/2020 8:57 AM BOW MAKER PRODUCTION Patient Education Materials Follows: Laparoscopic Cholecystectomy, Care [...] and water are not available, use hand umbrella mender. ? Change your dressing as told by [...] care provider approves. General instructions ??? Take ffjv-ryb-vgjzgfm and prescription medicines only as told by your health care provider. ??? To prevent or treat constipation while you are taking prescription pain medicine, your health care provider may recommend that you: ? Drink enough fluid to keep your urine clear or pale yellow. ? Take uozq-kzg-qiltdyx or prescription medicines. ? Eat foods that [...] 02/18/2006 Document Revised: 01/31/2018 Document Reviewed: 08/06/2016 [employer] Patient Education ? 2020 Playroll. Gastroenterology Cholecystitis Cholecystitis is inflammation of the [...] care after the procedure. Medicines ??? Take szcs-nwm-jyqjpye and prescription medicines only as told by [...] 02/18/2006 Document Revised: 06/27/2018 Document Reviewed: 06/27/2018 [employer] Patient Education ? 2020 Playroll. documented in this encounter Plan of Treatment Not on file documented as of this encounter Visit Diagnoses Not on filedocumented in this encounter
--- OUTSIDE RECORDS SUMMARY | 2025-01-25 13:20 | XMS_ITS | Encounter Summary ---
Author Organization [employer] ([place], [place], [place], [place], [place]) Address [address] [place] [address] Care Team Providers Care Square Cutter Name Role Phone Unavailable Primary Care Provider Unavailabl e Encounter Details Date Type Department Care Team (Late st Contact Info) Description 05/07/2020 Transcribed Document [facility] [place] [facility] [place] [address] ProviderRuperto MD [address] [place] [address] Social History Tobacco Use Types [...] - Ruperto ProviderMD - 05/07/2020 9:02 AM FIELD LOGISTICS COORDINATOR Pain Assessment Entered On: 05/08/2020 6:49 EST Performed On: 05/08/2020 6:57 EST by Laina Greer RN Intervention Information: HYDROmorphone Performed by Laian Greer RN on 05/08/2020 06:27:00 EST HYDROmorphone,0.5mg [...] of the form. Electronically signed by Jimmy, [facility] Conversion Car Servicer Cerner at 06/24/2022 4:14 PM CDT documented in this encounter Plan of Treatment Not on file documented as of this encounter Visit Diagnoses Not on filedocumented in this encounter
--- OUTSIDE RECORDS SUMMARY | 2025-01-25 13:20 | XMS_ITS | Encounter Summary ---
Author Organization [employer] ([place], [place], [place], [place], [place]) Address [address] [place] [address] Care Team Providers Care Electronic Instrument Trades Worker Name Role Phone Unavailable Primary Care Provider Unavailabl e Encounter Details Date Type Department Care Team (Late st Contact Info) Description 05/10/2020 Transcribed Document [facility] [place] [facility] [place] [address] ProviderRuperto MD [address] [place] [address] Social History Tobacco Use Types [...] - Historical ProviderMD - 05/10/2020 12:30 PM EMS DRIVER Patient: PASCALE BOOTHE Age: 34 Years Sex: [...] No 05/10/2020 06:46 EST Electronically signed by Jimmy, [facility] Conversion Bar Back Cerner at 06/20/2022 6:35 PM CDT documented in this encounter Plan of Treatment Not on file documented as of this encounter Visit Diagnoses Not on filedocumented in this encounter
--- OUTSIDE RECORDS SUMMARY | 2025-01-25 13:21 | XMS_ITS | Encounter Summary ---
Author Organization [employer] ([place], [place], [place], [place], [place]) Address [address] [place] [address] Care Team Providers Care Golf Course Keeper Name Role Phone Unavailable Primary Care Provider Unavailabl e Encounter Details Date Type Department Care Team (Late st Contact Info) Description 05/11/2020 Transcribed Document [facility] [place] Family Medicine Pending sale to [facility] [place] [address] ProviderRuperto MD [address] [place] [address] Social History Tobacco Use Types [...] - Historical ProviderMD - 05/11/2020 10:03 AM GOLF CLUB MAKER UM Authorization Entered On: 05/11/2020 10:03 EST Performed On: 05/11/2020 10:03 EST by Juliana Fontanez Rn-Utilization Review Primary Insurance Authorization Authorization and Policy Numbers : Insurance 1 Health Plan: [employer] Policy Number: [id number] Authorization Number: Insurance Primary Name : [employer] Policy Number: [id number] Authorization Status-Primary : Awaiting callback Authorized Service Begin Date-Primary : 05/07/2020 EST Historical Authorization Comments-Primary : Comment 1: Faxed facesheet and orders to [employer] for Inpt notification. (DEL HARRISON Rn-Utilization Review 05/08/2020 16:07) Juliana Fontanez Rn-Utilization Review - 05/11/2020 10:03 EST documented in this encounter Plan of Treatment Not on file documented as of this encounter Visit Diagnoses Not on filedocumented in this encounter
--- OUTSIDE RECORDS SUMMARY | 2025-01-25 13:21 | XMS_ITS | Encounter Summary ---
Author Organization [employer] ([place], [place], [place], [place], [place]) Address [address] [place] [address] Care Team Providers Care English Professor Name Role Phone Unavailable Primary Care Provider Unavailabl e Encounter Details Date Type Department Care Team (Late st Contact Info) Description 05/10/2020 Transcribed Document [facility] [place] [facility] [place] [address] ProviderRuperto MD [address] [place] [address] Social History Tobacco Use Types [...] - Historical ProviderMD - 05/10/2020 5:00 PM TRAINING CONSULTANT Chart Check - Review Order Profile Entered On: 05/10/2020 18:21 EST Performed On: 05/10/2020 17:00 EST by Levar Luna RN Chart Check All Active Orders Reviewed : Yes Levar Luna RN - 05/10/2020 18:21 EST Electronically signed by Jimmy [facility] Conversion Supervisor Chassis Assembly Cerner at 06/20/2022 6:24 PM CDT documented in this encounter Plan of Treatment Not on file documented as of this encounter Visit Diagnoses Not on filedocumented in this encounter
--- OUTSIDE RECORDS SUMMARY | 2025-01-25 13:21 | XMS_ITS | Encounter Summary ---
Author Organization [employer] ([place], [place], [place], [place], [place]) Address [address] [facility] [place] [address] Care Team Providers Care Gun Synchronizer Name Role Phone Unavailable Primary Care Provider Unavailabl e Encounter Details Date Type Department Care Team (Late st Contact Info) Description 05/10/2020 Transcribed Document [facility] [place] Medicine [facility] [place] [address] ProviderRuperto MD [address] [place] [address] Social History Tobacco Use Types [...] - Historical ProviderMD - 05/10/2020 4:13 PM ENGINE BUILDUP MECHANIC On Going Discharge Planning Entered On: 05/10/2020 16:15 EST Performed On: 05/10/2020 16:13 EST by ONUR PERALTA RN-Monorail Car OperatorAuto Hauler Progress Note Discharge Arrangements : Patient Post-Acute Information Patient Name: PASCALE BOOTHE Gender: Female : [birth year] Age: 34 Years No Post-Acute Placement(s) Listed No Post-Acute Service(s) Listed No Curaspan Referral(s) Listed Discharge Options Discussed with Patient : Discharge transportation, Home Health Is the Patient Meeting Medical Necessity : Yes ONUR PERALTA, RN-Monorail Car Operator - 05/10/2020 16:13 EST Narrative Progress Note Narrative Progress Note : rrs low 3 days elos 4 days cm spoke to patient. Patient possible discharge tomorrow if tolerate diet . no needs identified at this time DCP: home ONUR PERALTA RN-Monorail Car Operator - 05/10/2020 16:13 EST Electronically signed by Jimmy, [facility] Conversion Pharmacy Clinical Coordinator Cerner at 06/20/2022 6:24 PM CDT documented in this encounter Plan of Treatment Not on file documented as of this encounter Visit Diagnoses Not on filedocumented in this encounter
--- OUTSIDE RECORDS SUMMARY | 2025-01-25 13:21 | XMS_ITS | Encounter Summary ---
Author Organization [employer] ([place], [place], [place], [place], [place]) Address [address] [place] [place] [address] Care Team Providers Care Director Radio News Name Role Phone Unavailable Primary Care Provider Unavailabl e Encounter Details Date Type Department Care Team (Late st Contact Info) Description 05/10/2020 Transcribed Document [facility] [place] [address] ProviderRuperto MD [address] [place] [address] Social History Tobacco Use Types [...] - Historical ProviderMD - 05/10/2020 5:00 AM RIVET THROWER Chart Check - Review Order Profile Entered On: 05/10/2020 4:16 EST Performed On: 05/10/2020 5:00 EST by Abeba Henderson, RN Chart Check Powerplans Initiated/Discontinued as Appropriate : Yes All Active Orders Reviewed : Yes Abeba Henderson RN - 05/10/2020 4:16 EST Electronically signed by Jimmy [facility] Conversion Senior Manager Cerdoris at 06/20/2022 6:13 PM CDT documented in this encounter Plan of Treatment Not on file documented as of this encounter Visit Diagnoses Not on filedocumented in this encounter
--- OUTSIDE RECORDS SUMMARY | 2025-01-25 13:21 | XMS_ITS | Encounter Summary ---
Author Organization Healthcare Address [address] [place] [address] Care Team Providers Care Steamboat Pilot Name Role Phone HernándezThomaskristan Koenig APRN Primary Care Provider +1- [phone] Sourav Ambrocio MD Primary Care Provider Mariana vailable Encounter Details Date Type Department Care Team (Late st Contact Info) Description 12/03/2024 Results Follow-Up [facility] Endocrinology [address] [place] [id number] Billy Montiel MD [address] [place] [address] Social History Tobacco Use Types Packs/Day Years Used Date Smoking Tobacco: Never Passive Smoke Exposure: Never Smokeless Tobacco: Never Alcohol Use Standard [...] 12/02/2025 11:00 AM EDT Office Visit Janes Osorio [facility] Endocrinology [address] [place] [phone] Elizabeth Fontanez, SUPERVISOR SCENIC ARTS [address] [place] [phone] documented as of this encounter Visit Diagnoses Not on filedocumented in this encounter Additional Health Concerns Assessment Noted Time PHQ-9 Depression Total Score: 0 05/15/19 25 1:57 PM EDT A Body Mass Index follow-up plan has been documented for the patient 12/03/2024 10:31 AM EDT documented as of this encounter Care Teams Steamboat Pilot Relationship Specialty Start Date End Date Dorothy Hernández, SUPERVISOR SC[employer]IC ARTS [address] [place] [address] PCP - General 04/04/21 12/06/24 Sourav Ambrocio MD PCP - General Family Medicine 12/07/24 documented as of this encounter
--- OUTSIDE RECORDS SUMMARY | 2025-01-25 13:21 | XMS_ITS | Encounter Summary ---
Author Organization Healthcare Address [address] [place] [address] Care Team Providers Care Hydraulic Plumber Name Role Phone Edgar Dorothy Koenig TEAM FOREMAN Primary Care Provider +1- [phone] Encounter Details Date Type Department Care Team (Latest Contact Info) Description 12/02/2024 Travel Social History Tobacco Use Types Packs/Day [...] Visit Janes Sifuentes Endocrinology [address] [place] [phone] Elizabeth Fontanez, TEAM FOREMAN [address] [place] [address] documented as of this encounter Visit Diagnoses Not on filedocumented in this encounter Additional Health Concerns Assessment Noted Time PHQ-9 Depression Total Score: 0 05/15/19 25 1:57 PM EDT A Body Mass Index follow-up plan has been documented for the patient 12/03/2024 10:31 AM EDT documented as of this encounter Care Teams Hydraulic Plumber Relationship Specialty Start Date End Date Dorothy Hernández APRN [address] [place] [address] PCP - General 04/04/21 12/06/24 documented as of this encounter
--- OUTSIDE RECORDS SUMMARY | 2025-01-25 13:21 | XMS_ITS | Encounter Summary ---
Author Organization [employer] ([place], [place], [place], [place], [place]) Address [address] [place] [address] Care Team Providers Care Assistant Tennis Professional Name Role Phone Unavailable Primary Care Provider Unavailabl e Encounter Details Date Type Department Care Team (Late st Contact Info) Description 05/11/2020 Transcribed Document [facility] [place] [address] ProviderRuperto [place] [address] Social History Tobacco Use Types Packs/Day Years Used Date Smoking Tobacco: Never Assessed Comments Unknown Sex and Gender Information Value Date Recorded Sex Assigned at Female 08/29/2021 4:28 PM CDT Legal Sex Female 4:28 PM CDT Gender Identity Female 08/29/2021 4:28 PM CDT Sexual Orientation Not on file documented as of this encounter Miscellaneous Notes * Cerner Conversion Note - Rpuerto ProviderMD - 05/11/2020 8:53 AM PRINT BUYER [address] , [place] [address] Patient Copy Patient Information: Name: PASCALE BOOTHE Current Date: 05/11/2020 08:53:28 : 1985 Patient Address: [facility] [place] [address] Patient Attending Physician: GINO SOLORIO MD Primary Care Provider: JAYDON GARY APRN-KARLA Primary Care Provider Discharge Diagnosis: Abdominal pain [...] Medication List: [facility], [address] [place], [place] [id number], [phone] docusate (Colace 100 mg oral capsule) 1 [...] Assistance with quitting is available by contacting 3-353-TUCI-NOW. This is a free resource providing counseling, [...] Be sure to sign up for the [employer] patient portal, which gives you 24/ access to your medical information ??? including these discharge instructions ??? using your computer, smartphone, or tablet. Just go to new test company to get started. Questions? Call . [facility] would like to thank you for allowing us to assist you with your healthcare needs. TL Hahn [employer], (or shipping services sales representative) have received the above patient education materials/instructions and have verbalized understanding: Patient Signature _ Date/Time Patient Power Chisel Operator Signature (if needed) Date/Time Clinician/Hospital Power Chisel Operator Signature (if needed) Date/Time documented in this encounter Plan of Treatment Not on file documented as of this encounter Visit Diagnoses Not on filedocumented in this encounter
--- OUTSIDE RECORDS SUMMARY | 2025-01-25 13:21 | XMS_ITS | Encounter Summary ---
Author Organization [employer] ([place], [place], [place], [place], [place]) Address [address] [place] [address] Care Team Providers Care Metal Machinist Name Role Phone Unavailable Primary Care Provider Unavailabl e Encounter Details Date Type Department Care Team (Late st Contact Info) Description 05/09/2020 Transcribed Document [facility] [place] Family [facility] [place] [address] ProviderRuperto MD [address] [place] [address] Social History Tobacco Use Types [...] - Ruperto ProviderMD - 05/09/2020 9:32 AM NAVAL INSPECTOR Patient: PASCALE BOOTHE Age: 34 years Sex: Female : 1985 Associated Diagnoses: None Author: GINO SOLORIO MD Subjective Seen and examined 3/ complains from nausea, abdominal pain did not [...] History of obstructive sleep apnea / IMO [id number] / Confirmed, Active Problems (8) Anxiety Depression [...] WBC 10.3 (MAY 08) H 14.8 (MAY 07) H 11.9 (MAY 06) HB 11.6 (MAY 08) 12.3 (MAY 07) [...]
--- OUTSIDE RECORDS SUMMARY | 2025-01-25 13:21 | XMS_ITS | Encounter Summary ---
Author Organization [employer] ([place], [place], [place], [place], [place]) Address [address] [place] [address] Care Team Providers Care Automotive Quality Manager Name Role Phone Unavailable Primary Care Provider Unavailabl e Encounter Details Date Type Department Care Team (Late st Contact Info) Description 05/07/2020 Transcribed Document [facility] [place] [facility] [place] [address] ProviderRuperto MD [address] [place] [address] Social History Tobacco Use Types Packs/Day [...] - Ruperto ProviderMD - 05/07/2020 9:02 AM TENONER OPERATOR Education-Diabetes Topics Entered On: 05/08/2020 1:40 EST Performed On: 05/07/2020 9:02 EST by Laina Greer V RN Teaching/Learning Assessment Barriers To Learning : None evident Learning Style Preferences Patient : None Learning Style Preferences Family : None Laina Greer V RN - 05/08/2020 1:40 EST Education, Diabetes [...] Laina Greer RN - 05/08/2020 1:40 EST Electronically signed by Jimmy [facility] Conversion Tutoring Assistant Cerner at 06/20/2022 6:18 PM CDT documented in this encounter Plan of Treatment Not on file documented as of this encounter Visit Diagnoses Not on filedocumented in this encounter
--- OUTSIDE RECORDS SUMMARY | 2025-01-25 13:21 | XMS_ITS | Encounter Summary ---
Author Organization [employer] ([place], [place], [place], [place], [place]) Address [address] [place] [address] Care Team Providers Care Offset Lithographic Press Operator Name Role Phone Unavailable Primary Care Provider Unavailabl e Encounter Details Date Type Department Care Team (Late st Contact Info) Description 05/07/2020 Transcribed Document [facility] [place] Medicine [facility] [place] [address] ProviderRuperto MD [address] [place] [address] Social History Tobacco Use Types [...] Conversion Note - Ruperto ProviderMD - 05/07/2020 3:04 PM SWINGING CUT OFF SAW OPERATOR Patient: PASCALE DICKSON Age: 34 Years Sex: [...] at the level of fascia with a [id number] 0 Vicryl using the suture passer. Ports [...]
--- OUTSIDE RECORDS SUMMARY | 2025-01-25 13:21 | XMS_ITS | Encounter Summary ---
Author Organization [employer] ([place], [place], [place], [place], [place]) Address [address] [place] [address] Care Team Providers Care Ict Teacher Name Role Phone Unavailable Primary Care Provider Unavailabl e Encounter Details Date Type Department Care Team (Late st Contact Info) Description 05/10/2020 Transcribed Document [facility] [place] Family Medicine [facility] [place] [address] ProviderRuperto MD [address] [place] [address] Social History Tobacco Use Types [...] - Historical ProviderMD - 05/10/2020 2:00 AM EDUCATIONAL CONSULTANT Global Clinical Leader Details Entered On: 05/10/2020 4:16 EST Performed On: 05/10/2020 2:00 EST by Abeba Henderson RN Order [...] 05/10/2020 4:16 EST Electronically signed by Jimmy [facility] Conversion Bar Assistant Cerner at 06/20/2022 6:13 PM CDT documented in this encounter Plan of Treatment Not on file documented as of this encounter Visit Diagnoses Not on filedocumented in this encounter
--- OUTSIDE RECORDS SUMMARY | 2025-01-25 13:21 | XMS_ITS | Encounter Summary ---
Author Organization [employer] ([place], [place], [place], [place], [place]) Address [address] [place] [address] Care Team Providers Care Licensed Psychiatric Technician Name Role Phone Unavailable Primary Care Provider Unavailabl e Encounter Details Date Type Department Care Team (Late st Contact Info) Description 05/09/2020 Transcribed Document [facility] [place] [facility] [place] [address] ProviderRuperto MD [address] [place] [address] Social History Tobacco Use Types [...] - Historical ProviderMD - 05/09/2020 5:00 AM MARINE STRUCTURAL DESIGNER Chart Check - Review Order Profile Entered On: 05/09/2020 4:54 EST Performed On: 05/09/2020 5:00 EST by Abeba Henderson RN Chart Check Powerplans Initiated/Discontinued as Appropriate : Yes All Active Orders Reviewed : Yes Abeba Henderson RN - 05/09/2020 4:54 EST Electronically signed by Jimmy [facility] Conversion Wind Turbine Controls Engineer Cerdoris at 06/20/2022 6:15 PM CDT documented in this encounter Plan of Treatment Not on file documented as of this encounter Visit Diagnoses Not on filedocumented in this encounter
[2025-01-25 14:42] VITALS: BP 168/86; PULSE 84; RESP 20; TEMP 37.1; O2SAT 98
== END 2025-01-25 14:44 | disposition home or self-care (01) ==
PROVIDERS: Emergency Provider Student in an Organized Health Care Education/Training Program; PCP Family Medicine
DX: M79.641 Pain in right hand (principal); W01.10XA Fall on same level from slipping, tripping and stumbling with subsequent striking against unspecified object, initial encounter
CPT/HCPCS: 73130; 99283